=== PATIENT | female | born 1950 | race Caucasian/White ===

== ENCOUNTER 2017-08-15 19:34 | Inpatient (IN) | payer OTHER ==
[2017-08-15] MEDS ORDERED: ONDANSETRON 4 MG/2 ML VIAL ONE (19:56)
[2017-08-15] MEDS ORDERED: morphine SULFATE 4 MG/ML VIAL ONE ×2 (19:56→22:34)
[2017-08-15] MEDS ORDERED: SODIUM CHLORIDE 0.9% 1000 ML INFUS.BAG IV ONE (19:56)
[2017-08-15] MEDS ORDERED: ONDANSETRON 4 MG/2 ML VIAL IVPUSH ONE (19:56)
[2017-08-15] MEDS ORDERED: morphine SULFATE 4 MG/ML VIAL IVPUSH ONE (19:56)
--- NOTE | 2017-08-15 19:58 | PDOC ---
History of Present Illness - General History Source: Patient, Family Exam Limitations: No Limitations - History of Present Illness Initial Comments: 08/15/17 20:04 The patient is a 67 year old female, with a significant past medical history of asthma, SBO, IBS, diverticulitis(s/p colon resection), who presents to the emergency department complaining of diffuse abdominal pain since last night. The patient reports her pain began last night s/p bowel movement. At the time, patient reports her stool was composed of small hard brian and water. Patient reports she has not had a bowel movement since last night. Today, she reports associated nausea and vomiting (nonbloody/nonbilious). Patients daughter reports giving her Lactulose for her symptoms, with minimum relief. Patient reports her pain is similar to when shes had a bowel obstruction in the past. She denies any associated fever, headache, dizziness, lightheadedness, or joint aches. She denies any dysuria, hematuria, frequency, or urgency. She denies any chest pain, shortness of breath, diaphoresis, or palpitations. She denies any recent travel or sick contacts. Allergies: Lansoprazole, Metronidazole Past Surgical History: Colon resection Social History: Non smoker. No ETOH or recreational drug use. <Quita Wilkins - Last Filed: 08/15/17 21:47> <Ephraim Ramirez - Last Filed: 08/16/17 02:10> - General Chief Complaint: Pain Stated Complaint: I HAVE AN OBSTRUCTION Time Seen by Provider: 08/15/17 19:56 Past History <Quita Wilkins - Last Filed: 08/15/17 21:47> - Past Medical History COPD: No GI Disorders: Yes (IBS,OBSTRUCTION) - Suicide/Smoking/Psychosocial Hx Smoking History: Never smoked Have you smoked in the past 12 months: No Information on smoking cessation initiated: No Hx Alcohol Use: No Drug/Substance Use Hx: No Substance Use Type: None <Ephraim Ramirez - Last Filed: 08/16/17 02:10> - Past Medical History Allergies/Adverse Reactions: Allergies Allergy/AdvReac Type Severity Reaction Status Date / Time lansoprazole [From Prevacid] Allergy Intermediate Swelling Verified 08/15/17 19: 35 metronidazole [From Flagyl] AdvReac VOMITING' Verified 08/15/17 19:35 Home Medications: Ambulatory Orders Fluticasone/Vilanterol [Breo Ellipta 100-25 Mcg INH] 1 each IH DAILY 08/15/17 Loratadine [Claritin] 10 mg PO DAILY 08/15/17 Review of Systems - Review of Systems Able to Perform ROS?: Yes Comments:: 08/15/17 20:04 GENERAL/CONSTITUTIONAL: No fever or chills. No weakness. HEAD, EYES, EARS, NOSE AND THROAT: No change in vision. No ear pain or discharge. No sore throat. CARDIOVASCULAR: No chest pain or shortness of breath. RESPIRATORY: No cough, wheezing, or hemoptysis. GASTROINTESTINAL+Nausea, vomiting, constipation, diffuse abdominal pain. GENITOURINARY: No dysuria, frequency, or change in urination. MUSCULOSKELETAL: No joint or muscle swelling or pain. No neck or back pain. SKIN: No rash NEUROLOGIC: No headache, vertigo, loss of consciousness, or change in strength/ sensation. ENDOCRINE: No increased thirst. No abnormal weight change. HEMATOLOGIC/LYMPHATIC: No anemia, easy bleeding, or history of blood clots. ALLERGIC/IMMUNOLOGIC: No hives or skin allergy. <Quita Wilkins - Last Filed: 08/15/17 21:47> *Physical Exam - Vital Signs Last Vital Signs Temp Pulse Resp BP Pulse Ox 98.4 F 96 H 20 155/69 96 08/15/17 19:35 08/15/17 19:35 08/15/17 19:35 08/15/17 19:35 08/15/17 19:35 - Physical Exam Comments: 08/15/17 20:04 GENERAL: Awake, alert, and fully oriented, in no acute distress HEAD: No signs of trauma EYES: PERRLA, EOMI, sclera anicteric, conjunctiva clear ENT: Auricles normal inspection, hearing grossly normal, nares patent, oropharynx clear without exudates. Moist mucosa NECK: Normal ROM, supple, no lymphadenopathy, JVD, or masses LUNGS: Breath sounds equal, clear to auscultation bilaterally. No wheezes, and no crackles HEART: Regular rate and rhythm, normal S1 and S2, no murmurs, rubs or gallops ABDOMEN: Abdomen distended, tympanitic, and diffusely tender. No guarding, no rebound. No masses EXTREMITIES: Normal range of motion, no edema. No clubbing or cyanosis. No cords, erythema, or tenderness NEUROLOGICAL: Cranial nerves II through XII grossly intact. Normal speech, normal gait SKIN: Warm, Dry, normal turgor, no rashes or lesions noted. <Quita Wilkins - Last Filed: 08/15/17 21:47> - Vital Signs Last Vital Signs Temp Pulse Resp BP Pulse Ox 98.4 F 96 H 20 155/69 96 08/15/17 19:35 08/15/17 19:35 08/15/17 19:35 08/15/17 19:35 08/15/17 19:35 <Ephraim Ramirez - Last Filed: 08/16/17 02:10> ED Treatment Course - LABORATORY CBC & Chemistry Diagram: 08/15/17 21:00 08/15/17 21:00 - RADIOLOGY Radiograph Interpretation: 08/15/17 21:47 EXAM: XR of Abdomen INTERPRETED BY: Dr. Mendes REVIEWED BY: Dr. Ramirez FINDINGS: The lung bases are clear. There is air and feces seen through-out the colon. There is no bowel dilatation or suspicious air-fluid level. No free intraperitoneal air is identified. The imaged osseous structures are unremarkable. No radio-dense calculi. Fibroid uterus. There is a moderate amount of fecal material in the colon which can be seen with constipation. IMPRESSION: No evidence of obstruction, non acute. <Quita Wilkins - Last Filed: 08/15/17 21:47> - LABORATORY CBC & Chemistry Diagram: 08/15/17 21:00 08/15/17 21:00 <Ephraim Ramirez - Last Filed: 08/16/17 02:10> Medical Decision Making - Medical Decision Making 08/16/17 02:08 EKG: sinus at 87, nl axis, nl intervals, no ischemic findings SBO IV fluids symptomatic mgmt d/w Bhavesh of who reviewed the CT and will see in AM d/w Christopher of medicine who will admit <Ephraim Ramirez - Last Filed: 08/16/17 02:10> *DC/Admit/Observation/Transfer - Attestations Scribe Attestion: 08/15/17 20:05 Documentation prepared by Quita Wilkins, acting as medical referral coordinator for Ephraim Ramirez MD. <Quita Wilkins - Last Filed: 08/15/17 21:47> - Discharge Dispostion Admit: Yes <Ephraim Ramirez - Last Filed: 08/16/17 02:10> Diagnosis at time of Disposition: Small intestine obstruction - Discharge Dispostion Disposition: HOME
[2017-08-15 21:17] LABS: BASO % 1.7 % (0-2.0); EOS % 1.2 % (0-4.5); HEMATOCRIT 44.9 % (32.4-45.2); HEMOGLOBIN 15.5 GM/dl (10.7-15.3); LYMPH % 20.4 % (8-40); MCH 31.1 pg (25.7-33.7); MCHC 34.5 g/dl (32.0-36.0); MEAN CELL VOLUME 90.2 fl (80-96); MEAN PLT VOLUME 8.4 fl (7.5-11.1); MONO % 4.2 % (3.8-10.2); NEUT % 72.5 % (42.8-82.8); PLATELET COUNT 507 K/MM3 (134-434); RBC 4.98 M/mm3 (3.60-5.2); RDW 12.7 % (11.6-15.6); WHITE BLOOD COUNT 15.2 K/mm3 (4.0-10.8)
[2017-08-15 21:26] LABS: ALBUMIN 4.2 g/dl (3.5-5.0); ALK PHOS 104 U/L (32-92); ANION GAP 10 (8-16); BILIRUBIN,TOTAL 0.4 mg/dl (0.2-1.0); BLOOD UREA NITROGEN 11 mg/dl (7-18); CALCIUM 9.6 mg/dl (8.4-10.2); CHLORIDE 101 mmol/L (98-107); CO2 23 mmol/L (22-28); CREATININE 0.7 mg/dl (0.6-1.3); GLUCOSE,RANDOM 110 mg/dl (74-106); POTASSIUM 4.8 mmol/L (3.5-5.1); SGOT/AST 32 U/L (10-42); SGPT/ALT 34 U/L (10-40); SODIUM 134 mmol/L (136-145); TOT PROT 7.6 g/dl (6.4-8.3)
[2017-08-15 21:59] LABS: LIPASE 135 U/L (73-393)
[2017-08-15] MEDS ORDERED: morphine CARPU-JECT 4 MG/1 ML DISP.SYRIN IVPUSH ONE (22:33)
[2017-08-16] MEDS ORDERED: HURRICAINE SP EXT TUBE 1 EA EACH TP ONE (01:19)
[2017-08-16] MEDS ORDERED: LIDOCAINE HCL 2% JELLY (5 ML/TUBE) ONE (01:19)
[2017-08-16] MEDS: LIDOCAINE VISCOUS 2% ORAL/TOP 20 ML UNIT-DOSE CUP MM ONE ×2 (01:20→01:21)
[2017-08-16] MEDS: HURRICAINE SP EXT TUBE 1 EA EACH TP ONE ×2 (01:20→01:21)
[2017-08-16] MEDS ORDERED: LIDOCAINE VISCOUS 2% ORAL/TOP 20 ML UNIT-DOSE CUP ONE (01:20)
--- NOTE | 2017-08-16 01:20 | CONSULT ---
Consult Consult Specialty:: general surgery Referred by:: Dr. Ramirez Reason for Consultation:: bowel obstrution - History of Present Illness Chief Complaint: I have an obstuction History of Present Illness: 67yo female patinet of Dr. Kayla Montejo [facility] obesity, pre-diabetes, thrombocytosis , hypercholeterolemia, chronic constipation, diverticulitis had 3 hospitalizations prior to surgery, s/p sigmoidcolectomy at [facility], s/p right knee partial arthoplasty at [facility], multiple SBOs presented to emergency department with lower abdominal pain and vomiting reporting that she has a bowel obstruction. She has had similar episodes (2-3 times) since 2013 after having an an elective laparoscopic hybrid sigmoid colectomy. She was treated them with NGT decompression and resolved without operation. This episode started with mid-epigastric pain on thursday. She took some advil and zantac without relief. Thursday she then had and episode of emesis at 7pm that contained food she had for breakfast. He abdomen was distended and no flatus and she was reminded of previous episodes. He daughter ([employer]) prescribed some lactulose for her. In the ED she had a second episode of emesis. Now she has left lower abdominal pain, rated 3/10, non radiating. CT scan showed a transition point in the left lower abdomen. NGT put out a total of 500ml. This morning she had a lot of flatus and feels better. He last colonoscopy was in 2012. We were asked to assess - History Source History Provided By: Patient, Medical Record Limitations to Obtaining History: No Limitations - Past Medical History Gastrointestinal: Yes: Constipation, Diverticulitis, Other (bowel obstruction ) Heme/Onc: Yes: Other (Thrombocytosis on ASA) Musculoskeletal: Yes: Chronic low back pain, Osteoarthritis - Past Surgical History Past Surgical History: Yes: Colectomy (elective laparoscopic hybrid sigmoidectomy ) Additional Surgical History: right knee partial arthoplasty at [facility] - Alcohol/Substance Use Hx Alcohol Use: No History of Substance Use: reports: None - Smoking History Smoking history: Never smoked Have you smoked in the past 12 months: No - Social History History of Recent Travel: No Home Medications - Allergies Allergies/Adverse Reactions: Allergies Allergy/AdvReac Type Severity Reaction Status Date / Time lansoprazole [From Prevacid] Allergy Intermediate Swelling Verified 08/15/17 19: 35 metronidazole [From Flagyl] AdvReac VOMITING' Verified 08/15/17 19:35 - Home Medications Home Medications: Ambulatory Orders Fluticasone/Vilanterol [Breo Ellipta 100-25 Mcg INH] 1 each IH DAILY 08/15/17 Loratadine [Claritin] 10 mg PO DAILY 08/15/17 Aspirin [ASA -] PO BID 08/16/17 Family Disease History - Family Disease History Family Disease History: Other: Mother (Leukemia ) Review of Systems - Review of Systems Constitutional: denies: Chills, Fever, Unintentional Wgt. Loss HENT: denies: Difficult Swallowing, Throat Pain Neck: denies: Pain on Movement, Swollen Glands, Tenderness Cardiovascular: denies: Chest Pain, Palpitations Respiratory: denies: Cough, SOB Gastrointestinal: reports: Abdominal Pain, Constipation Genitourinary: denies: Burning, Discharge, Dysuria Musculoskeletal: reports: Extremity Pain (right knee) Endocrine: denies: Unexplained Weight Gain, Unexplained Weight Loss Hematology/Lymphatic: denies: Easily Bruised, Excessive Bleeding Psychiatric: denies: Anxiety, Depression Physical Exam Vital Signs: Vital Signs Temperature 98.4 F 08/15/17 19:35 Pulse Rate 96 H 08/15/17 19:35 Respiratory Rate 20 08/15/17 19:35 Blood Pressure 155/69 08/15/17 19:35 O2 Sat by Pulse Oximetry (%) 96 08/15/17 19:35 Vital Signs Period Temp Pulse Resp BP Sys/Sterling Pulse Ox Last 24 Hr 98.4 F-99 F 68-96 18-20 138-155/63-69 95-99 Intake & Output 08/15/17 08/16/17 08/16/17 23:59 07:59 15:59 Intake Total 400 0 Balance 400 0 Weight 150 lb 168 lb Intake: IV 400 Normal Saline - 1,000 ml 400 @ 100 mls/hr IV [facility]IR [facility] Rx#:[id number] Oral 0 Other: Voiding Method Toilet Toilet Bowel Movement No Height 5 ft 1 in 5 ft 1 in Body Mass Index (BMI) 28.3 31.7 Weight Measurement Method Standing Scale Weight Measurement Method Estimated by Staff Constitutional: Yes: No Distress, Calm, Obese Eyes: Yes: Conjunctiva Clear, EOM Intact HENT: Yes: Atraumatic, Normocephalic Neck: Yes: Supple, Trachea Midline Cardiovascular: Yes: Regular Rate and Rhythm, S1, S2. No: Murmur Respiratory: Yes: Regular, CTA Bilaterally Gastrointestinal: Yes: Normal Bowel Sounds, Soft, Abdomen, Obese, Tenderness ( LLQ). No: Tenderness, Epigastrium, Tenderness, Rebound ...Rectal Exam: Yes: Deferred Renal/: No: CVA Tenderness - Left, CVA Tenderness - Right Musculoskeletal: Yes: Back Pain Extremities: Yes: Other (right knee scar well healed). No: Amputation, Cold, Cool Edema: No Peripheral Pulses WNL: Yes Wound/Incision: Yes: Other (healed pfannensteil? (lap assistance port), supraumbilical scar as well) Neurological: Yes: Alert, Oriented Psychiatric: Yes: Alert, Oriented Labs: CBC,CMP WBC 11.9 K/mm3 (4.0-10.8) H 08/16/17 06:50 RBC 4.14 M/mm3 (3.60-5.2) 08/16/17 06:50 Hgb 13.2 GM/dl (10.7-15.3) D 08/16/17 06:50 Hct 37.8 % (32.4-45.2) D 08/16/17 06:50 MCV 91.3 fl (80-96) 08/16/17 06:50 MCH 31.9 pg (25.7-33.7) 08/16/17 06:50 MCHC 34.9 g/dl (32.0-36.0) 08/16/17 06:50 RDW 12.2 % (11.6-15.6) 08/16/17 06:50 Plt Count 451 K/MM3 (134-434) H 08/16/17 06:50 MPV 8.3 fl (7.5-11.1) 08/16/17 06:50 Neutrophils % 74.8 % (42.8-82.8) 08/16/17 06:50 Lymphocytes % 18.2 % (8-40) 08/16/17 06:50 Monocytes % 5.6 % (3.8-10.2) 08/16/17 06:50 Eosinophils % 1.1 % (0-4.5) 08/16/17 06:50 Basophils % 0.3 % (0-2.0) 08/16/17 06:50 Sodium 133 mmol/L (136-145) L 08/16/17 06:50 Potassium 4.0 mmol/L (3.5-5.1) 08/16/17 06:50 Chloride 104 mmol/L (98-107) 08/16/17 06:50 Carbon Dioxide 24 mmol/L (22-28) 08/16/17 06:50 Anion Gap 5 (8-16) L 08/16/17 06:50 BUN 10 mg/dl (7-18) 08/16/17 06:50 Creatinine 0.5 mg/dl (0.6-1.3) L D 08/16/17 06:50 Creat Clearance w eGFR > 60 (>60) 08/16/17 06:50 POC Glucometer 158 UNITS (80-120) 08/16/17 02:57 Random Glucose 113 mg/dl (74-106) H 08/16/17 06:50 Lactic Acid 1.4 mmol/L (0.0-2.0) 08/16/17 08:15 Calcium 8.3 mg/dl (8.4-10.2) L 08/16/17 06:50 Magnesium 1.9 mg/dL (1.8-2.4) 08/16/17 06:50 Total Bilirubin 0.4 mg/dl (0.2-1.0) 08/16/17 06:50 AST 23 U/L (10-42) D 08/16/17 06:50 ALT 28 U/L (10-40) 08/16/17 06:50 Alkaline Phosphatase 83 U/L (32-92) D 08/16/17 06:50 Total Protein 6.1 g/dl (6.4-8.3) L 08/16/17 06:50 Albumin 3.4 g/dl (3.5-5.0) L 08/16/17 06:50 Lipase 135 U/L (73-393) 08/15/17 21:00 Imaging - Results X-ray: Report Reviewed, Image Reviewed Cat Scan: Report Reviewed, Image Reviewed (partial bowel obstruction pattern with transition point in LLQ anteriorly. dilated contrast filled stomach) Problem List - Problems (1) Small intestine obstruction Assessment/Plan: 67yo female MMP with resolving SBO maybe element of acute diverticulitis (wbc 15.2 -->11.9), Lactic acid (2.5 -->1.4), NGT 500ml total, now passing flatus, distension improved. She does not require emergency surgery but should be monitored closely. NPO and IVF hydration IV antibiotics empiric - mefoxin NGT decomprssion repeat labs correct electrolytes repeat abdominal xray serial abdominal exams Thank you for the opportunity to participate in the care of this patient. Code(s): K56.609 - UNSP INTESTNL OBST, UNSP TO PARTIAL VERSUS COMPLETE OBST (2) Diverticulitis large intestine Code(s): K57.32 - DVTRCLI OF LG INT W/O PERFORATION OR ABSCESS W/O BLEEDING (3) Abdominal pain, left lower quadrant Code(s): R10.32 - LEFT LOWER QUADRANT PAIN (4) Chronic constipation Code(s): K59.09 - OTHER CONSTIPATION (5) Osteoarthritis Code(s): M19.90 - UNSPECIFIED OSTEOARTHRITIS, UNSPECIFIED SITE (6) Hypercholesteremia Code(s): E78.00 - PURE HYPERCHOLESTEROLEMIA, UNSPECIFIED (7) Obesity (BMI 30.0-34.9) Code(s): E66.9 - OBESITY, UNSPECIFIED (8) Pre-diabetes Code(s): R73.03 - PREDIABETES
[2017-08-16] MEDS: morphine CARPU-JECT 2 MG/1 ML DISP.SYRIN IVPUSH PRN ×2 (03:49→22:24)
[2017-08-16] MEDS: SODIUM CHLORIDE 1,000 ML IV SCH (03:53)
[2017-08-16 04:29] VITALS: BMI 31.7
--- NOTE | 2017-08-16 07:33 | HP ---
CHIEF COMPLAINT: abdominal pain PCP: HISTORY OF PRESENT ILLNESS: Patient is a 67 year old female with a significant past medical history of asthma, SBO, IBS, diverticulitis (s/p colon resection). She presents to the ED with complaints of abdominal x 1 day. The patient reports her pain began on the evening of 08/14 after a bowel movement. She states that her bowel movements are usually are normal, and regular. Yesterday she reports having nausea, vomiting (nonbloody/nonbilious). Patient has had small bowel obstructions in the past and states that the pain she is having is similar to when she had SBO in the past. She denies any associated fever, headache, dizziness, lightheadedness, or joint aches. She denies any dysuria, hematuria, frequency, or urgency. She denies any chest pain, shortness of breath, diaphoresis, or palpitations. She denies any recent travel or sick contacts. On exam, she denies abdominal pain but is having nausea. She states that she is now passing gas. ER course was notable for: (1) NGT with 200cc light brown drainage (2) lactic acidosis 2.5 (3) abd xray shows no sign of free air. Large air fluid level in the stomach. There is a large fibroid calcification in the pelvis. There is some retained stool in the colon with some air distestend loops of small bowel seen centrally. There are some scattered air fluid levels. Organomegaly is not seen. Upper abdominal calcificatins of significance or not visualized. Recent Travel: PAST MEDICAL HISTORY: asthma, SBO, IBS, diverticulitis (s/p colon resection) PAST SURGICAL HISTORY: diverticulitis (s/p colon resection), right knee partial arthoplasty Social History: Smoking: denies Alcohol: denies Drugs: denies Family History: Allergies lansoprazole [From Prevacid] Allergy (Intermediate, Verified 08/15/17 19:35) Swelling metronidazole [From Flagyl] Adverse Reaction (Verified 08/15/17 19:35) VOMITING' HOME MEDICATIONS: Home Medications Medication Instructions Recorded Fluticasone/Vilanterol [Breo 1 each IH DAILY 08/15/17 Ellipta 100-25 Mcg INH] Loratadine [Claritin] 10 mg PO DAILY 08/15/17 Aspirin [ASA -] PO BID 08/16/17 REVIEW OF SYSTEMS CONSTITUTIONAL: Absent: fever, chills, diaphoresis, generalized weakness, malaise, loss of appetite, weight change HEENT: Absent: rhinorrhea, nasal congestion, throat pain, throat swelling, difficulty swallowing, mouth swelling, ear pain, eye pain, visual changes CARDIOVASCULAR: Absent: chest pain, syncope, palpitations, irregular heart rate, lightheadedness , peripheral edema RESPIRATORY: Absent: cough, shortness of breath, dyspnea with exertion, orthopnea, wheezing, stridor, hemoptysis GENITOURINARY: Absent: dysuria, frequency, urgency, hesitancy, hematuria, flank pain, genital pain MUSCULOSKELETAL: Absent: myalgia, arthralgia, joint swelling, back pain, neck pain SKIN: Absent: rash, itching, pallor HEMATOLOGIC/IMMUNOLOGIC: Absent: easy bleeding, easy bruising, lymphadenopathy, frequent infections ENDOCRINE: Absent: unexplained weight gain, unexplained weight loss, heat intolerance, cold intolerance NEUROLOGIC: Absent: headache, focal weakness or paresthesias, dizziness, unsteady gait, seizure, mental status changes, bladder or bowel incontinence PSYCHIATRIC: Absent: anxiety, depression, suicidal or homicidal ideation, hallucinations. PHYSICAL EXAMINATION Vital Signs - 24 hr 08/15/17 08/16/17 08/16/17 19:35 00:00 04:15 Temperature 98.4 F 99 F Pulse Rate 96 H 85 Pulse Rate [ 68 Left Radial] Respiratory 20 18 18 Rate Blood Pressure 155/69 138/63 Blood Pressure 142/68 [Left Arm] O2 Sat by Pulse 96 99 95 Oximetry (%) GENERAL: Awake, alert, and fully oriented, in no acute distress. HEAD: Normal with no signs of trauma. EYES: Pupils equal, round and reactive to light, extraocular movements intact, sclera anicteric, conjunctiva clear. No lid lag. EARS, NOSE, THROAT: Ears normal, nares patent, oropharynx clear without exudates. Moist mucous membranes. NECK: Normal range of motion, supple without lymphadenopathy, JVD, or masses. LUNGS: Breath sounds equal, clear to auscultation bilaterally. No wheezes, and no crackles. No accessory muscle use. HEART: Regular rate and rhythm, normal S1 and S2 without murmur, rub or gallop. ABDOMEN: soft, mildly distended, non tender, + bowel sounds MUSCULOSKELETAL: Normal range of motion at all joints. No bony deformities or tenderness. No CVA tenderness. UPPER EXTREMITIES: 2+ pulses, warm, well-perfused. No cyanosis. No clubbing. No peripheral edema. LOWER EXTREMITIES: 2+ pulses, warm, well-perfused. No calf tenderness. No peripheral edema. NEUROLOGICAL: Cranial nerves II-XII intact. Normal speech. Normal gait. Laboratory Results - last 24 hr 08/15/17 08/15/17 08/16/17 21:00 21:00 02:40 WBC 15.2 H RBC 4.98 Hgb 15.5 H Hct 44.9 MCV 90.2 MCH 31.1 MCHC 34.5 RDW 12.7 Plt Count 507 H MPV 8.4 Neutrophils % 72.5 Lymphocytes % 20.4 Monocytes % 4.2 Eosinophils % 1.2 Basophils % 1.7 Sodium 134 L Potassium 4.8 Chloride 101 Carbon Dioxide 23 Anion Gap 10 BUN 11 Creatinine 0.7 Creat Clearance w eGFR > 60 POC Glucometer Random Glucose 110 H Lactic Acid 2.5 H* Calcium 9.6 Total Bilirubin 0.4 AST 32 ALT 34 Alkaline Phosphatase 104 H Total Protein 7.6 Albumin 4.2 Lipase 135 08/16/17 02:57 WBC RBC Hgb Hct MCV MCH MCHC RDW Plt Count MPV Neutrophils % Lymphocytes % Monocytes % Eosinophils % Basophils % Sodium Potassium Chloride Carbon Dioxide Anion Gap BUN Creatinine Creat Clearance w eGFR POC Glucometer 158 Random Glucose Lactic Acid Calcium Total Bilirubin AST ALT Alkaline Phosphatase Total Protein Albumin Lipase ASSESSMENT/PLAN: Patient is a 67 year old female with a significant past medical history of asthma, SBO, IBS, diverticulitis (s/p colon resection). She presents to the ED with complaints of abdominal x 1 day. The patient reports her pain began on the evening of 08/14 after a bowel movement. She states that her bowel movements are usually are normal, and regular. Yesterday she reports having nausea, vomiting (nonbloody/nonbilious). Patient has had small bowel obstructions in the past and states that the pain she is having is similar to when she had SBO in the past. She denies any associated fever, headache, dizziness, lightheadedness, or joint aches. She denies any dysuria, hematuria, frequency, or urgency. She denies any chest pain, shortness of breath, diaphoresis, or palpitations. She denies any recent travel or sick contacts. On exam, she denies abdominal pain but is having nausea. She states that she is now passing gas. Imaging: CT scan: partial bowel obstruction pattern with transition point in LLQ anteriorly. dilated contrast filled stomach Abdominal xray: no signs of SBO, contrast passage into colon. fibroid calcification. NGT in place GI: Abdominal pain, acute NPO, IVF hydration, antibiotics NGT to low int. sx, 290 cc light brown Monitor labs, monitor electrolytes Zofran prn, pain management Serial abdominal exam + bowel sounds Monitor output Surgery following ID following Lactic acidosis, resolved Asthma, history not in acute exacerbation F.E.N. Fluids: IVF, NPO Electrolytes: monitor Nutrition: npo Prophylaxis: ambulatory GI; pepcid IV Disposition: full code Visit type - Emergency Visit Emergency Visit: Yes ED Registration Date: 08/16/17 Care time: The patient presented to the Emergency Department on the above date and was hospitalized for further evaluation of their emergent condition. - New Patient This patient is new to me today: Yes Date on this admission: 08/16/17 - Critical Care Critical Care patient: No
[2017-08-16] MEDS ORDERED: cefOXitin SODIUM 2 GM VIAL (RESTRICTED TO ID) IVPB ONE (07:34)
[2017-08-16] MEDS ORDERED: ONDANSETRON 4 MG/2 ML VIAL IVPUSH PRN (07:37)
[2017-08-16 08:48] LABS: BASO % 0.3 % (0-2.0); EOS % 1.1 % (0-4.5); HEMATOCRIT 37.8 % (32.4-45.2); HEMOGLOBIN 13.2 GM/dl (10.7-15.3); LYMPH % 18.2 % (8-40); MCH 31.9 pg (25.7-33.7); MCHC 34.9 g/dl (32.0-36.0); MEAN CELL VOLUME 91.3 fl (80-96); MEAN PLT VOLUME 8.3 fl (7.5-11.1); MONO % 5.6 % (3.8-10.2); NEUT % 74.8 % (42.8-82.8); PLATELET COUNT 451 K/MM3 (134-434); RBC 4.14 M/mm3 (3.60-5.2); RDW 12.2 % (11.6-15.6); WHITE BLOOD COUNT 11.9 K/mm3 (4.0-10.8)
[2017-08-16] MEDS ORDERED: CEFOXITIN SODIUM 1 GM in DEXTROSE 5%-WATER - 100 ML IVPB ONE (09:00)
[2017-08-16 09:01] LABS: ALBUMIN 3.4 g/dl (3.5-5.0); ALK PHOS 83 U/L (32-92); ANION GAP 5 (8-16); BILIRUBIN,TOTAL 0.4 mg/dl (0.2-1.0); BLOOD UREA NITROGEN 10 mg/dl (7-18); CALCIUM 8.3 mg/dl (8.4-10.2); CHLORIDE 104 mmol/L (98-107); CO2 24 mmol/L (22-28); CREATININE 0.5 mg/dl (0.6-1.3); GLUCOSE,RANDOM 113 mg/dl (74-106); MAGNESIUM 1.9 mg/dL (1.8-2.4); SGOT/AST 23 U/L (10-42); SGPT/ALT 28 U/L (10-40); SODIUM 133 mmol/L (136-145); TOT PROT 6.1 g/dl (6.4-8.3)
[2017-08-16] MEDS: HEPARIN NA (PORCINE) 5,000 UNITS/ML 1ML VIAL SQ SCH ×4 (10:10→21:35)
[2017-08-16] MEDS: FAMOTIDINE IV 20 MG/12 ML VIAL IVPUSH SCH ×2 (10:17→22:24)
[2017-08-16] MEDS ORDERED: ACETAMINOPHEN 1000 MG/100 ML VIAL (NON FORMULARY) IVPB ONE ×2 (11:45→20:49)
--- NOTE | 2017-08-16 12:45 | CON.ID ---
Consult Consult Specialty:: infectious diseases Reason for Consultation:: bowel obstruction,lactic acidosis - History of Present Illness Chief Complaint: abd pain History of Present Illness: 67yo female with PMH obesity, pre-diabetes, thrombocytosis, hypercholeterolemia , chronic constipation, multiple episodes of diverticulitis , s/p sigmoidcolectomy s/p right knee partial arthoplasty , multiple SBOs admitted because of lower abd pain mainly in the left lower quadrant. patient also reports that she was having episodes of vomiting patient had such episodes in the past and was treated conservatively. patient was worked up and CT scan showed a transition point in the left lower abdomen. patient was seen by surgical team who is planning to watch the patient conservatively she currently is comfortable and has a ng tube placed which is draining says after ng tube she feels better - History Source History Provided By: Patient Limitations to Obtaining History: No Limitations - Past Medical History Gastrointestinal: Yes: Constipation, Diverticulitis, Other (bowel obstruction ) Musculoskeletal: Yes: Chronic low back pain, Osteoarthritis - Past Surgical History Past Surgical History: Yes: Colectomy (elective laparoscopic hybrid sigmoidectomy ) Additional Surgical History: right knee partial arthoplasty at [facility] - Alcohol/Substance Use Hx Alcohol Use: No History of Substance Use: reports: None - Smoking History Smoking history: Never smoked Have you smoked in the past 12 months: No - Social History History of Recent Travel: No Home Medications - Allergies Allergies/Adverse Reactions: Allergies Allergy/AdvReac Type Severity Reaction Status Date / Time lansoprazole [From Prevacid] Allergy Severe Swelling Verified 02/18/15 08:06 metronidazole [From Flagyl] AdvReac Intermediate Vomiting Verified 02/18/15 08: 06 - Home Medications Home Medications: Ambulatory Orders Non-Formulary 9 grams PO BID 02/18/15 Fluticasone/Vilanterol [Breo Ellipta 100-25 Mcg INH] 1 each IH DAILY 08/15/17 Loratadine [Claritin] 10 mg PO DAILY 08/15/17 Aspirin [ASA -] PO BID 08/16/17 Family Disease History - Family Disease History Family Disease History: Other: Mother (Leukemia ) Review of Systems - Review of Systems Constitutional: reports: No Symptoms Eyes: reports: No Symptoms HENT: reports: No Symptoms Cardiovascular: reports: No Symptoms Respiratory: reports: No Symptoms Gastrointestinal: reports: Abdominal Pain, Vomiting, Other Genitourinary: reports: No Symptoms Musculoskeletal: reports: No Symptoms Endocrine: reports: No Symptoms Hematology/Lymphatic: reports: No Symptoms Psychiatric: reports: No Symptoms Physical Exam Vital Signs: Vital Signs Temperature 99 F 08/16/17 04:15 Pulse Rate 85 08/16/17 04:15 Respiratory Rate 18 08/16/17 08:20 Blood Pressure 138/63 08/16/17 04:15 O2 Sat by Pulse Oximetry (%) 95 08/16/17 08:20 Constitutional: Yes: Well Nourished, Calm, Mild Distress, Obese Eyes: Yes: Conjunctiva Clear HENT: Yes: Atraumatic, Normocephalic Neck: Yes: Supple, Trachea Midline Respiratory: Yes: Regular, Poor Air Entry (at the bases) Gastrointestinal: Yes: Soft, Tenderness, Other (absent bowel sounds ng tube in place) Musculoskeletal: Yes: WNL Extremities: Yes: WNL Neurological: Yes: Alert, Oriented Psychiatric: Yes: Alert, Oriented Labs: CBC, BMP 08/16/17 06:50 08/16/17 06:50 Imaging - Results Chest X-ray: Report Reviewed, Image Reviewed X-ray: Report Reviewed, Image Reviewed Cat Scan: Report Reviewed, Image Reviewed Assessment/Plan Problem List - Problems (1) Small intestine obstruction Code(s): K56.609 - UNSP INTESTNL OBST, UNSP TO PARTIAL VERSUS COMPLETE OBST (2) Diverticulitis large intestine Code(s): K57.32 - DVTRCLI OF LG INT W/O PERFORATION OR ABSCESS W/O BLEEDING (3) Abdominal pain, left lower quadrant Code(s): R10.32 - LEFT LOWER QUADRANT PAIN (4) Chronic constipation Code(s): K59.09 - OTHER CONSTIPATION (5) Osteoarthritis Code(s): M19.90 - UNSPECIFIED OSTEOARTHRITIS, UNSPECIFIED SITE (6) Hypercholesteremia Code(s): E78.00 - PURE HYPERCHOLESTEROLEMIA, UNSPECIFIED (7) Obesity (BMI 30.0-34.9) Code(s): E66.9 - OBESITY, UNSPECIFIED (8) Pre-diabetes Code(s): R73.03 - PREDIABETES plan continue mgmt as per surgery ng tube suction hydration continue abx
[2017-08-16] MEDS ORDERED: PIPERACILLIN/TAZOB 3.375 GM 50 ML IVPB SCH (18:00)
[2017-08-16] MEDS: PIPERACILLIN/TAZOB 3.375 GM 3.375 GM in DEXTROSE 5%-WATER - 50 ML IVPB SCH (18:13)
[2017-08-17] MEDS: PIPERACILLIN/TAZOB 3.375 GM 3.375 GM in DEXTROSE 5%-WATER - 50 ML IVPB SCH ×3 (02:02→18:22)
[2017-08-17] MEDS: SODIUM CHLORIDE 1,000 ML IV SCH (02:30)
--- NOTE | 2017-08-17 08:11 | PN ---
Physical Exam: SUBJECTIVE: Patient seen and examined, ambulatory throughout nursing station, reports one bm of small hard stool, patient denies any nausea, patient is declining any venipuncture. OBJECTIVE: Patient is a 67 year old female with a significant past medical history of asthma, SBO, IBS, diverticulitis (s/p colon resection). Patient was admitted from the emergency department for a small bowel obstruction Vital Signs Period Temp Pulse Resp BP Sys/Sterling Pulse Ox Last 24 Hr 97.6 F-98.4 F 70-79 18-20 117-140/34-59 94-97 GENERAL: The patient is awake, alert, and fully oriented, in no acute distress. HEAD: Normal with no signs of trauma. EYES: PERRL, extraocular movements intact, sclera anicteric, conjunctiva clear. No ptosis. ENT: Ears normal, nares patent, oropharynx clear without exudates, moist mucous membranes. NECK: Trachea midline, full range of motion, supple. LUNGS: Breath sounds equal, clear to auscultation bilaterally, no wheezes, no crackles, no accessory muscle use. HEART: Regular rate and rhythm, S1, S2 without murmur, rub or gallop. ABDOMEN: Soft, diffuse abdominal tenderness, nondistended, hypoactive bowel sounds, no guarding, no rebound, no hepatosplenomegaly, no masses. EXTREMITIES: 2+ pulses, warm, well-perfused, no edema. NEUROLOGICAL: Cranial nerves II through XII grossly intact. Normal speech, gait not observed. PSYCH: Normal mood, normal affect. SKIN: Warm, dry, normal turgor, no rashes or lesions noted Laboratory Results - last 24 hr 08/16/17 08/16/17 08/16/17 06:50 06:50 08:15 WBC 11.9 H RBC 4.14 Hgb 13.2 D Hct 37.8 D MCV 91.3 MCH 31.9 MCHC 34.9 RDW 12.2 Plt Count 451 H MPV 8.3 Neutrophils % 74.8 Lymphocytes % 18.2 Monocytes % 5.6 Eosinophils % 1.1 Basophils % 0.3 Sodium 133 L Potassium 4.0 Chloride 104 Carbon Dioxide 24 Anion Gap 5 L BUN 10 Creatinine 0.5 L D Creat Clearance w eGFR > 60 POC Glucometer Random Glucose 113 H Lactic Acid 1.4 Calcium 8.3 L Magnesium 1.9 Total Bilirubin 0.4 AST 23 D ALT 28 Alkaline Phosphatase 83 D Total Protein 6.1 L Albumin 3.4 L 08/16/17 08/17/17 21:17 05:40 WBC RBC Hgb Hct MCV MCH MCHC RDW Plt Count MPV Neutrophils % Lymphocytes % Monocytes % Eosinophils % Basophils % Sodium Potassium Chloride Carbon Dioxide Anion Gap BUN Creatinine Creat Clearance w eGFR POC Glucometer 102 103 Random Glucose Lactic Acid Calcium Magnesium Total Bilirubin AST ALT Alkaline Phosphatase Total Protein Albumin Active Medications Generic Name Dose Route Start Last Admin Trade Name Freq PRN Reason Stop Dose Admin Acetaminophen 1,000 mg 08/17/17 08:15 Ofirmev Injection - IVPB 08/17/17 08:16 ONCE ONE Heparin Sodium (Porcine) 5,000 unit 08/16/17 10:00 08/16/17 21:35 Heparin - SQ Not Given BID JOHANN Sodium Chloride 1,000 mls @ 100 mls/hr 08/16/17 02:30 08/17/17 02:30 Normal Saline - IV 100 mls/hr ASDIR JOHANN Administration Famotidine 20 mg in 12 mls @ 144 mls/hr 08/16/17 10:00 08/16/17 22:24 Pepcid 20 Mg/12 Ml Push IVPUSH 144 mls/hr BID JOHANN Administration Piperacillin Sod/Tazobactam 50 mls @ 100 mls/hr 08/16/17 18:00 08/17/17 02:02 Sod 3.375 gm/ Dextrose IVPB 100 mls/hr Q8H-IV JOHANN Administration Morphine Sulfate 2 mg 08/16/17 03:39 08/16/17 22:24 Morphine Injection - IVPUSH 2 mg Q4H PRN Administration PAIN LEVEL 6-10 Ondansetron HCl 4 mg 08/16/17 07:37 Zofran Injection IVPUSH Q6H PRN NAUSEA IMAGING CT scan: partial bowel obstruction pattern with transition point in LLQ anteriorly. dilated contrast filled stomach Abdominal xray: no signs of SBO, contrast passage into colon. fibroid calcification. NGT in place ABD XRAY: no signs of small bowel obstruction, ngt in stomach ASSESSMENT/PLAN:GI: 1) GI SBO - resolved after review of xray large amounts of stool noted in colon, discussed with Dr Ospina (surgeon), nulyetly ordered - continue serial abdominal exams - pt adamently declined venipuncture, pt is afebrile, continue empiric zosyn - Dr Ospina (surgery) consulted and following 2) pulm asthma - no acute excerbation at this time, continue prn albuterol F.E.N. Fluids: IVF, NPO Electrolytes: monitor Nutrition: npo Prophylaxis: ambulatory GI; pepcid IV Disposition: full code Visit type - Emergency Visit Emergency Visit: Yes ED Registration Date: 08/16/17 Care time: The patient presented to the Emergency Department on the above date and was hospitalized for further evaluation of their emergent condition. - New Patient This patient is new to me today: Yes Date on this admission: 08/17/17 - Critical Care Critical Care patient: No - Discharge Referral Referred to [facility] Med P.C.: No
[2017-08-17] MEDS ORDERED: ACETAMINOPHEN 1000 MG/100 ML VIAL (NON FORMULARY) IVPB ONE (08:15)
--- NOTE | 2017-08-17 09:44 | PN ---
Progress Note, Physician Chief Complaint: SBO History of Present Illness: 67yo female PMH obesity, pre-diabetes, thrombocytosis, hypercholeterolemia, chronic constipation, diverticulitis had 3 hospitalizations prior to surgery, s/ p sigmoidcolectomy, multiple SBOs presented to emergency department with lower abdominal pain and vomiting reporting that she has a bowel obstruction. NGT output very low. she reports having flatus, xray shows chronic constipation - Current Medication List Current Medications: Active Medications Heparin Sodium (Porcine) (Heparin -) 5,000 unit SQ BID JOHANN Last Admin: 08/16/17 21:35 Dose: Not Given Sodium Chloride (Normal Saline -) 1,000 mls @ 100 mls/hr IV ASDIR JOHANN Last Admin: 08/17/17 02:30 Dose: 100 mls/hr Piperacillin Sod/Tazobactam (Sod 3.375 gm/ Dextrose) 50 mls @ 100 mls/hr IVPB Q8H-IV JOHANN Last Admin: 08/17/17 02:02 Dose: 100 mls/hr Famotidine/Sodium Chloride (Pepcid 20 Mg Premixed Ivpb -) 20 mg in 50 mls @ 100 mls/hr IVPB BID JOHANN Morphine Sulfate (Morphine Injection -) 2 mg IVPUSH Q4H PRN PRN Reason: PAIN LEVEL 6-10 Last Admin: 08/16/17 22:24 Dose: 2 mg Ondansetron HCl (Zofran Injection) 4 mg IVPUSH Q6H PRN PRN Reason: NAUSEA Polyethylene Glycol/Electrolytes (Nulytely) 4,000 ml PO ONCE ONE Stop: 08/17/17 09:37 - Objective Vital Signs: Vital Signs Temperature 97.6 F 08/17/17 04:00 Pulse Rate 79 08/17/17 04:00 Respiratory Rate 18 08/17/17 04:00 Blood Pressure 117/34 08/17/17 04:00 O2 Sat by Pulse Oximetry (%) 97 08/17/17 06:01 Vital Signs Period Temp Pulse Resp BP Sys/Sterling Pulse Ox Last 24 Hr 97.6 F-98.4 F 70-79 18-20 117-140/34-59 94-97 Intake & Output 08/16/17 08/17/17 08/17/17 23:59 07:59 15:59 Intake Total 1200 1100 Output Total 200 200 Balance 1000 900 Intake: IV 1100 1100 Normal Saline - 1,000 ml 1000 1100 @ 100 mls/hr IV ASDIR JOHANN Rx#:[id number] PEPCID 20 MG/12 ML PUSH 100 20 mg In 12 ml @ 144 mls/ hr IVPUSH BID JOHANN Rx#: [id number] IVPB 100 Output: Gastric Drainage 200 200 Other: Voiding Method Toilet Toilet # Unmeasured Voids Void 2 2 Bowel Movement No No Constitutional: Yes: Well Nourished, No Distress, Calm Eyes: Yes: Conjunctiva Clear, EOM Intact HENT: Yes: Atraumatic, Normocephalic Neck: Yes: Supple, Trachea Midline Cardiovascular: Yes: Regular Rate and Rhythm, S1, S2. No: Murmur Respiratory: Yes: Regular, CTA Bilaterally Gastrointestinal: Yes: Normal Bowel Sounds, Soft, Abdomen, Obese, Tenderness ( imorived) Genitourinary: No: CVA Tenderness - Left, CVA Tenderness - Right Extremities: No: Cool, Cyanosis Edema: Yes Neurological: Yes: Alert, Oriented Psychiatric: Yes: Alert, Oriented Labs: CBC, BMP 08/16/17 06:50 08/16/17 06:50 Problem List - Problems (1) Small intestine obstruction Assessment/Plan: 67yo female MMP with resolving SBO maybe element of acute diverticulitis (wbc 15.2 -->11.9), Lactic acid (2.5 -->1.4), NGT 400ml overnight. now passing flatus, distension improved. She does not require emergency surgery but should be monitored. Large BM reported after nulytely NGT discontinued. full liquids ordered. IV antibiotics empiric repeat labs repeat abdominal xray full liquid diet advance as tolerated Home Bowel Regimen Fiber supplement daily Miralax 17g PO daily Colace 100mg PO TID can be discharged when tolerating diet. Code(s): K56.609 - UNSP INTESTNL OBST, UNSP TO PARTIAL VERSUS COMPLETE OBST (2) Osteoarthritis Code(s): M19.90 - UNSPECIFIED OSTEOARTHRITIS, UNSPECIFIED SITE (3) Diverticulitis large intestine Code(s): K57.32 - DVTRCLI OF LG INT W/O PERFORATION OR ABSCESS W/O BLEEDING (4) Chronic constipation Code(s): K59.09 - OTHER CONSTIPATION (5) Hypercholesteremia Code(s): E78.00 - PURE HYPERCHOLESTEROLEMIA, UNSPECIFIED (6) Abdominal pain, left lower quadrant Code(s): R10.32 - LEFT LOWER QUADRANT PAIN (7) Obesity (BMI 30.0-34.9) Code(s): E66.9 - OBESITY, UNSPECIFIED (8) Pre-diabetes Code(s): R73.03 - PREDIABETES
[2017-08-17] MEDS ORDERED: PEG/ELECTROLYTES (NULYTELY) 4,000 ML BOTTLE PO ONE (10:00)
[2017-08-17] MEDS: FAMOTIDINE 20 MG/50 ML IVPB 20 MG/50 ML MG IVPB SCH ×2 (10:16→22:21)
[2017-08-17] MEDS ORDERED: OXYTOCIN 20 UNITS in 0.9% NS 20 UNIT/1,000 ML INFUS.BAG IV SCH (10:30)
[2017-08-17] MEDS ORDERED: SODIUM CHLORIDE 0.9%/KCL 20 MEQ/1,000 ML INFUS.BAG IV SCH (10:45)
[2017-08-17] MEDS ORDERED: ALBUTEROL SO4 0.083% IH SOL 2.5 MG/3 ML VIAL.NEB. NEB PRN (10:48)
[2017-08-17] MEDS: HEPARIN NA (PORCINE) 5,000 UNITS/ML 1ML VIAL SQ SCH ×2 (10:49→22:21)
[2017-08-17] MEDS: POTASSIUM CHLORIDE 20 MEQ in SODIUM CHLORIDE 1,000 ML IVPB SCH ×2 (12:15→22:21)
[2017-08-17 14:48] LABS: PH,URINE 8.5 (4.5-8); URINE APPEARANCE Clear; URINE BILIRUBIN Negative (NEGATIVE); URINE BLOOD Negative (NEGATIVE); URINE COLOR YELLOW; URINE GLUCOSE (UA) Negative (NEGATIVE); URINE KETONE Negative (NEGATIVE); URINE LEUK ESTERASE Negative (NEGATIVE); URINE NITRITE Negative (NEGATIVE); URINE PROTEIN Negative (NEGATIVE); URINE UROBILINOGEN 0.2 (0.2-1.0)
[2017-08-17] MEDS ORDERED: DOCUSATE SODIUM 100 MG CAPSULE (FP) PO PRN (16:22)
[2017-08-17] MEDS ORDERED: POLYETHYLENE GLYCOL 3350 119 GM BTL PO ONE (16:23)
[2017-08-17] MEDS: PSYLLIUM 5.85 GM PACKET PO SCH (18:22)
[2017-08-17] MEDS: morphine CARPU-JECT 2 MG/1 ML DISP.SYRIN IVPUSH PRN (21:00)
--- NOTE | 2017-08-17 21:25 | PN ---
Progress Note, Physician History of Present Illness: patient feels much better she had golytly patient had bowel movement and passing flatus lactic acid normal still with left lower quadrant pain but better - Current Medication List Current Medications: Active Medications Albuterol Sulfate (Ventolin 0.083% Nebulizer Soln -) 1 amp NEB Q4H PRN PRN Reason: SHORT OF BREATH/WHEEZING Docusate Sodium (Colace -) 100 mg PO Q8H PRN PRN Reason: CONSTIPATION Heparin Sodium (Porcine) (Heparin -) 5,000 unit SQ BID [facility] Last Admin: 08/17/17 10:49 Dose: Not Given Piperacillin Sod/Tazobactam (Sod 3.375 gm/ Dextrose) 50 mls @ 100 mls/hr IVPB Q8H-IV [facility] Last Admin: 08/17/17 18:22 Dose: Not Given Famotidine/Sodium Chloride (Pepcid 20 Mg Premixed Ivpb -) 20 mg in 50 mls @ 100 mls/hr IVPB BID [facility] Last Admin: 08/17/17 10:16 Dose: 100 mls/hr Potassium Chloride 20 meq/ (Sodium Chloride) 1,010 mls @ 100 mls/hr IVPB Q10H [facility] Last Admin: 08/17/17 12:15 Dose: 100 mls/hr Morphine Sulfate (Morphine Injection -) 2 mg IVPUSH Q4H PRN PRN Reason: PAIN LEVEL 6-10 Last Admin: 08/16/17 22:24 Dose: 2 mg Ondansetron HCl (Zofran Injection) 4 mg IVPUSH Q6H PRN PRN Reason: NAUSEA Psyllium Hydrophilic Mucilloid (Metamucil (Sugar-Free) -) 5.85 gm PO DAILY [facility] Last Admin: 08/17/17 18:22 Dose: Not Given - Objective Vital Signs: Vital Signs Temperature 97.8 F 08/17/17 16:00 Pulse Rate 74 08/17/17 16:00 Respiratory Rate 18 08/17/17 16:00 Blood Pressure 131/55 08/17/17 16:00 O2 Sat by Pulse Oximetry (%) 98 08/17/17 16:00 Constitutional: Yes: No Distress, Calm Cardiovascular: Yes: Regular Rate and Rhythm Respiratory: Yes: Regular, CTA Bilaterally Gastrointestinal: Yes: Soft, Hypoactive Bowel Sounds, Other (ng tube in place) Musculoskeletal: Yes: WNL Extremities: Yes: WNL Neurological: Yes: Alert, Oriented Psychiatric: Yes: Alert, Oriented Labs: CBC, BMP 08/16/17 06:50 08/16/17 06:50 - ....Imaging X-ray: Report Reviewed, Image Reviewed Assessment/Plan Problem List - Problems (1) Small intestine obstruction Code(s): K56.609 - UNSP INTESTNL OBST, UNSP TO PARTIAL VERSUS COMPLETE OBST (2) Diverticulitis large intestine Code(s): K57.32 - DVTRCLI OF LG INT W/O PERFORATION OR ABSCESS W/O BLEEDING (3) Abdominal pain, left lower quadrant Code(s): R10.32 - LEFT LOWER QUADRANT PAIN (4) Chronic constipation Code(s): K59.09 - OTHER CONSTIPATION (5) Osteoarthritis Code(s): M19.90 - UNSPECIFIED OSTEOARTHRITIS, UNSPECIFIED SITE (6) Hypercholesteremia Code(s): E78.00 - PURE HYPERCHOLESTEROLEMIA, UNSPECIFIED (7) Obesity (BMI 30.0-34.9) Code(s): E66.9 - OBESITY, UNSPECIFIED (8) Pre-diabetes Code(s): R73.03 - PREDIABETES plan continue mgmt as per surgery ng tube suction hydration continue abx surgery following
[2017-08-18] MEDS: PIPERACILLIN/TAZOB 3.375 GM 3.375 GM in DEXTROSE 5%-WATER - 50 ML IVPB SCH ×2 (02:00→09:27)
[2017-08-18 06:12] VITALS: BP 131/90; PULSE 84; TEMP 98.4
--- NOTE | 2017-08-18 08:38 | PN ---
Progress Note, Physician Chief Complaint: SBO History of Present Illness: 67yo female PMH obesity, pre-diabetes, thrombocytosis, hypercholeterolemia, chronic constipation, diverticulitis had 3 hospitalizations prior to surgery, s/ p sigmoidcolectomy, multiple SBOs presented to emergency department with lower abdominal pain and vomiting reporting that she has a bowel obstruction. She is having BM and flatus. tolerated full liquids with some return of lower abdominal pain. She was emotional - upset that she was not discharged. - Current Medication List Current Medications: Active Medications Albuterol Sulfate (Ventolin 0.083% Nebulizer Soln -) 1 amp NEB Q4H PRN PRN Reason: SHORT OF BREATH/WHEEZING Docusate Sodium (Colace -) 100 mg PO Q8H PRN PRN Reason: CONSTIPATION Heparin Sodium (Porcine) (Heparin -) 5,000 unit SQ BID [facility] Last Admin: 08/17/17 22:21 Dose: 5,000 unit Piperacillin Sod/Tazobactam (Sod 3.375 gm/ Dextrose) 50 mls @ 100 mls/hr IVPB Q8H-IV [facility] Last Admin: 08/18/17 02:00 Dose: 100 mls/hr Famotidine/Sodium Chloride (Pepcid 20 Mg Premixed Ivpb -) 20 mg in 50 mls @ 100 mls/hr IVPB BID [facility] Last Admin: 08/17/17 22:21 Dose: 100 mls/hr Potassium Chloride 20 meq/ (Sodium Chloride) 1,010 mls @ 100 mls/hr IVPB Q10H [facility] Last Admin: 08/17/17 22:21 Dose: Not Given Morphine Sulfate (Morphine Injection -) 2 mg IVPUSH Q4H PRN PRN Reason: PAIN LEVEL 6-10 Last Admin: 08/17/17 21:00 Dose: 2 mg Ondansetron HCl (Zofran Injection) 4 mg IVPUSH Q6H PRN PRN Reason: NAUSEA Psyllium Hydrophilic Mucilloid (Metamucil (Sugar-Free) -) 5.85 gm PO DAILY [facility] Last Admin: 08/17/17 18:22 Dose: Not Given - Objective Vital Signs: Vital Signs Temperature 98.4 F 08/18/17 06:00 Pulse Rate 84 08/18/17 06:00 Respiratory Rate 18 08/18/17 06:00 Blood Pressure 131/90 08/18/17 06:00 O2 Sat by Pulse Oximetry (%) 97 08/18/17 06:00 Vital Signs Period Temp Pulse Resp BP Sys/Sterling Pulse Ox Last 24 Hr 97.8 F-98.4 F 74-84 - 131-138/55-90 97-98 Constitutional: Yes: Well Nourished, No Distress, Calm Eyes: Yes: Conjunctiva Clear, EOM Intact HENT: Yes: Atraumatic, Normocephalic Neck: Yes: Supple, Trachea Midline Cardiovascular: Yes: Regular Rate and Rhythm, S1, S2. No: Murmur Respiratory: Yes: Regular, CTA Bilaterally Gastrointestinal: Yes: Normal Bowel Sounds, Soft, Tenderness (tenderness to deep palpation of LLQ). No: Tenderness, Epigastrium, Tenderness, Rebound, Vomiting ...Rectal Exam: Yes: Deferred Genitourinary: No: CVA Tenderness - Left, CVA Tenderness - Right Musculoskeletal: No: Muscle Pain, Muscle Weakness Extremities: No: Cool, Cyanosis Edema: No Peripheral Pulses WNL: Yes Integumentary: No: Jaundice, Rash Neurological: Yes: Alert, Oriented Psychiatric: Yes: Alert, Oriented Labs: CBC, BMP 08/16/17 06:50 08/16/17 06:50 Problem List - Problems (1) Small intestine obstruction Assessment/Plan: 67yo female MMP with resolving SBO maybe element of acute diverticulitis (wbc 15.2 -->11.9), Lactic acid (2.5 -->1.4), NGT 400ml overnight. now passing flatus, distension improved. She does not require emergency surgery but should be monitored. Large BM reported after nulytely NGT discontinued. Diet was advanced. Abdominal pain is marginal, minimally tender on exam, likely related to an element of diverticulitis. IV antibiotics empiric repeat labs Regular diet antiemetic Home Bowel Regimen Fiber supplement daily Miralax 17g PO daily Colace 100mg PO TID can be discharged when tolerating diet if she insists Code(s): K56.609 - UNSP INTESTNL OBST, UNSP TO PARTIAL VERSUS COMPLETE OBST (2) Osteoarthritis Code(s): M19.90 - UNSPECIFIED OSTEOARTHRITIS, UNSPECIFIED SITE (3) Diverticulitis large intestine Code(s): K57.32 - DVTRCLI OF LG INT W/O PERFORATION OR ABSCESS W/O BLEEDING (4) Chronic constipation Code(s): K59.09 - OTHER CONSTIPATION (5) Hypercholesteremia Code(s): E78.00 - PURE HYPERCHOLESTEROLEMIA, UNSPECIFIED (6) Abdominal pain, left lower quadrant Code(s): R10.32 - LEFT LOWER QUADRANT PAIN (7) Obesity (BMI 30.0-34.9) Code(s): E66.9 - OBESITY, UNSPECIFIED (8) Pre-diabetes Code(s): R73.03 - PREDIABETES
[2017-08-18] MEDS: FAMOTIDINE 20 MG/50 ML IVPB 20 MG/50 ML MG IVPB SCH (09:27)
[2017-08-18] MEDS: PSYLLIUM 5.85 GM PACKET PO SCH (09:28)
[2017-08-18] MEDS: HEPARIN NA (PORCINE) 5,000 UNITS/ML 1ML VIAL SQ SCH (09:28)
[2017-08-18 10:27] LABS: BASO % 0.7 % (0-2.0); EOS % 3.7 % (0-4.5); HEMOGLOBIN 13.3 GM/dl (10.7-15.3); LYMPH % 25.4 % (8-40); MCH 30.9 pg (25.7-33.7); MCHC 34.2 g/dl (32.0-36.0); MEAN CELL VOLUME 90.4 fl (80-96); MEAN PLT VOLUME 7.9 fl (7.5-11.1); MONO % 4.9 % (3.8-10.2); NEUT % 65.3 % (42.8-82.8); PLATELET COUNT 474 K/MM3 (134-434); RBC 4.31 M/mm3 (3.60-5.2); RDW 12.7 % (11.6-15.6); WHITE BLOOD COUNT 7.8 K/mm3 (4.0-10.8)
[2017-08-18 10:39] LABS: ALBUMIN 3.6 g/dl (3.5-5.0); ALK PHOS 79 U/L (32-92); ANION GAP 5 (8-16); BILIRUBIN,TOTAL 0.7 mg/dl (0.2-1.0); BLOOD UREA NITROGEN 9 mg/dl (7-18); CALCIUM 8.6 mg/dl (8.4-10.2); CHLORIDE 103 mmol/L (98-107); CO2 26 mmol/L (22-28); CREATININE 0.8 mg/dl (0.6-1.3); GLUCOSE,RANDOM 164 mg/dl (74-106); MAGNESIUM 1.9 mg/dL (1.8-2.4); PHOSPHOROUS 2.7 mg/dl (2.5-4.6); POTASSIUM 3.8 mmol/L (3.5-5.1); SGOT/AST 25 U/L (10-42); SGPT/ALT 27 U/L (10-40); SODIUM 134 mmol/L (136-145); TOT PROT 6.4 g/dl (6.4-8.3)
--- NOTE | 2017-08-18 10:59 | DS ---
Physical Exam: SUBJECTIVE: Patient seen and examined, patient is tolerating regular diet, ambulatory throughout nursing station, denies any abdominal pain, patient is requesting discharge home. OBJECTIVE:Patient is a 67 year old female with a significant past medical history of asthma, SBO, IBS, diverticulitis (s/p colon resection). She presents to the ED with complaints of abdominal x 1 day. The patient reports her pain began on the evening of 08/14 after a bowel movement. She states that her bowel movements are usually are normal, and regular. Yesterday she reports having nausea, vomiting (nonbloody/nonbilious). Patient has had small bowel obstructions in the past and states that the pain she is having is similar to when she had SBO in the past. She denies any associated fever, headache, dizziness, lightheadedness, or joint aches. She denies any dysuria, hematuria, frequency, or urgency. She denies any chest pain, shortness of breath, diaphoresis, or palpitations. She denies any recent travel or sick contacts. On exam, she denies abdominal pain but is having nausea. She states that she is now passing gas. ER course was notable for: (1) NGT with 200cc light brown drainage (2) lactic acidosis 2.5 (3) abd xray shows no sign of free air. Large air fluid level in the stomach. There is a large fibroid calcification in the pelvis. There is some retained stool in the colon with some air distestend loops of small bowel seen centrally. There are some scattered air fluid levels. Organomegaly is not seen. Upper abdominal calcificatins of significance or not visualized. Vital Signs Period Temp Pulse Resp BP Sys/[place] Pulse Ox Last 24 Hr 97.8 F-98.4 F 74-84 18-18 131-138/55-90 97-98 PHYSICAL EXAM GENERAL: The patient is awake, alert, and fully oriented, in no acute distress. HEAD: Normal with no signs of trauma. EYES: PERRL, extraocular movements intact, sclera anicteric, conjunctiva clear. ENT: Ears normal, nares patent, oropharynx clear without exudates, moist mucous membranes. NECK: Trachea midline, full range of motion, supple. LUNGS: Breath sounds equal, clear to auscultation bilaterally, no wheezes, no crackles, no accessory muscle use. HEART: Regular rate and rhythm, S1, S2 without murmur, rub or gallop. ABDOMEN: Soft, nontender, nondistended, normoactive bowel sounds, no guarding, no rebound, no hepatosplenomegaly, no masses. EXTREMITIES: 2+ pulses, warm, well-perfused, no edema. NEUROLOGICAL: Cranial nerves II through XII grossly intact. Normal speech, gait not observed. PSYCH: Normal mood, normal affect. SKIN: Warm, dry, normal turgor, no rashes or lesions noted. LABS Laboratory Results - last 24 hr 08/17/17 08/18/17 08/18/17 13:20 09:12 09:12 WBC 7.8 D RBC 4.31 Hgb 13.3 Hct 39.0 MCV 90.4 MCH 30.9 MCHC 34.2 RDW 12.7 Plt Count 474 H MPV 7.9 Neutrophils % 65.3 Lymphocytes % 25.4 Monocytes % 4.9 Eosinophils % 3.7 Basophils % 0.7 Sodium 134 L Potassium 3.8 Chloride 103 Carbon Dioxide 26 Anion Gap 5 L BUN 9 Creatinine 0.8 D Creat Clearance w eGFR > 60 Random Glucose 164 H D Calcium 8.6 Phosphorus 2.7 Magnesium 1.9 Total Bilirubin 0.7 D AST 25 ALT 27 Alkaline Phosphatase 79 Total Protein 6.4 Albumin 3.6 Urine Color Yellow Urine Appearance Clear Urine pH 8.5 H Ur Specific [place] 1.015 Urine Protein Negative Urine Glucose (UA) Negative Urine Ketones Negative Urine Blood Negative Urine Nitrite Negative Urine Bilirubin Negative Urine Urobilinogen 0.2 Ur Leukocyte Esterase Negative IMAGING CT scan: partial bowel obstruction pattern with transition point in LLQ anteriorly. dilated contrast filled stomach Abdominal xray: no signs of SBO, contrast passage into colon. fibroid calcification. NGT in place ABD XRAY: no signs of small bowel obstruction, ngt in stomach HOSPITAL COURSE: patient was admitted from the emergency department for a small bowel obstruction. she was placed on bowel rest, ngt was placed. serial abdominal exams performed and repeat abd xray resulted as resolution of sbo. large amounts of stool was noted in colon, patient was given golyeltly on hospital day 1. patient passed large amounts of stool and ngt was removed. She tolerated a clear liquid diet and was advanced to soft regular diet. Patient tolerated soft diet and was placed on a bowel regimen. Surgery, Dr Ospina was consulted and followed patient throughout admission PLAN - strict outpatient follow up for colonscopy with GI referra was given to patient in hand - continue colace and miralax daily - return precautions reviewed Date of Admission:08/16/17 Date of Discharge: 08/18/17 Minutes to complete discharge: 45 Discharge Summary Reason For Visit: SMALL BOWEL OBSTRUCTION Current Active Problems Abdominal pain, left lower quadrant (Acute) Chronic constipation (Acute) Diverticulitis large intestine (Acute) Hypercholesteremia (Acute) Obesity (BMI 30.0-34.9) (Acute) Osteoarthritis (Acute) Pre-diabetes (Acute) Small intestine obstruction (Acute) Condition: Improved - Instructions Diet, Activity, Other Instructions: Follow-up: Call Dr. Ospina' office at [phone] with any concerns Clinic is every Thursday at [facility]. Clinic is held in the Diagnostic Center on the first floor of [facility]. Call the office if you have: * increasing pain not responsive to pain medication * inability to pass stool or gas Also, see your primary medical doctor within 1-2 weeks. Disposition: HOME - Home Medications Comprehensive Discharge Medication List: Ambulatory Orders Non-Formulary 9 grams PO BID 02/18/15 Fluticasone/Vilanterol [Breo Ellipta 100-25 Mcg INH] 1 each IH DAILY 08/15/17 Loratadine [Claritin] 10 mg PO DAILY 08/15/17 Aspirin [ASA -] PO BID 08/16/17 This patient is new to me today: No Emergency Visit: Yes ED Registration Date: 08/16/17 Care time: The patient presented to the Emergency Department on the above date and was hospitalized for further evaluation of their emergent condition. Critical Care patient: No - Discharge Referral Referred to [facility] No
--- NOTE | 2017-08-19 13:13 | EKG ---
Test Reason : Blood Pressure : / mmHG Vent. Rate : 087 BPM Atrial Rate : 087 BPM P-R Int : 130 ms QRS Dur : 070 ms QT Int : 364 ms P-R-T Axes : 070 022 035 degrees QTc Int : 438 ms NORMAL SINUS RHYTHM NORMAL ECG WHEN COMPARED WITH ECG OF 22-AUG-2016 13:12, NO SIGNIFICANT CHANGE WAS FOUND Confirmed by PATRICK WEST MD ([id number]) on 08/19/2017 1:13:10 PM Referred By: MD NAGY Confirmed By:PATRICK WEST MD
== END 2017-08-18 14:20 | disposition home or self-care (01) | DRG 872 ==
LOC: FER 19:34 → FM/S 08-16 02:09 → MERGE 08-16 02:09
PROVIDERS: ADMIT Internal Medicine; ATTEND Nurse Practitioner Family
PROC: 0D9670Z Drainage of Stomach with Drainage Device, Via Natural or Artificial Opening (ICD-10-PCS; principal; 2017-08-16)
DX: A41.9 Sepsis, unspecified organism (principal); K56.699 Other intestinal obstruction unspecified as to partial versus complete obstruction; K57.32 Diverticulitis of large intestine without perforation or abscess without bleeding; E87.2 Acidosis; D47.3 Essential (hemorrhagic) thrombocythemia; R73.03 Prediabetes; K59.09 Other constipation; E78.00 Pure hypercholesterolemia, unspecified; M54.5 Low back pain; E66.8 Other obesity; Z68.31 Body mass index [BMI] 31.0-31.9, adult; M19.90 Unspecified osteoarthritis, unspecified site; J45.909 Unspecified asthma, uncomplicated
CPT/HCPCS: 36415; 71046-TC-FY; 74019-TC-FY; 74177-TC; 80053; 81003; 82962; 83605; 83690; 83735; 84100; 85025; 93005; 93010; 94010; 99283-25; J1644

== ENCOUNTER 2018-08-15 19:26 | Inpatient (IN) | payer OTHER ==
--- NOTE | 2018-08-15 19:48 | PDOC ---
History of Present Illness - General History Source: Patient Exam Limitations: No Limitations - History of Present Illness Initial Comments: 08/15/18 20:00 The patient is a 68 year old female with a significant past medical history of asthma, migraines, diverticulitis (s/p colon resection in 2010) and IBS who presents to the ED with abdominal pain and vomiting since earlier today. Patient reports multiple episodes of soft stool yesterday. She states she has irregular bowel movements at baseline where she alternates between diarrhea and constipation. Patient reports a sudden onset of intermittent bilateral upper abdominal pain around 4:00pm earlier today. She states the pain was sharp and a 12/10 in severity. Patient took lactulose with no relief. She reports two episodes of non blood vomiting, 5 minutes apart, and states she vomited food and lactulose around 6:30 pm. Patient states her abdominal pain was a 5/10 after vomiting. Patient also reports one episode of small soft stool earlier today. Patient reports she had 3 episodes of diverticulitis flare ups in the past, prior to her colon resection in 2010. Since the surgery, patient had 3 bowel obstructions and needed a NG tube (last episode was last year). Denies fever or chills. Denies sore throat or headache. Denies ear pain. Denies shortness of breath. Denies change in urinary output. Denies any other symptoms. <Samantha Murdock - Last Filed: 08/15/18 20:19> <Coy Sorensen - Last Filed: 08/15/18 23:10> - General Chief Complaint: Pain Stated Complaint: ABD PAIN/N/V Time Seen by Provider: 08/15/18 19:30 Past History <Samantha Murdock - Last Filed: 08/15/18 20:19> - Past Medical History Anemia: No Asthma: Yes Cancer: No Cardiac Disorders: No CVA: No COPD: No CHF: No DVT: No Dementia: No Diabetes: No Dialysis: No GI Disorders: Yes (IBS,OBSTRUCTION,DIVERTIC) Disorders: No HTN: No Hypercholesterolemia: Yes Kidney Stones: No Liver Disease: (elevated liver enzyme) Seizures: No Thyroid Disease: No - Surgical History Abdominal Surgery: Yes (resection for diverticulitis) Appendectomy: No Cardiac Surgery: No Cholecystectomy: No Lung Surgery: No Neurologic Surgery: No Orthopedic Surgery: No - Suicide/Smoking/Psychosocial Hx Smoking Status: No Smoking History: Never smoked Have you smoked in the past 12 months: No Number of Cigarettes Smoked Daily: 0 Hx Alcohol Use: No Drug/Substance Use Hx: No Substance Use Type: None Hx Substance Use Treatment: No <Coy Sorensen - Last Filed: 08/15/18 23:10> - Past Medical History Allergies/Adverse Reactions: Allergies Allergy/AdvReac Type Severity Reaction Status Date / Time lansoprazole [From Prevacid] Allergy Severe Swelling Verified 02/18/15 08:06 metronidazole [From Flagyl] AdvReac Intermediate Vomiting Verified 02/18/15 08: 06 Home Medications: Ambulatory Orders Fluticasone/Vilanterol [Breo Ellipta 100-25 Mcg INH] 1 each IH DAILY 08/15/18 Polyethylene Glycol 3350 [Miralax (For Daily Use) -] 17 gm PO DAILY 08/15/18 Review of Systems - Review of Systems Able to Perform ROS?: Yes Comments:: 08/15/18 20:01 CONSTITUTIONAL: Absent: Fever, Chills, Diaphoresis, Generalized Weakness, Malaise, Loss of Appetite HEENT: Absent: Rhinorrhea, Nasal Congestion, Throat Pain, Throat Swelling, Difficulty Swallowing, Mouth Swelling, Ear Pain, Eye Pain, Visual Changes CARDIOVASCULAR: Absent: Chest Pain, Syncope, Palpitations, Irregular Heart Rate, Lightheadedness , Peripheral Edema RESPIRATORY: Absent: Cough, Shortness of Breath, SOB with Exertion, Orthopnea, Wheezing, Stridor, Hemoptysis GASTROINTESTINAL: + abdominal pain, vomiting, loose stool, abdominal distension Absent: Constipation, Melena, Hematochezia GENITOURINARY: Absent: Dysuria, Frequency, Urgency, Hesitancy, Flank Pain, Genital Pain MUSCULOSKELETAL: Absent: Myalgia, Arthralgia, Joint Swelling, Back pain, Neck Pain SKIN: Absent: Rash, Itching, PalloR HEMEATOLOGIC/IMMUNOLOGIC: Absent: Easy Bleeding, Easy Bruising, Lymphadenopathy, Frequent infections ENDOCRINE: Absent: Unexplained Weight Gain, Unexplained Weight Loss, Heat Intolerance, Cold Intolerance NEUROLOGIC: Absent: Headache, Focal Weakness, Paresthesias, Vertigo, Lightheadedness, Unsteady Gait, Seizure, Mental Status Changes, Incontinence PSYCHIATRIC: Absent: Anxiety, Depression All Other Systems: Reviewed and Negative <Samantha Murdock - Last Filed: 08/15/18 20:19> *Physical Exam - Vital Signs Last Vital Signs Temp Pulse Resp BP Pulse Ox 98.1 F 95 H 18 146/84 95 08/15/18 19:29 08/15/18 19:29 08/15/18 19:29 08/15/18 19:29 08/15/18 19:29 - Physical Exam Comments: 08/15/18 20:01 GENERAL: The patient is awake, alert, and fully oriented, in no acute distress. HEAD: Normal with no signs of trauma. EYES: Pupils equal, round and reactive to light, extraocular movements intact, sclera anicteric, conjunctiva clear. ENT: Ears normal, nares patent, oropharynx clear without exudates. Moist mucous membranes. NECK: Normal range of motion, supple without lymphadenopathy, JVD, or masses. LUNGS: Breath sounds equal, clear to auscultation bilaterally. No wheezes, and no crackles. HEART: Regular rate and rhythm, normal S1 and S2 without murmur, rub or gallop. ABDOMEN: + Softly distended. Decreased bowel sounds. Mild diffuse upper abdominal tenderness. No guarding or rebound. No masses. No flank tenderness. No CVA tenderness. EXTREMITIES: Normal range of motion, no edema. No clubbing or cyanosis. No cords , erythema, or tenderness. NEUROLOGICAL: Cranial nerves II through XII grossly intact. Normal speech, normal gait. PSYCH: Normal mood, normal affect. SKIN: Warm, Dry, normal turgor, no rashes or lesions noted. <Samantha Murdock - Last Filed: 08/15/18 20:19> - Vital Signs Last Vital Signs Temp Pulse Resp BP Pulse Ox 98.1 F 95 H 18 146/84 95 08/15/18 19:29 08/15/18 19:29 08/15/18 19:29 08/15/18 19:29 08/15/18 19:29 <Coy Sorensen - Last Filed: 08/15/18 23:10> Moderate Sedation - Procedure Monitoring Vital Signs: Procedure Monitoring Vital Signs Temperature 98.1 F 08/15/18 19:29 Pulse Rate 95 H 08/15/18 19:29 Respiratory Rate 18 08/15/18 19:29 Blood Pressure 146/84 08/15/18 19:29 O2 Sat by Pulse Oximetry (%) 95 08/15/18 19:29 <Samantha Murdock - Last Filed: 08/15/18 20:19> - Procedure Monitoring Vital Signs: Procedure Monitoring Vital Signs Temperature 98.1 F 08/15/18 19:29 Pulse Rate 95 H 08/15/18 19:29 Respiratory Rate 18 08/15/18 19:29 Blood Pressure 146/84 08/15/18 19:29 O2 Sat by Pulse Oximetry (%) 95 08/15/18 19:29 <Coy Sorensen - Last Filed: 08/15/18 23:10> Heart Score/ECG Review - ECG Impressions Comment:: 08/15/18 20:09 Twelve-lead EKG shows normal sinus rhythm at a rate of 91 bpm. The axis is normal. The intervals are normal. There are no acute ST elevations or depressions. Impression: Normal 12-lead EKG. <Coy Sorensen - Last Filed: 08/15/18 23:10> ED Treatment Course - LABORATORY CBC & Chemistry Diagram: 08/15/18 19:49 08/15/18 19:49 - Medications Given in the ED: ED Medications Discontinued Medications Generic Name Dose Route Start Last Admin Trade Name Freq PRN Reason Stop Dose Admin Hydromorphone HCl 0.5 mg 08/15/18 19:56 08/15/18 19:59 Dilaudid Injection - IVPUSH 08/15/18 19:57 0.5 mg ONCE ONE Administration Ondansetron HCl 4 mg 08/15/18 19:51 08/15/18 19:55 Zofran Injection IVPB 08/15/18 19:52 4 mg ONCE ONE Administration Sodium Chloride 1,000 ml 08/15/18 19:50 08/15/18 19:55 Normal Saline - IV 08/15/18 19:51 1,000 ml ONCE ONE Administration <Samantha Murdock - Last Filed: 08/15/18 20:19> - LABORATORY CBC & Chemistry Diagram: 08/15/18 19:49 08/15/18 19:49 <Coy Sorensen - Last Filed: 08/15/18 23:10> Medical Decision Making - Medical Decision Making 08/15/18 23:06 Patient is a 68-year-old female with a history of diverticulitis with colon resection as well as adhesions with small bowel obstruction. She was doing well until today when she developed symptoms of abdominal distention and pain across the upper abdomen both right and left upper abdomen. The pain is waxing and waning. She felt better after vomiting 2. She continues to have upper abdominal pain. There is no hematemesis, no coffee-ground emesis, and no blood in the stool. Yesterday she had some loose diarrhea several times, and today she had minimal soft stool output. On examination, she has mild distention with mild tenderness across the upper abdomen. Bowel sounds are decreased. There is no guarding or rebound tenderness. Laboratory studies are notable for an elevated white blood cell count and increased neutrophils. CT scan of the abdomen and pelvis with IV contrast was ordered. At change of shift at 11 PM, CT scan is pending. Patient endorsed to Dr. Julia Okeefe. Concerns for possible serious intra-abdominal pathology and/or infection were discussed with Dr. Okeefe. Further plans regarding antibiotics and admission are pending at this time. <Coy Sorensen - Last Filed: 08/15/18 23:10> *DC/Admit/Observation/Transfer - Attestations Scribe Attestion: 08/15/18 20:01 Documentation prepared by Samantha Murdock, acting as medical scheduler for Coy Sorensen MD <Samantha Murdock - Last Filed: 08/15/18 20:19> - Attestations Physician Attestion: 08/15/18 23:09 The scribe's documentation has been prepared under my direction and personally reviewed by me in its entirety. I have confirmed that the note above accurately reflects all work, treatment, procedures, and medical decision- making performed by me. <Coy Sorensen - Last Filed: 08/15/18 23:10> Diagnosis at time of Disposition: Abdominal pain Qualifiers: Abdominal location: upper abdomen, unspecified Qualified Code(s): R10.10 - Upper abdominal pain, unspecified - Patient Instructions - Post Discharge Activity
[2018-08-15] MEDS ORDERED: SODIUM CHLORIDE 0.9% 500 ML INFUS.BAG IV ONE (19:50)
[2018-08-15] MEDS ORDERED: ONDANSETRON 4 MG/2 ML VIAL ONE (19:51)
[2018-08-15] MEDS ORDERED: ONDANSETRON 4 MG/2 ML VIAL IVPB ONE (19:51)
[2018-08-15] MEDS ORDERED: HYDROmorphone HCL CARPU-JECT 1 MG/1 ML DISP.SYRIN ONE (19:56)
[2018-08-15] MEDS ORDERED: HYDROmorphone HCL CARPU-JECT 1 MG/1 ML DISP.SYRIN IVPUSH ONE ×2 (19:56→21:15)
[2018-08-15 20:30] LABS: BASO % 0.4 % (0-2.0); EOS % 0.6 % (0-4.5); HEMATOCRIT 43.6 % (32.4-45.2); HEMOGLOBIN 14.4 GM/dl (10.7-15.3); LYMPH % 11.7 % (8-40); MCH 30.3 pg (25.7-33.7); MEAN CELL VOLUME 91.9 fl (80-96); MEAN PLT VOLUME 8.2 fl (7.5-11.1); MONO % 3.3 % (3.8-10.2); PLATELET COUNT 524 K/MM3 (134-434); RBC 4.75 M/mm3 (3.60-5.2); RDW 13.1 % (11.6-15.6); WHITE BLOOD COUNT 15.6 K/mm3 (4.0-10.8)
[2018-08-15 20:38] LABS: ALBUMIN 4.2 g/dl (3.4-5.0); ALK PHOS 116 U/L (45-117); ANION GAP 12 MMOL/L (8-16); BILIRUBIN,TOTAL 0.4 mg/dl (0.2-1); BLOOD UREA NITROGEN 16 mg/dl (7-18); CALCIUM 9.6 mg/dl (8.5-10); CHLORIDE 96 mmol/L (98-107); CO2 24 mmol/L (21-32); CREATININE 0.7 mg/dl (0.55-1.3); GLUCOSE,RANDOM 136 mg/dl (74-106); SGOT/AST 27 U/L (15-37); SGPT/ALT 32 U/L (13-61); SODIUM 132 mmol/L (136-145); TOT PROT 7.5 g/dl (6.4-8.2)
[2018-08-15 21:01] LABS: LIPASE 157 U/L (73-393)
--- NOTE | 2018-08-16 00:34 | PDOC ---
*Physical Exam - Vital Signs Last Vital Signs Temp Pulse Resp BP Pulse Ox 98.1 F 95 H 18 146/84 95 08/15/18 19:29 08/15/18 19:29 08/15/18 19:29 08/15/18 19:29 08/15/18 19:29 ED Treatment Course - LABORATORY CBC & Chemistry Diagram: 08/15/18 19:49 08/15/18 19:49 - ADDITIONAL ORDERS Additional order review: Laboratory Results 08/15/18 19:49 Sodium 132 L Potassium 4.0 Chloride 96 L Carbon Dioxide 24 Anion Gap 12 BUN 16 Creatinine 0.7 Creat Clearance w eGFR > 60 Random Glucose 136 H Calcium 9.6 Total Bilirubin 0.4 AST 27 ALT 32 Alkaline Phosphatase 116 Total Protein 7.5 Albumin 4.2 Lipase 157 08/15/18 19:49 RBC 4.75 MCV 91.9 MCHC 33.0 RDW 13.1 MPV 8.2 Neutrophils % 84.0 H Lymphocytes % 11.7 Monocytes % 3.3 L Eosinophils % 0.6 Basophils % 0.4 - Medications Given in the ED: ED Medications Discontinued Medications Generic Name Dose Route Start Last Admin Trade Name Freq PRN Reason Stop Dose Admin Hydromorphone HCl 0.5 mg 08/15/18 19:56 08/15/18 19:59 Dilaudid Injection - IVPUSH 08/15/18 19:57 0.5 mg ONCE ONE Administration Hydromorphone HCl 0.5 mg 08/15/18 21:15 08/15/18 21:18 Dilaudid Injection - IVPUSH 08/15/18 21:16 0.5 mg ONCE ONE Administration Ondansetron HCl 4 mg 08/15/18 19:51 08/15/18 19:55 Zofran Injection IVPB 08/15/18 19:52 4 mg ONCE ONE Administration Sodium Chloride 1,000 ml 08/15/18 19:50 08/15/18 19:55 Normal Saline - IV 08/15/18 19:51 1,000 ml ONCE ONE Administration Medical Decision Making - Medical Decision Making 08/16/18 00:28 Care of this patient received from Dr. Sorensen. CT of abdomen and pelvis with IV contrast performed. Preliminary report from Imaging investor relations coordinator: Minimally dilated small bowel left upper and left lower quadrants with decompressed distal small bowel consistent with earlier partial small bowel obstruction. No other abnormality seen on study. Since patient continues to have abdominal pain and distention, admission required for NPO/IV hydration/surgical consultation. Patient's PMD is Dr. Ernie Montejo. [place] [facility] service to be contacted 08/16/18 00:[address] Aquino. Patient to be admitted in observation status , service. *DC/Admit/Observation/Transfer Diagnosis at time of Disposition: Partial small bowel obstruction Abdominal pain Qualifiers: Abdominal location: upper abdomen, unspecified Qualified Code(s): R10.10 - Upper abdominal pain, unspecified - Discharge Dispostion Decision to Admit order: Yes - Referrals Referrals: Rakan Montejo MD [Primary Care Provider] - - Patient Instructions - Post Discharge Activity
[2018-08-16 01:45] VITALS: BMI 34.2
[2018-08-16] MEDS ORDERED: ALBUTEROL SO4 0.083% IH SOL 2.5 MG/3 ML VIAL.NEB. NEB PRN (03:12)
[2018-08-16 07:50] LABS: ANION GAP 7 MMOL/L (8-16); BLOOD UREA NITROGEN 9 mg/dl (7-18); CALCIUM 8.6 mg/dl (8.5-10); CHLORIDE 104 mmol/L (98-107); CO2 25 mmol/L (21-32); CREATININE 0.7 mg/dl (0.55-1.3); GLUCOSE,RANDOM 125 mg/dl (74-106); MAGNESIUM 1.9 mg/dL (1.8-2.4); PHOSPHOROUS 3.2 mg/dl (2.5-4.9); SODIUM 136 mmol/L (136-145)
[2018-08-16] MEDS: SODIUM CHLORIDE 1,000 ML IV SCH (08:00)
[2018-08-16 08:15] LABS: BASO % 0.8 % (0-2.0); EOS % 2.1 % (0-4.5); HEMATOCRIT 39.1 % (32.4-45.2); MCHC 33.2 g/dl (32.0-36.0); MEAN CELL VOLUME 93.5 fl (80-96); MEAN PLT VOLUME 8.2 fl (7.5-11.1); MONO % 5.4 % (3.8-10.2); NEUT % 67.7 % (42.8-82.8); PLATELET COUNT 469 K/MM3 (134-434); RBC 4.19 M/mm3 (3.60-5.2); RDW 13.2 % (11.6-15.6); WHITE BLOOD COUNT 11.1 K/mm3 (4.0-10.8)
--- NOTE | 2018-08-16 09:29 | HP ---
CHIEF COMPLAINT: Abdominal pain PCP: Dr. Rakan Montejo HISTORY OF PRESENT ILLNESS: 68 year-old female with a PMH significant for IBS, and diverticulitis s/p colon resection (2010) with three subsequent SBO occurrences. The patient is a 68 year old female with a significant past medical history of asthma, migraines, diverticulitis (s/p colon resection in 2010) and IBS who presents to the ED with abdominal pain and vomiting since earlier today. Patient reports multiple episodes of soft stool yesterday. She states she has irregular bowel movements at baseline where she alternates between diarrhea and constipation. Patient reports a sudden onset of intermittent bilateral upper abdominal pain around 4:00pm earlier today. She states the pain was sharp and a 12/10 in severity. Patient took lactulose with no relief. She reports two episodes of non blood vomiting, 5 minutes apart, and states she vomited food and lactulose around 6:30 pm. Patient states her abdominal pain was a 5/10 after vomiting. Patient also reports one episode of small soft stool earlier today. Patient reports she had 3 episodes of diverticulitis flare ups in the past, prior to her colon resection in 2010. Since the surgery, patient had 3 bowel obstructions and needed a NG tube (last episode was last year). Denies fever or chills. Denies sore throat or headache. Denies ear pain. Denies shortness of breath. Denies change in urinary output. Denies any other symptoms. ER course was notable for: (1) WBC 15.6k (2) (3) Recent Travel: No PAST MEDICAL HISTORY: Asthma Migraines Diverticulitis Recurrent SBOs PAST SURGICAL HISTORY: Colon resection 2010 Social History: Smoking: Alcohol: Drugs: Family History: Allergies lansoprazole [From Prevacid] Allergy (Severe, Verified 02/18/15 08:06) Swelling metronidazole [From Flagyl] Adverse Reaction (Intermediate, Verified 02/18/15 08 :06) Vomiting HOME MEDICATIONS: Home Medications Medication Instructions Recorded Fluticasone/Vilanterol [Breo 1 each IH DAILY 08/15/18 Ellipta 100-25 Mcg INH] Polyethylene Glycol 3350 [Miralax 17 gm PO DAILY 08/15/18 (For Daily Use) -] Albuterol Sulfate [Proair Hfa] 8.5 gm IH PRN PRN 08/16/18 Loratadine 10 mg PO DAILY 08/16/18 REVIEW OF SYSTEMS CONSTITUTIONAL: Absent: fever, chills, diaphoresis, generalized weakness, malaise, loss of appetite, weight change HEENT: Absent: rhinorrhea, nasal congestion, throat pain, throat swelling, difficulty swallowing, mouth swelling, ear pain, eye pain, visual changes CARDIOVASCULAR: Absent: chest pain, syncope, palpitations, irregular heart rate, lightheadedness , peripheral edema RESPIRATORY: Absent: cough, shortness of breath, dyspnea with exertion, orthopnea, wheezing, stridor, hemoptysis GASTROINTESTINAL: Absent: abdominal pain, abdominal distension, nausea, vomiting, diarrhea, constipation, melena, hematochezia GENITOURINARY: Absent: dysuria, frequency, urgency, hesitancy, hematuria, flank pain, genital pain MUSCULOSKELETAL: Absent: myalgia, arthralgia, joint swelling, back pain, neck pain SKIN: Absent: rash, itching, pallor HEMATOLOGIC/IMMUNOLOGIC: Absent: easy bleeding, easy bruising, lymphadenopathy, frequent infections ENDOCRINE: Absent: unexplained weight gain, unexplained weight loss, heat intolerance, cold intolerance NEUROLOGIC: Absent: headache, focal weakness or paresthesias, dizziness, unsteady gait, seizure, mental status changes, bladder or bowel incontinence PSYCHIATRIC: Absent: anxiety, depression, suicidal or homicidal ideation, hallucinations. PHYSICAL EXAMINATION Vital Signs - 24 hr 08/15/18 08/16/18 08/16/18 19:29 00:55 01:26 Temperature 98.1 F 98 F 98.3 F Pulse Rate 95 H 88 Pulse Rate [ 95 H Radial] Respiratory 18 18 18 Rate Blood Pressure 146/84 141/50 L Blood Pressure 140/70 [Arm] O2 Sat by Pulse 95 95 95 Oximetry (%) 08/16/18 08/16/18 03:15 07:15 Temperature 98.0 F Pulse Rate 88 77 Pulse Rate [ Radial] Respiratory 18 18 Rate Blood Pressure 104/48 L Blood Pressure [Arm] O2 Sat by Pulse 95 97 Oximetry (%) GENERAL: Awake, alert, and fully oriented, in no acute distress. HEAD: Normal with no signs of trauma. EYES: Pupils equal, round and reactive to light, extraocular movements intact, sclera anicteric, conjunctiva clear. No lid lag. EARS, NOSE, THROAT: Ears normal, nares patent, oropharynx clear without exudates. Moist mucous membranes. NECK: Normal range of motion, supple without lymphadenopathy, JVD, or masses. LUNGS: Breath sounds equal, clear to auscultation bilaterally. No wheezes, and no crackles. No accessory muscle use. HEART: Regular rate and rhythm, normal S1 and S2 without murmur, rub or gallop. ABDOMEN: Soft, not distended, diffusely tender, hypoactive bowel sounds UPPER EXTREMITIES: 2+ pulses, warm, well-perfused. No cyanosis. No clubbing. No peripheral edema. LOWER EXTREMITIES: 2+ pulses, warm, well-perfused. No calf tenderness. No peripheral edema. NEUROLOGICAL: Cranial nerves II-XII intact. Normal speech. Laboratory Results - last 24 hr 08/15/18 08/15/18 08/16/18 19:49 19:49 06:45 WBC 15.6 H 11.1 H RBC 4.75 4.19 Hgb 14.4 13.0 Hct 43.6 39.1 MCV 91.9 93.5 MCH 30.3 31.0 MCHC 33.0 33.2 RDW 13.1 13.2 Plt Count 524 H 469 H MPV 8.2 8.2 Absolute Neuts (auto) 13.1 7.5 Neutrophils % 84.0 H 67.7 Lymphocytes % 11.7 24.0 Monocytes % 3.3 L 5.4 Eosinophils % 0.6 2.1 Basophils % 0.4 0.8 Sodium 132 L Potassium 4.0 Chloride 96 L Carbon Dioxide 24 Anion Gap 12 BUN 16 Creatinine 0.7 Creat Clearance w eGFR > 60 Random Glucose 136 H Calcium 9.6 Phosphorus Magnesium Total Bilirubin 0.4 AST 27 ALT 32 Alkaline Phosphatase 116 Total Protein 7.5 Albumin 4.2 Lipase 157 08/16/18 06:45 WBC RBC Hgb Hct MCV MCH MCHC RDW Plt Count MPV Absolute Neuts (auto) Neutrophils % Lymphocytes % Monocytes % Eosinophils % Basophils % Sodium 136 Potassium 4.0 Chloride 104 Carbon Dioxide 25 Anion Gap 7 L BUN 9 Creatinine 0.7 Creat Clearance w eGFR > 60 Random Glucose 125 H Calcium 8.6 Phosphorus 3.2 Magnesium 1.9 Total Bilirubin AST ALT Alkaline Phosphatase Total Protein Albumin Lipase ASSESSMENT/PLAN Small bowel obstruction --08/15 CTAP: SBO, transition RLQ --no vomiting since coming to hospital, +nausea, pain improved, 2 soft BMs this morning --NPO --IV fluids --surgery consult pending --start empiric antibiotics --FUA pending
[2018-08-16] MEDS ORDERED: POLYETHYLENE GLYCOL 3350 119 GM BTL PO SCH (10:00)
[2018-08-16] MEDS ORDERED: LORATADINE 10 MG TABLET PO SCH (10:00)
--- NOTE | 2018-08-16 10:07 | EKG ---
Test Reason : Blood Pressure : / mmHG Vent. Rate : 091 BPM Atrial Rate : 091 BPM P-R Int : 130 ms QRS Dur : 072 ms QT Int : 352 ms P-R-T Axes : 058 029 037 degrees QTc Int : 432 ms NORMAL SINUS RHYTHM NORMAL ECG WHEN COMPARED WITH ECG OF 16-AUG-2017 01:59, NO SIGNIFICANT CHANGE WAS FOUND Confirmed by HARVEY PAVON MD ([id number]) on 08/16/2018 10:07:20 AM Referred By: Confirmed By:HARVEY PAVON MD
[2018-08-16] MEDS ORDERED: DEXTROSE 5%-WATER 100 ML IVPB ONE (10:27)
[2018-08-16] MEDS: CEFTRIAXONE 2 GM in DEXTROSE 5%-WATER 100 ML IVPB SCH (10:44)
[2018-08-16] MEDS: LORATADINE 10 MG TABLET PO SCH (10:44)
[2018-08-16 11:46] LABS: INR 1.07 (0.82-1.09)
[2018-08-16 11:53] LABS: URINE APPEARANCE Clear; URINE BILIRUBIN Negative (NEGATIVE); URINE COLOR Yellow; URINE GLUCOSE (UA) Negative (NEGATIVE); URINE KETONE Negative (NEGATIVE); URINE LEUK ESTERASE Negative (NEGATIVE); URINE NITRITE Negative (NEGATIVE); URINE PROTEIN Negative (NEGATIVE); URINE UROBILINOGEN 0.2 (0.2-1.0)
[2018-08-16] MEDS: ACETAMINOPHEN 1000 MG/100 ML VIAL (NON FORMULARY) IVPB PRN ×2 (12:14→19:46)
--- NOTE | 2018-08-16 12:24 | CONSULT ---
Consult Consult Specialty:: General Surgery Reason for Consultation:: SBO - History of Present Illness Chief Complaint: Abdominal pain and vomiting History of Present Illness: 68yo female patient PMH obesity, pre-diabetes, thrombocytosis, hypercholeterolemia, chronic constipation, diverticulitis had 4 hospitalizations prior to surgery, s/p one stage sigmoidcolectomy at [facility], s /p right knee partial arthoplasty at [facility], multiple SBOs presented to emergency department with lower abdominal pain and vomiting reporting that she has a bowel obstruction. Last admission was exactly 1 year ago to the day. She has had similar episodes (3 times) since 2013 after having an an elective laparoscopic hybrid sigmoid colectomy. She was treated them with NGT decompression and resolved without operation. This episode started with mid- epigastric pain yesterday. She has two episodes of the food that she ate. Jessica abdomen was distended and no flatus and she was reminded of previous episodes. She also took 30ml of lactulose. Now she has left upper and left lateral abdominal pain, rated 3/10, non radiating. CT scan showed a transition point in the right lower abdomen. NGT was refused in the ED. This morning she had a BM described as dark brown. Her last colonoscopy was in 2012. We were asked to assess. - History Source History Provided By: Patient, Medical Record Limitations to Obtaining History: No Limitations - Past Medical History Gastrointestinal: Yes: Constipation, Diverticulitis, Other (bowel obstruction ) ...: No Musculoskeletal: Yes: Chronic low back pain, Osteoarthritis - Past Surgical History Past Surgical History: Yes: Colectomy (elective laparoscopic hybrid sigmoidectomy ) - Alcohol/Substance Use Hx Alcohol Use: No History of Substance Use: reports: None - Smoking History Smoking history: Never smoked Have you smoked in the past 12 months: No Aproximately how many cigarettes per day: 0 - Social History History of Recent Travel: No Home Medications - Allergies Allergies/Adverse Reactions: Allergies Allergy/AdvReac Type Severity Reaction Status Date / Time lansoprazole [From Prevacid] Allergy Severe Swelling Verified 02/18/15 08:06 metronidazole [From Flagyl] AdvReac Intermediate Vomiting Verified 02/18/15 08: 06 - Home Medications Home Medications: Ambulatory Orders Fluticasone/Vilanterol [Breo Ellipta 100-25 Mcg INH] 1 each IH DAILY 08/15/18 Polyethylene Glycol 3350 [Miralax (For Daily Use) -] 17 gm PO DAILY 08/15/18 Albuterol Sulfate [Proair Hfa] 8.5 gm IH PRN PRN 08/16/18 Loratadine 10 mg PO DAILY 08/16/18 Family Disease History - Family Disease History Family Disease History: Other: Mother (Leukemia ) Review of Systems - Review of Systems Constitutional: denies: Chills, Fever Eyes: denies: Blind Spots, Recent Change in Vision HENT: denies: Difficult Swallowing, Throat Pain Cardiovascular: denies: Chest Pain, Palpitations Respiratory: denies: Cough, SOB Gastrointestinal: reports: Abdominal Pain, Bloating, Constipation. denies: Indigestion Genitourinary: denies: Discharge, Dysuria Breasts: reports: No Symptoms Reported. denies: Pain Integumentary: denies: Blister, Lesions, Lump Neurological: denies: Seizure, Syncope Endocrine: denies: Flushing, Increased Hunger, Intolerance to Cold, Intolerance to Heat, Unexplained Weight Gain, Unexplained Weight Loss Hematology/Lymphatic: denies: Easily Bruised, Excessive Bleeding Psychiatric: denies: Anxiety, Depression Physical Exam Vital Signs: Vital Signs Temperature 97.8 F 08/16/18 10:42 Pulse Rate 74 08/16/18 10:42 Respiratory Rate 18 08/16/18 10:42 Blood Pressure 125/56 L 08/16/18 10:42 O2 Sat by Pulse Oximetry (%) 95 08/16/18 10:42 Vital Signs Period Temp Pulse Resp BP Sys/Sterling Pulse Ox Last 24 Hr 97.8 F-98.3 F 72-95 18-18 104-146/40-84 95-97 Constitutional: Yes: No Distress, Calm, Obese Eyes: Yes: Conjunctiva Clear, EOM Intact HENT: Yes: Atraumatic, Normocephalic Neck: Yes: Supple, Trachea Midline Cardiovascular: Yes: Regular Rate and Rhythm, S1, S2 Respiratory: Yes: Regular, CTA Bilaterally Gastrointestinal: Yes: Normal Bowel Sounds, Soft, Abdomen, Obese. No: Ascites, Distention, Tenderness, Tenderness, Epigastrium, Tenderness, Rebound ...Rectal Exam: Yes: Deferred Renal/: No: CVA Tenderness - Left, CVA Tenderness - Right Musculoskeletal: No: Muscle Pain, Muscle Weakness Extremities: No: Cool, Cyanosis Edema: No Peripheral Pulses WNL: Yes Integumentary: No: Jaundice, Rash Wound/Incision: Yes: Clean/Dry, Other (well healed) Neurological: No: Alert, Oriented Psychiatric: No: Alert, Oriented Labs: CBC, BMP 08/16/18 06:45 08/16/18 06:45 Imaging - Results X-ray: Report Reviewed, Image Reviewed (non specific pattern) Cat Scan: Report Reviewed, Image Reviewed (SBO pattern anastomosis is intact, transition in RLQ) Problem List - Problems (1) Partial small bowel obstruction Assessment/Plan: 68 yo female MMP with recurrently symptomatic SBO, last colonscopy 2017, at [facility]. Favoring non-operative management for her. NPO and IVF hydration NGT if she start emesis Obtain colonoscopy report from [facility] GI doctor Serial Abdominal Xrays Serial exams will follow Thank you for the opportunity to participate in the care of this patient. Code(s): K56.69 - OTHER INTESTINAL OBSTRUCTION * DO NOT USE * (2) Abdominal pain, left lower quadrant Code(s): R10.32 - LEFT LOWER QUADRANT PAIN (3) Diverticulitis large intestine Code(s): K57.32 - DVTRCLI OF LG INT W/O PERFORATION OR ABSCESS W/O BLEEDING Qualifiers: Diverticulitis bleeding: without bleeding Diverticulitis complication: without perforation or abscess Qualified Code(s): K57.32 - Diverticulitis of large intestine without perforation or abscess without bleeding (4) Hypercholesteremia Code(s): E78.00 - PURE HYPERCHOLESTEROLEMIA, UNSPECIFIED (5) Obesity (BMI 30.0-34.9) Code(s): E66.9 - OBESITY, UNSPECIFIED (6) Pre-diabetes Code(s): R73.03 - PREDIABETES
[2018-08-16 12:40] LABS: EPI CELLS FEW /HPF; URINE WBC NONE SEEN (0-5)
[2018-08-16 12:41] LABS: URINE BACTERIA NONE SEEN /hpf (NEGATIVE)
[2018-08-16] MEDS: ONDANSETRON 4 MG/2 ML VIAL IVPUSH PRN (21:46)
[2018-08-17] MEDS ORDERED: ACETAMINOPHEN INJECTION 100 ML IVPB ONE (06:03)
[2018-08-17] MEDS: SODIUM CHLORIDE 1,000 ML IV SCH (06:09)
[2018-08-17] MEDS: ACETAMINOPHEN 1000 MG/100 ML VIAL (NON FORMULARY) IVPB PRN ×2 (06:10→13:03)
[2018-08-17] MEDS: ONDANSETRON 4 MG/2 ML VIAL IVPUSH PRN (06:43)
[2018-08-17 08:08] LABS: BASO % 1.2 % (0-2.0); EOS % 4.3 % (0-4.5); HEMATOCRIT 37.9 % (32.4-45.2); HEMOGLOBIN 12.9 GM/dl (10.7-15.3); LYMPH % 32.4 % (8-40); MCH 31.5 pg (25.7-33.7); MEAN CELL VOLUME 92.8 fl (80-96); MEAN PLT VOLUME 7.9 fl (7.5-11.1); MONO % 6.9 % (3.8-10.2); NEUT % 55.2 % (42.8-82.8); PLATELET COUNT 445 K/MM3 (134-434); RBC 4.09 M/mm3 (3.60-5.2); RDW 13.1 % (11.6-15.6); WHITE BLOOD COUNT 6.7 K/mm3 (4.0-10.8)
[2018-08-17 08:15] LABS: ALBUMIN 3.3 g/dl (3.4-5.0); ALK PHOS 88 U/L (45-117); ANION GAP 6 MMOL/L (8-16); BILIRUBIN,TOTAL 0.6 mg/dl (0.2-1); BLOOD UREA NITROGEN 8 mg/dl (7-18); CALCIUM 8.1 mg/dl (8.5-10); CHLORIDE 104 mmol/L (98-107); CO2 25 mmol/L (21-32); CREATININE 0.6 mg/dl (0.55-1.3); GLUCOSE,RANDOM 102 mg/dl (74-106); MAGNESIUM 1.9 mg/dL (1.8-2.4); PHOSPHOROUS 2.6 mg/dl (2.5-4.9); POTASSIUM 3.8 mmol/L (3.5-5.1); SGOT/AST 27 U/L (15-37); SGPT/ALT 31 U/L (13-61); SODIUM 135 mmol/L (136-145); TOT PROT 5.8 g/dl (6.4-8.2)
[2018-08-17] MEDS ORDERED: BISACODYL 5 MG TABLET.DR (FP) PO PRN (09:36)
--- NOTE | 2018-08-17 09:38 | PN ---
Progress Note, Physician Chief Complaint: abdominal pain History of Present Illness: 68yo female patient PMH obesity, pre-diabetes, thrombocytosis, hypercholeterolemia, chronic constipation, diverticulitis had 4 hospitalizations prior to surgery, s/p one stage sigmoidcolectomy at [facility], s /p right knee partial arthoplasty at [facility], multiple SBOs presented to emergency department with lower abdominal pain and vomiting reporting that she has a bowel obstruction. Last admission was exactly 1 year ago to the day. She has not had any vomiting has bad BM yesterday, and is passing flatus. some complaints of abdominal pain. - Current Medication List Current Medications: Active Medications Acetaminophen (Ofirmev Injection -) 1,000 mg IVPB Q6H PRN PRN Reason: PAIN LEVEL 6-10 Last Admin: 08/17/18 06:10 Dose: 1,000 mg Albuterol Sulfate (Ventolin 0.083% Nebulizer Soln -) 1 amp NEB Q4H PRN PRN Reason: SHORT OF BREATH/WHEEZING Bisacodyl (Dulcolax -) 5 mg PO DAILY PRN PRN Reason: CONSTIPATION Sodium Chloride (Normal Saline -) 1,000 mls @ 100 mls/hr IV ASDIR JOHANN Last Admin: 08/17/18 06:09 Dose: 100 mls/hr Ceftriaxone Sodium 2 gm/ (Dextrose) 100 mls @ 200 mls/hr IVPB DAILY JOHANN; Protocol Last Admin: 08/16/18 10:44 Dose: 200 mls/hr Metronidazole (Flagyl 500mg Premixed Ivpb -) 500 mg in 100 mls @ 100 mls/hr IVPB Q8H-IV JOHANN Last Admin: 08/17/18 02:45 Dose: Not Given Loratadine (Claritin -) 10 mg PO DAILY JOHANN Last Admin: 08/16/18 10:44 Dose: 10 mg Non-Formulary Medication (Fluticasone/Vilanterol [Breo Ellipta 100-25 Mcg Inh]) 1 each IH DAILY JOHANN Ondansetron HCl (Zofran Injection) 4 mg IVPUSH Q6H PRN PRN Reason: NAUSEA Last Admin: 08/17/18 06:43 Dose: 4 mg - Objective Vital Signs: Vital Signs Temperature 97.8 F 08/17/18 06:00 Pulse Rate 78 08/17/18 06:00 Respiratory Rate 18 08/17/18 06:00 Blood Pressure 148/62 08/17/18 06:00 O2 Sat by Pulse Oximetry (%) 97 08/17/18 06:00 Vital Signs Period Temp Pulse Resp BP Sys/Sterling Pulse Ox Last 24 Hr 97.8 F-98.1 F 66-78 18-18 119-148/40-62 95-97 Intake & Output 08/16/18 08/17/18 08/17/18 23:59 07:59 15:59 Intake Total 1200 2350 Balance 1200 2350 Intake: IV 1050 2150 Normal Saline - 1,000 ml 1050 1050 @ 100 mls/hr IV ASDIR JOHANN Rx#:[id number] saline 1100 IVPB 150 200 Oral 0 0 Other: Voiding Method Toilet Toilet Toilet # Unmeasured Voids Void 3 Bowel Movement No Constitutional: Yes: Well Nourished, No Distress, Calm, Obese Eyes: Yes: Conjunctiva Clear, EOM Intact HENT: Yes: Atraumatic, Normocephalic Neck: Yes: Supple, Trachea Midline Cardiovascular: Yes: Regular Rate and Rhythm, S1, S2 Respiratory: Yes: Regular, CTA Bilaterally Gastrointestinal: Yes: Normal Bowel Sounds, Soft, Abdomen, Obese. No: Palpable Mass, Tenderness, Tenderness, Epigastrium, Tenderness, Rebound ...Rectal Exam: Yes: Deferred Genitourinary: No: CVA Tenderness - Left, CVA Tenderness - Right Breast(s): No: Breast Implants, Gynecomastia, Mass, Nipple Inversion Musculoskeletal: No: Muscle Pain, Muscle Weakness Extremities: No: Cool, Cyanosis Edema: No Peripheral Pulses WNL: Yes Peripheral Pulses: Left Radial: 2+, Right Radial: 2+, Left Doralis Pedis: 2+, Right Dorsalis Pedis: 2+, Left Femoral: 2+, Right Femoral: 2+ Integumentary: No: Jaundice, Pressure Ulcer, Rash Wound/Incision: No: Clean/Dry, Well Approximated Neurological: Yes: Alert, Oriented Psychiatric: Yes: Alert, Oriented Labs: CBC, BMP 08/17/18 07:15 08/17/18 07:15 INR, PTT INR 1.07 (0.82-1.09) 08/16/18 10:57 Problem List - Problems (1) Partial small bowel obstruction Assessment/Plan: 68 yo female MMP with recurrently symptomatic SBO, last colonscopy 2018, at [facility]. Todays xray abdomen shows no ostructive gas pattern. no futher emesis, now passting BM and flatus No acute surgical intervention is indicated. Advance diet as tolerated antiemetic therapy Bowel regimen for constipation obtain colonoscopy report from [facility] GI doctor will follow peripherally Code(s): K56.69 - OTHER INTESTINAL OBSTRUCTION * DO NOT USE * (2) Abdominal pain, left lower quadrant Code(s): R10.32 - LEFT LOWER QUADRANT PAIN (3) Diverticulitis large intestine Code(s): K57.32 - DVTRCLI OF LG INT W/O PERFORATION OR ABSCESS W/O BLEEDING Qualifiers: Diverticulitis bleeding: without bleeding Diverticulitis complication: without perforation or abscess Qualified Code(s): K57.32 - Diverticulitis of large intestine without perforation or abscess without bleeding (4) Hypercholesteremia Code(s): E78.00 - PURE HYPERCHOLESTEROLEMIA, UNSPECIFIED (5) Obesity (BMI 30.0-34.9) Code(s): E66.9 - OBESITY, UNSPECIFIED (6) Pre-diabetes Code(s): R73.03 - PREDIABETES
[2018-08-17] MEDS ORDERED: DEXTROSE 5%-WATER 100 ML IVPB ONE (09:42)
[2018-08-17] MEDS: CEFTRIAXONE 2 GM in DEXTROSE 5%-WATER 100 ML IVPB SCH (10:00)
[2018-08-17] MEDS: LORATADINE 10 MG TABLET PO SCH (10:00)
[2018-08-17] MEDS ORDERED: ACETAMINOPHEN/CAFFEINE/BUTALBITAL 1 TAB PO PRN (13:33)
[2018-08-17] MEDS ORDERED: ONDANSETRON *ODT* 4 MG TABLET SL PRN (13:34)
--- NOTE | 2018-08-17 16:18 | PN ---
Physical Exam: SUBJECTIVE: Patient seen and examined OBJECTIVE: Vital Signs Period Temp Pulse Resp BP Sys/Sterling Pulse Ox Last 24 Hr 97.3 F-98.1 F 62-78 18-18 119-148/52-62 95-97 GENERAL: The patient is awake, alert, and fully oriented, in no acute distress. HEAD: Normal with no signs of trauma. EYES: PERRL, extraocular movements intact, sclera anicteric, conjunctiva clear. No ptosis. ENT: Ears normal, nares patent, oropharynx clear without exudates, moist mucous membranes. NECK: Trachea midline, full range of motion, supple. LUNGS: Breath sounds equal, clear to auscultation bilaterally, no wheezes, no crackles, no accessory muscle use. HEART: Regular rate and rhythm, S1, S2 without murmur, rub or gallop. ABDOMEN: Soft, nontender, nondistended, normoactive bowel sounds, no guarding, no rebound, no hepatosplenomegaly, no masses. EXTREMITIES: 2+ pulses, warm, well-perfused, no edema. NEUROLOGICAL: Cranial nerves II through XII grossly intact. Normal speech, gait not observed. PSYCH: Normal mood, normal affect. SKIN: Warm, dry, normal turgor, no rashes or lesions noted Laboratory Results - last 24 hr 08/17/18 08/17/18 07:15 07:15 WBC 6.7 RBC 4.09 Hgb 12.9 Hct 37.9 MCV 92.8 MCH 31.5 MCHC 34.0 RDW 13.1 Plt Count 445 H MPV 7.9 Absolute Neuts (auto) 3.6 Neutrophils % 55.2 Lymphocytes % 32.4 Monocytes % 6.9 Eosinophils % 4.3 Basophils % 1.2 Sodium 135 L Potassium 3.8 Chloride 104 Carbon Dioxide 25 Anion Gap 6 L BUN 8 Creatinine 0.6 Creat Clearance w eGFR > 60 Random Glucose 102 Calcium 8.1 L Phosphorus 2.6 Magnesium 1.9 Total Bilirubin 0.6 AST 27 ALT 31 Alkaline Phosphatase 88 D Total Protein 5.8 L Albumin 3.3 L Active Medications Generic Name Dose Route Start Last Admin Trade Name Freq PRN Reason Stop Dose Admin Acetaminophen/Butalbital/Caffeine 1 tablet 08/17/18 13:33 08/17/18 15:12 Fioricet - PO 1 tablet Q6H PRN Administration HEADACHE Albuterol Sulfate 1 amp 08/16/18 03:12 Ventolin 0.083% Nebulizer Soln - NEB Q4H PRN SHORT OF BREATH/WHEEZING Bisacodyl 5 mg 08/17/18 09:36 08/17/18 10:00 Dulcolax - PO 5 mg DAILY PRN Administration CONSTIPATION Loratadine 10 mg 08/16/18 10:15 08/17/18 10:00 Claritin - PO 10 mg DAILY JOHANN Administration Non-Formulary Medication 1 each 08/16/18 10:00 Fluticasone/Vilanterol [Breo Ellipta 100-25 Mcg Inh] IH DAILY JOHANN Ondansetron HCl 4 mg 08/17/18 13:34 Zofran Odt - SL Q6H PRN NAUSEA AND/OR VOMITING ASSESSMENT/PLAN: Hyponatremia --Na 132 on admission,resolved with IV fluids
--- NOTE | 2018-08-18 09:29 | DS ---
Physical Exam: SUBJECTIVE: Patient seen and examined OBJECTIVE: Vital Signs Period Temp Pulse Resp BP Sys/Sterling Pulse Ox Last 24 Hr 97.3 F-98.6 F 62-77 17-18 113-134/42-73 95-99 PHYSICAL EXAM GENERAL: The patient is awake, alert, and fully oriented, in no acute distress. HEAD: Normal with no signs of trauma. EYES: PERRL, extraocular movements intact, sclera anicteric, conjunctiva clear. ENT: Ears normal, nares patent, oropharynx clear without exudates, moist mucous membranes. NECK: Trachea midline, full range of motion, supple. LUNGS: Breath sounds equal, clear to auscultation bilaterally, no wheezes, no crackles, no accessory muscle use. HEART: Regular rate and rhythm, S1, S2 without murmur, rub or gallop. ABDOMEN: Soft, nontender, nondistended, normoactive bowel sounds, no guarding, no rebound, no hepatosplenomegaly, no masses. EXTREMITIES: 2+ pulses, warm, well-perfused, no edema. NEUROLOGICAL: Cranial nerves II through XII grossly intact. Normal speech, gait not observed. PSYCH: Normal mood, normal affect. SKIN: Warm, dry, normal turgor, no rashes or lesions noted. LABS HOSPITAL COURSE: Date of Admission:08/16/18 Date of Discharge: 08/18/18 Minutes to complete discharge: 35 Discharge Summary Reason For Visit: SMALL PARTIAL OBSTRUCTION. Current Active Problems Abdominal pain (Acute) Partial small bowel obstruction (Acute) Condition: Improved - Instructions Diet, Activity, Other Instructions: You are being discharged today after being treated for a small bowel obstruction. As discussed, advance your diet slowly. It is good to maintain a bowel regimen (as you have been doing) with miralax. You requested the name of a GI specialist. You may wish to contact: Dr. Leo Lawler [facility] [address] [facility], [address] [place] [id number] Return to the emergency department for any new or worsening symptoms. Referrals: Rakan Montejo MD [Primary Care Provider] - Disposition: HOME - Home Medications Comprehensive Discharge Medication List: Ambulatory Orders RX: Fluticasone/Vilanterol [Breo Ellipta 100-25 Mcg INH] 1 each IH DAILY RX: Polyethylene Glycol 3350 [Miralax 119 gm Btl -] 17 gm PO DAILY 08/15/18 RX: Albuterol Sulfate [Proair Hfa] 8.5 gm IH PRN PRN 08/16/18 RX: Loratadine 10 mg PO DAILY 08/16/18 This patient is new to me today: No Emergency Visit: Yes ED Registration Date: 08/16/18 Care time: The patient presented to the Emergency Department on the above date and was hospitalized for further evaluation of their emergent condition. Critical Care patient: No - Discharge Referral Referred to [facility] Med P.C.: No
[2018-08-18] MEDS: LORATADINE 10 MG TABLET PO SCH (10:28)
[2018-08-18 10:58] VITALS: BP 132/48; PULSE 85; TEMP 98.1
== END 2018-08-18 12:19 | disposition home or self-care (01) | DRG 389 ==
LOC: FER 19:26 → FM/S 08-16 00:47 → UNDOADMOB 08-16 00:47 → FM/S 08-16 03:12 → OBSVTOIN 08-16 12:53
PROVIDERS: ADMIT Internal Medicine; ATTEND Nurse Practitioner Acute Care
DX: K56.600 Partial intestinal obstruction, unspecified as to cause (principal); K57.32 Diverticulitis of large intestine without perforation or abscess without bleeding; E87.1 Hypo-osmolality and hyponatremia; K58.9 Irritable bowel syndrome, unspecified; J45.909 Unspecified asthma, uncomplicated; E66.9 Obesity, unspecified; G43.909 Migraine, unspecified, not intractable, without status migrainosus; E78.5 Hyperlipidemia, unspecified; Z90.49 Acquired absence of other specified parts of digestive tract; Z68.34 Body mass index [BMI] 34.0-34.9, adult; R73.03 Prediabetes; K59.09 Other constipation; E78.00 Pure hypercholesterolemia, unspecified; D47.3 Essential (hemorrhagic) thrombocythemia
CPT/HCPCS: 36415; 71046-TC-FY; 74019-TC-FY; 74177-TC; 80048; 80053; 81003; 81015; 83605; 83690; 83735; 84100; 85025; 85610; 86850; 86900; 86901; 87040; 87086; 93005; 97116-GP; 97161-GP; 99283-25; G0378; J0131; J7030

== ENCOUNTER 2019-04-01 15:38 | Inpatient (IN) | payer OTHER ==
--- NOTE | 2019-04-01 16:01 | PDOC ---
Rapid Medical Evaluation Chief Complaint: Chest Pain Time Seen by Provider: 04/01/19 16:01 Medical Evaluation: Allergies Allergy/AdvReac Type Severity Reaction Status Date / Time lansoprazole [From Prevacid] Allergy Severe Swelling Verified 02/18/15 08:06 metronidazole [From Flagyl] AdvReac Intermediate Vomiting Verified 02/18/15 08: 06 04/01/19 16:04 68-year-old female with hypercholesterolemia, asthma, IBS presenting with chest pain, dizziness, nausea that started at rest today. [place] dizzy in triage bathroom and pressed call [place]. Alert, oriented, no distress. No diaphoresis. RRR, S1/S2, no murmurs. Lungs CTAB. I have ordered the following: EKG, CXR, cardiac labs. Patient to proceed to ED for further evaluation. Discharge Disposition - Diagnosis Chest pain - Discharge Dispostion Condition at time of disposition: Stable - Referrals - Patient Instructions - Post Discharge Activity
[2019-04-01 16:27] LABS: BASO % 0.8 % (0-2.0); EOS % 0.8 % (0-4.5); HEMATOCRIT 43.8 % (32.4-45.2); HEMOGLOBIN 14.6 GM/dL (10.7-15.3); LYMPH % 25.9 % (8-40); MCH 30.6 pg (25.7-33.7); MCHC 33.4 g/dl (32.0-36.0); MEAN CELL VOLUME 91.8 fl (80-96); MEAN PLT VOLUME 7.3 fl (7.5-11.1); MONO % 5.9 % (3.8-10.2); NEUT % 66.6 % (42.8-82.8); PLATELET COUNT 465 K/MM3 (134-434); RBC 4.77 M/mm3 (3.60-5.2); RDW 13.6 % (11.6-15.6); WHITE BLOOD COUNT 11.2 K/mm3 (4.0-10.0)
[2019-04-01 16:45] LABS: INR 1.03 (0.83-1.09); PROTHROMBIN TIME (PATIENT) 12.2 SEC (9.7-13.0)
[2019-04-01 16:57] LABS: ALK PHOS 126 U/L (45-117); ANION GAP 9 MMOL/L (8-16); BILIRUBIN,TOTAL 0.4 mg/dL (0.2-1); BLOOD UREA NITROGEN 14.5 mg/dL (7-18); CALCIUM 9.4 mg/dL (8.5-10.1); CHLORIDE 104 mmol/L (98-107); CO2 25 mmol/L (21-32); CREATININE 0.7 mg/dL (0.55-1.3); GLUCOSE,RANDOM 109 mg/dL (74-106); POTASSIUM 4.3 mmol/L (3.5-5.1); SGOT/AST 39 U/L (15-37); SGPT/ALT 90 U/L (13-61); SODIUM 137 mmol/L (136-145); TOT PROT 7.7 g/dl (6.4-8.2)
--- NOTE | 2019-04-01 17:23 | PDOC ---
History of Present Illness - General Chief Complaint: Chest Pain Stated Complaint: CHEST PAIN Time Seen by Provider: 04/01/19 16:01 History Source: Patient, Family - History of Present Illness Initial Comments: 04/01/19 18:25 68 y/o F with hx complex migraines, HLD, vertigo p/w one day of chest pain, arm weakness, headache, left sided facial numbness. She reports that her symptoms began last night when she noted chest pain that radiated down her R arm as well as up to her R side of her neck. She denies any weakness, dizziness, numbness at that time. She reports waking up this morning and noting that her R arm felt "heavy", as well as an acute worsening of her vertigo, alongside nausea. She was evaluated by her daughter (who is an RIM FIRE PRIMING OPERATOR), who noted R informatica mdm developer strength weakness. She became concerned and brought her mother in for further evaluation. She reports that her migraines typically present with one sided facial numbness. She reports ongoing pain in her R arm. She denies any chest pain at this time, any shortness of breath, fatigue, night sweats, confusion, vision changes. Past History - Past Medical History Allergies/Adverse Reactions: Allergies Allergy/AdvReac Type Severity Reaction Status Date / Time lansoprazole [From Prevacid] Allergy Severe Swelling Verified 02/18/15 08:06 metronidazole [From Flagyl] AdvReac Intermediate Vomiting Verified 02/18/15 08: 06 Home Medications: Ambulatory Orders Loratadine 10 mg PO PRN PRN 08/16/18 Anemia: No Asthma: Yes Cancer: No Cardiac Disorders: No CVA: No COPD: No CHF: No DVT: No Dementia: No Diabetes: No Dialysis: No GI Disorders: Yes (IBS,OBSTRUCTION,DIVERTIC) Disorders: No HTN: No Hypercholesterolemia: Yes Kidney Stones: No Liver Disease: (elevated liver enzyme) Seizures: No Thyroid Disease: No - Surgical History Abdominal Surgery: Yes (resection for diverticulitis) Appendectomy: No Cardiac Surgery: No Cholecystectomy: No Lung Surgery: No Neurologic Surgery: No Orthopedic Surgery: No - Immunization History Immunization Up to Date: No - Psycho Social/Smoking Cessation Hx Smoking Status: No Smoking History: Never smoked Have you smoked in the past 12 months: No Number of Cigarettes Smoked Daily: 0 Information on smoking cessation initiated: No Hx Alcohol Use: No Drug/Substance Use Hx: No Substance Use Type: None Hx Substance Use Treatment: No Review of Systems - Review of Systems Able to Perform ROS?: Yes Comments:: ROS: GENERAL/CONSTITUTIONAL: Weakness. No fever or chills. HEAD, EYES, EARS, NOSE AND THROAT: No change in vision. No ear pain or discharge. No sore throat. CARDIOVASCULAR: No chest pain or shortness of breath RESPIRATORY: No cough, wheezing, or hemoptysis. GASTROINTESTINAL: No nausea, vomiting, diarrhea or constipation. GENITOURINARY: No dysuria, frequency, or change in urination. MUSCULOSKELETAL:R arm pain. No other joint or muscle swelling or pain. No neck or back pain. SKIN: No rash NEUROLOGIC: Headache, vertigo, decrease in strength/sensation of RUE. No loss of consciousness. ENDOCRINE: No increased thirst. No abnormal weight change HEMATOLOGIC/LYMPHATIC: No anemia, easy bleeding, or history of blood clots. ALLERGIC/IMMUNOLOGIC: No hives or skin allergy. Constitutional: Yes: See HPI HEENTM: Yes: See HPI Respiratory: Yes: See HPI Cardiac (ROS): Yes: See HPI, Chest Pain. No: Palpitations, Syncope, Chest Tightness Neurological: Yes: See HPI, Headache, Numbness, Weakness, Dizziness (Vertigo). No: Unsteady Gait, Ataxia *Physical Exam - Vital Signs Last Vital Signs Temp Pulse Resp BP Pulse Ox 98.1 F 97 H 16 165/75 98 04/01/19 15:59 04/01/19 15:59 04/01/19 15:59 04/01/19 15:59 04/01/19 15:59 - Physical Exam Comments: PE: GENERAL: Awake, alert, and fully oriented, mild distress HEAD: No signs of trauma, normocephalic, atraumatic EYES: PERRLA, EOMI, sclera anicteric, conjunctiva clear ENT: Auricles normal inspection, hearing grossly normal, nares patent, oropharynx clear without exudates. Moist mucosa NECK: Normal ROM, supple, no lymphadenopathy, JVD, or masses LUNGS: No distress, speaks full sentences, clear to auscultation bilaterally HEART: Regular rate and rhythm, normal S1 and S2, no murmurs, rubs or gallops, peripheral pulses normal and equal bilaterally. ABDOMEN: Soft, nontender, normoactive bowel sounds. No guarding, no rebound. No masses EXTREMITIES : Normal inspection, Normal range of motion, no edema. No clubbing or cyanosis NEUROLOGICAL: 4/5 R informatica mdm developer strength. 5/5 strength of bilateral upper extremities both flexion and extension. 5/5 strength of lower extremities. Mild diminished sensation of RUE. Cranial nerves II through XII grossly intact. Normal speech, normal gait. No arm drift, no facial droop. SKIN: Warm, Dry, normal turgor, no rashes or lesions noted General Appearance: Yes: Nourished, Appropriately Dressed, Apparent Distress, Mild Distress HEENT: positive: EOMI, ARIEL, Normal Voice, Symmetrical Neurologic: positive: printed circuit boards router II-XII NML intact, Fully Oriented, Alert, Normal Mood/ Affect, Normal Response, Motor Strength 11/07 ED Treatment Course - LABORATORY CBC & Chemistry Diagram: 04/02/19 06:39 04/02/19 06:39 - ADDITIONAL ORDERS Additional order review: Laboratory Results 04/01/19 04/01/19 04/01/19 16:12 16:12 16:12 PT with INR 12.20 INR 1.03 Sodium 137 Potassium 4.3 Chloride 104 Carbon Dioxide 25 Anion Gap 9 BUN 14.5 Creatinine 0.7 Est GFR (CKD-EPI)AfAm 101.74 Est GFR (CKD-EPI)NonAf 87.78 Random Glucose 109 H Calcium 9.4 Total Bilirubin 0.4 AST 39 H ALT 90 H Alkaline Phosphatase 126 H Creatine Kinase 58 Troponin I < 0.02 B-Natriuretic Peptide 18.0 Total Protein 7.7 Albumin 4.0 04/01/19 16:12 RBC 4.77 MCV 91.8 MCHC 33.4 RDW 13.6 MPV 7.3 L Neutrophils % 66.6 D Lymphocytes % 25.9 D Monocytes % 5.9 Eosinophils % 0.8 Basophils % 0.8 D Medical Decision Making - Medical Decision Making 04/01/19 19:12 68F with hx HLD, vertigo, complex migraines p/w one day of chest pain (now resolved), RUE weakness and numbness, vertigo, headache concerning for CVA vs ACS vs dissection. Dissection unlikely given resolution of chest pain before arrival. Neurological signs possibly due to complex migraine as her migraines often present with one sided paresthesias, but cannot rule out CVA at this time. Plan: CBC CMP Cardiac profile CT Head without contrast EKG CXR Mirtha Knowles Dispo: Admit --- NIHSS: 1 (diminished RUE sensation) --- CT Head - notable for small calcifications vs small acute petechial hemorrhage. Plan for neurosurgery consult, admit. --- Case discussed with Dr. Albright. He will see the patient, no recs at this time. Plan for inpatient stat MRI. --- Dr. Albright evaluated patient, he is concerned for worsening neuro exam. For him - LLE weakness, LLE sensation, diminished sensation on L sided CN V1-V3. Plan for ASA, stat MRI, consult with neurology. --- Case signed out to Dr. Cochran. Discharge - Discharge Information Problems reviewed: Yes Clinical Impression/Diagnosis: Right-sided muscle weakness, Right facial numbness, Right upper limb pain Chest pain Qualifiers: Chest pain type: unspecified Qualified Code(s): R07.9 - Chest pain, unspecified Condition: Stable - Follow up/Referral - Patient Discharge Instructions - Post Discharge Activity
--- NOTE | 2019-04-01 17:28 | PDOC ---
Attending Attestation - Resident Resident Name: Alexey Whitten - ED Attending Attestation I have performed the following: I have examined & evaluated the patient, The case was reviewed & discussed with the resident, I agree w/resident's findings & plan, Exceptions are as noted - HPI HPI: 04/01/19 17:37 Ms Haney is a 68 year old female with a significant past medical history of asthma, complex migraines, diverticulitis (s/p colon resection in 2010) and IBS who presents to the ED with a complaint of chest pain, vertigo, arm weakness She presents with a complaint of one day of new onset chest pain, arm weakness, headache, vertigo right sided facial numbness. Symptoms started last night with a chest pain that radiated up her R neck and down her R arm. Was initially not concerned, went to bed and woke up this morning with R arm weakness, vertigo, nausea. Denies fever or chills. Denies any other symptoms. 04/01/19 18:15 - Physicial Exam PE: 04/01/19 18:16 GENERAL: The patient is in no acute distress. ENT: Ears normal, nares patent, oropharynx clear without exudates. Moist mucous membranes. NECK: Normal range of motion, supple LUNGS: Breath sounds equal, clear to auscultation bilaterally. No wheezes, and no crackles. HEART:Regular rate and rhythm, normal S1 and S2 without murmur, rub or gallop. ABDOMEN: Soft, nontender, normoactive bowel sounds. EXTREMITIES: Normal range of motion, no edema. NEUROLOGICAL: Cranial nerves II through XII grossly intact. Normal speech. No focal neurological deficits. SKIN: Warm, Dry, normal turgor, no rashes or lesions noted. - Critical Care Time Total Critical Care Time: 60 Critical Care Statement: The care of this patient involved high complexity decision making to prevent further life threatening deterioration of the patient 's condition and/or to evaluate & treat vital organ system(s) failure or risk of failure. - Medical Decision Making 04/01/19 18:16 Laboratory Tests 04/01/19 04/01/19 04/01/19 16:12 16:12 16:12 WBC 11.2 H Hgb 14.6 Hct 43.8 Plt Count 465 H INR 1.03 BUN 14.5 Creatinine 0.7 Creatine Kinase 58 Troponin I < 0.02 CT head pending 04/01/19 18:18 EKG - NS rate of 96 bpm, axis nml. intervals nml, no st elevation or depressions CT head reveals L frontal lobe hyperdense foci consistent with calcifications vs. punctate hemorrhage. Neurosurgeon Dr. Gerson Albright consulted for possible hemorrhagic stroke, recommends ASA, stat MRI, and neurology consult. Pt admitted to Dr. Rakan Montejo for admission, agrees with this plan and would like ICU admission for possible hemorrhagic stroke. Consulted ICU resident Clinical impression: possible CVA NIH Stroke Scale - Initial Evaluation Motor Function: Left Leg: Normal (extends leg 30 degrees for 5 seconds without drift)
[2019-04-01] MEDS ORDERED: ACETAMINOPHEN/CAFFEINE/BUTALBITAL 1 TAB PO ONE (18:50)
[2019-04-01] MEDS ORDERED: METOCLOPRAMIDE HCL 10 MG TABLET (FP) PO ONE ×2 (18:51→19:08)
[2019-04-01] MEDS ORDERED: ACETAMINOPHEN/CAFFEINE/BUTALBITAL 1 TAB ONE (19:08)
--- NOTE | 2019-04-01 19:39 | PN ---
Progress Note (short form) - Note Progress Note: NEUROSURGERY CONSULT DICTATED H/o asthma, complex migraines, diverticulitis (s/p colon resection in 2010) and thrombocytosis c/o chest pain, vertigo, blurry vision, R arm weakness initially yesterday; symptoms improved spontaneously but worsened today again in terms of diffuse h/a, blurriness and nausea, and R arm pain. Currently, pt denies chest pain or SOB, fever or chills. Occ alternating facial numbness.; also c/o R shoulder pain to arm/forearm PE: 98, 165/75 HEENT- NC/AT; neck- supple, no bruit; Cor- RR; Lungs- CTA; Abd- benign, mildly obese; Ext- no sign of DVT CN- mild R lower facial numbness to LT/PP; Motor- R hemiparesis 4/5, + R UE drift; Sensation- decreased LT/PP/vibration R UE and LE; Cerebellar intact FTN B Head CT- L anterior frontal white matter small oval hyperdensity x2; no edema or shift Labs reviewed Stat MRI to r/o L MCA distribution ischemia Neurology consult ASA No neurosurgical intervention indicated at this time Monitor neuro status Condition and possible tx d/w pt, daughter, and ED team
--- NOTE | 2019-04-01 19:50 | PDOC ---
*Physical Exam - Vital Signs Last Vital Signs Temp Pulse Resp BP Pulse Ox 98.1 F 97 H 16 165/75 98 04/01/19 15:59 04/01/19 15:59 04/01/19 15:59 04/01/19 15:59 04/01/19 15:59 ED Treatment Course - LABORATORY CBC & Chemistry Diagram: 04/01/19 16:12 04/01/19 16:12 - ADDITIONAL ORDERS Additional order review: Laboratory Results 04/01/19 04/01/19 04/01/19 16:12 16:12 16:12 PT with INR 12.20 INR 1.03 Sodium 137 Potassium 4.3 Chloride 104 Carbon Dioxide 25 Anion Gap 9 BUN 14.5 Creatinine 0.7 Est GFR (CKD-EPI)AfAm 101.74 Est GFR (CKD-EPI)NonAf 87.78 Random Glucose 109 H Calcium 9.4 Total Bilirubin 0.4 AST 39 H ALT 90 H Alkaline Phosphatase 126 H Creatine Kinase 58 Troponin I < 0.02 B-Natriuretic Peptide 18.0 Total Protein 7.7 Albumin 4.0 04/01/19 16:12 RBC 4.77 MCV 91.8 MCHC 33.4 RDW 13.6 MPV 7.3 L Neutrophils % 66.6 D Lymphocytes % 25.9 D Monocytes % 5.9 Eosinophils % 0.8 Basophils % 0.8 D - Medications Given in the ED: ED Medications Discontinued Medications Generic Name Dose Route Start Last Admin Trade Name Freq PRN Reason Stop Dose Admin Acetaminophen/Butalbital/Caffeine 1 tablet 04/01/19 18:50 04/01/19 19:12 Fioricet - PO 04/01/19 18:51 1 tablet ONCE ONE Administration Metoclopramide HCl 10 mg 04/01/19 18:51 04/01/19 19:12 Reglan - PO 04/01/19 18:52 10 mg ONCE ONE Administration Medical Decision Making - Medical Decision Making 04/01/19 19:45 ......... Discharge - Discharge Information Clinical Impression/Diagnosis: Chest pain Condition: Stable - Follow up/Referral Referrals: Rakan Montejo MD [Primary Care Provider] - - Patient Discharge Instructions - Post Discharge Activity
[2019-04-01] MEDS ORDERED: ASPIRIN 325 MG TABLET PO ONE (19:52)
--- NOTE | 2019-04-01 19:52 | PDOC ---
*Physical Exam - Vital Signs Last Vital Signs Temp Pulse Resp BP Pulse Ox 98.1 F 97 H 16 165/75 98 04/01/19 15:59 04/01/19 15:59 04/01/19 15:59 04/01/19 15:59 04/01/19 15:59 - Physical Exam General Appearance: Yes: Nourished, Appropriately Dressed, Apparent Distress, Moderate Distress HEENT: positive: EOMI, ARIEL, Normal Voice, Symmetrical, Pharynx Normal, Hearing Grossly Normal. negative: Scleral Icterus (R), Scleral Icterus (L), Pharyngeal Erythema, Tonsillar Exudate, Tonsillar Erythema, Rhinorrhea, Sinus Tenderness Neck: positive: Trachea midline, Supple. negative: Tender, Rigid, Lymphadenopathy (R), Lymphadenopathy (L) Respiratory/Chest: positive: Lungs Clear, Normal Breath Sounds. negative: Chest Tender, Respiratory Distress, Crackles, Rales, Rhonchi Cardiovascular: positive: Regular Rhythm, Regular Rate. negative: Edema Gastrointestinal/Abdominal: positive: Normal Bowel Sounds, Flat, Soft. negative : Tender Musculoskeletal: positive: Normal Inspection. negative: CVA Tenderness, Decreased Range of Motion Extremity: positive: Normal Capillary Refill, Normal Inspection, Normal Range of Motion. negative: Tender, Coldness, Erythema Integumentary: positive: Normal Color, Dry, Warm Neurologic: positive: Fully Oriented, Alert, Normal Mood/Affect, Normal Response , Numbness, Other (Patient does not appear to have facial droop, aphasia, or dyslexia. Sensation to light touch decreased on R face, RUE, and RLE compared to left side. Has 4/5 motor weakness to RUE and RLE, moves spontanously against gravity but global head advertiser solutions, biceps, and quads strength decreased compared to left side. Alert and oriented to person place and time, responds appropriately to voice and questioning.). negative: Facial Droop, Confused ED Treatment Course - LABORATORY CBC & Chemistry Diagram: 04/02/19 06:39 04/02/19 06:39 - ADDITIONAL ORDERS Additional order review: Laboratory Results 04/01/19 04/01/19 04/01/19 16:12 16:12 16:12 PT with INR 12.20 INR 1.03 Sodium 137 Potassium 4.3 Chloride 104 Carbon Dioxide 25 Anion Gap 9 BUN 14.5 Creatinine 0.7 Est GFR (CKD-EPI)AfAm 101.74 Est GFR (CKD-EPI)NonAf 87.78 Random Glucose 109 H Calcium 9.4 Total Bilirubin 0.4 AST 39 H ALT 90 H Alkaline Phosphatase 126 H Creatine Kinase 58 Troponin I < 0.02 B-Natriuretic Peptide 18.0 Total Protein 7.7 Albumin 4.0 04/01/19 16:12 RBC 4.77 MCV 91.8 MCHC 33.4 RDW 13.6 MPV 7.3 L Neutrophils % 66.6 D Lymphocytes % 25.9 D Monocytes % 5.9 Eosinophils % 0.8 Basophils % 0.8 D - Medications Given in the ED: ED Medications Discontinued Medications Generic Name Dose Route Start Last Admin Trade Name Freq PRN Reason Stop Dose Admin Acetaminophen/Butalbital/Caffeine 1 tablet 04/01/19 18:50 04/01/19 19:12 Fioricet - PO 04/01/19 18:51 1 tablet ONCE ONE Administration Metoclopramide HCl 10 mg 04/01/19 18:51 04/01/19 19:12 Reglan - PO 04/01/19 18:52 10 mg ONCE ONE Administration Medical Decision Making - Medical Decision Making 04/01/19 19:25 Angelica Haney is a 68F with history of complex migraines, vertigo, and HLD presenting with one day of new onset chest pain, arm weakness, headache, vertigo right sided facial numbness concerning for CVA. Symptoms started last night with a chest pain that radiated up her R neck and down her R arm. Was not concerned, went to bed and woke up this morning with R arm weakness, vertigo, nausea. Seen by daughter (Priscila, #[id number]) who found that patient had R sided muscle weakness and brought her to the emergency room. History of migraines and facial numbness on one side, but denies prior muscle weakness or injuries. Formerly on a statin but stopped 2/2 side effects. Not having chest pain at this time. ECG reveals NSR, HR 96, CA interval 130, QTC 332. Labs reveal WBC 11.2, negative troponins. CT head reveals L frontal lobe hyperdense foci consistent with calcifications vs. punctate hemorrhage. Neurosurgeon Dr. Gerson Albright consulted for possible hemorrhagic stroke, recommends ASA, stat MRI, and neurology consult. Spoke with Dr. Rakan Montejo for admission, agrees with this plan and would like ICU admission for possible hemorrhagic stroke. Consulted Dr. Holley with neurology, is less concerned about ischemic stroke given low bleed on CT, more likely ischemic infarct. Out of range of tPA, but may be eligible for mechanical thrombectomy once MRI performed. Consulted ICU resident Dr. Weiss, agrees to take patient for concern for hemorrhagic stroke. 04/01/19 20:58 Patient refusing MRI 2/2 claustrophobia. MRI reporting to be closed at 9PM, called and asked for patient to be scanned for STAT MRI. MRI contrast infusion pump broken, unable to obtain MRA with contrast, will re- order MRA non-con 2/2 urgency of evaluation given likely ischemia CVA. Patient given 1mg Ativan for claustrophobia during procedure. 04/01/19 21:08 Patient brought to MRI, getting scan now. 04/02/19 00:21 MRI read, no large vessel occlusion but has multiple punctate lesions consistent with CT. ICU team updated and saw patient in ED, good to admitted to ICU for possible hemorrhagic pathology with Neuro evaluation tonight or in AM. Given no signs of large vessel occlusion, cause of MSK weakness and numbness unclear at this time, still requires inpatient admission for further evaluation of ischemic disease in brain and characterization of lesions seen. Discharge - Discharge Information Problems reviewed: Yes Clinical Impression/Diagnosis: Right-sided muscle weakness, Right facial numbness, Right upper limb pain Chest pain Qualifiers: Chest pain type: unspecified Qualified Code(s): R07.9 - Chest pain, unspecified Condition: Stable - Follow up/Referral - Patient Discharge Instructions - Post Discharge Activity
[2019-04-01] MEDS ORDERED: ASPIRIN 81 MG CHEWABLE TABLETS ONE (20:21)
[2019-04-01] MEDS ORDERED: ACETAMINOPHEN 325 MG TABLET (FP) PO ONE (20:24)
[2019-04-01] MEDS ORDERED: ALPRAZolam 1 MG TABLET PO ONE (20:59)
[2019-04-01] MEDS ORDERED: LORazepam 2 MG/ML SDV VIAL IVPUSH ONE (21:07)
[2019-04-01] MEDS ORDERED: LORazepam 2 MG/ML SDV VIAL ONE (21:11)
--- NOTE | 2019-04-01 22:10 | HP ---
Admitting History and Physical - Primary Care Physician PCP: Rakan Montejo - Admission Chief Complaint: right arm pain and dizziness History of Present Illness: Pt with known hyperlipidemia (self DC'ed statin) [facility] unt[facility] last night when developed right side CP on and off w/o associated symptoms (no palpitations, SOB , dizziness). This AM around 5 AM pt woke up with right shoulder and arm pain, blurry vision, associated on and off with dizziness, w/o CP or palpitations or SOB or motor weakness. In the afternoon she decided to come to ER where was found to have weakness and decreased sensation of the right arm and leg. History Source: Patient, Family Member (daughter at the bedside.) - Past Medical History LIGHTING DIRECTOR: Yes: Other (Headache) Cardiovascular: Yes: Hyperlipdemia Pulmonary: Yes: Asthma Gastrointestinal: Yes: Constipation, Diverticulitis, Other (bowel obstruction ) Heme/Onc: Yes: Other (Thrombocytosis on ASA) Musculoskeletal: Yes: Chronic low back pain, Osteoarthritis - Past Surgical History Past Surgical History: Yes: Colectomy (elective laparoscopic sigmoidectomy) - Smoking History Smoking history: Never smoked Have you smoked in the past 12 months: No Aproximately how many cigarettes per day: 0 - Alcohol/Substance Use Hx Alcohol Use: No History of Substance Use: reports: None - Social History History of Recent Travel: No Home Medications - Allergies Allergies/Adverse Reactions: Allergies Allergy/AdvReac Type Severity Reaction Status Date / Time lansoprazole [From Prevacid] Allergy Severe Swelling Verified 02/18/15 08:06 metronidazole [From Flagyl] AdvReac Intermediate Vomiting Verified 02/18/15 08: 06 - Home Medications Home Medications: Ambulatory Orders Loratadine 10 mg PO PRN PRN 08/16/18 Review of Systems - Review of Systems Constitutional: denies: Chills, Fever Eyes: denies: Blurred Vision, Double Vision, Photophobia HENT: denies: Difficult Swallowing, Ear Discharge, Ear Pain, Epistaxis, Nasal Congestion, Throat Pain Neck: denies: Pain on Movement, Stiffness Cardiovascular: denies: Chest Pain, Edema, Palpitations Respiratory: denies: Cough, SOB, Wheezing Gastrointestinal: denies: Abdominal Pain, Nausea, Vomiting Genitourinary: denies: Burning, Discharge, Dysuria Musculoskeletal: denies: Back Pain, Muscle Pain Integumentary: denies: Bruising, Rash Neurological: denies: Change in LOC, Change in Speech, Confusion, Incoordination , Numbness, Weakness Endocrine: denies: Excessive Sweating, Intolerance to Cold Hematology/Lymphatic: denies: Easily Bruised, Excessive Bleeding Psychiatric: denies: Anxiety, Depression Physical Examination Vital Signs: Vital Signs Temperature 98.1 F 04/01/19 15:59 Pulse Rate 97 H 04/01/19 15:59 Respiratory Rate 16 04/01/19 15:59 Blood Pressure 165/75 04/01/19 15:59 O2 Sat by Pulse Oximetry (%) 98 04/01/19 15:59 Constitutional: Yes: No Distress, Calm Eyes: Yes: Conjunctiva Clear, EOM Intact, PERRL HENT: Yes: Normocephalic. No: Epistaxis, Pharyngeal Erythema, Rhinnorhea Neck: Yes: Trachea Midline. No: Lymphadenopathy Cardiovascular: Yes: Regular Rate and Rhythm, S1, S2 Respiratory: Yes: Regular, CTA Bilaterally. No: Rhonchi Gastrointestinal: Yes: Normal Bowel Sounds, Soft. No: Tenderness ...Rectal Exam: Yes: Deferred Renal/: No: Bladder Distention, [place] Present Breast(s): Yes: Other (deferred) Musculoskeletal: No: Back Pain, Joint Stiffness Extremities: No: Cold, Cool, Cyanosis Edema: No Integumentary: No: Erythema, Rash Neurological: Yes: Alert, Oriented, Cran Nerves II-XII Intact (except decreased motor (4/5) in right UE and LE, decreased tactile fine sensation and temp sensation in right UE and LE) Psychiatric: Yes: Alert, Oriented Labs: CBC, BMP 04/01/19 16:12 04/01/19 16:12 Imaging - Results Chest X-ray: Report Reviewed Cat Scan: Report Reviewed Problem List - Problems (1) Acute cerebrovascular accident (CVA) Code(s): I63.9 - CEREBRAL INFARCTION, UNSPECIFIED (2) Hypercholesteremia Code(s): E78.00 - PURE HYPERCHOLESTEROLEMIA, UNSPECIFIED Assessment/Plan Admit to ICU NeuroSX consult; Dr Albright at bedside; to send pt to MRI (now) Neuro consult Cardio consult Neurochecks BP management and ASA per MRI report. Pt's daughter is at bedside. Pt wants to sign out AMA. I reviewed with pt risks she takes if leaving AMA, including sequela of stoke. Pt decied to stay AM labs. Prognosis is reserved. Time spent for patient's care: over 85 minutes
[2019-04-01] MEDS ORDERED: ATORVASTATIN CA 40 MG TABLET (FP) PO ONE (23:10)
[2019-04-01] MEDS ORDERED: ATORVASTATIN CA 40 MG TABLET (FP) ONE (23:25)
--- NOTE | 2019-04-01 23:50 | CONSULT ---
Consultation: REQUESTING PROVIDER: CONSULT REQUEST: We have been asked to medically evaluate this patient for ICU. HISTORY OF PRESENT ILLNESS: 68 yo F w/ PMH obesity, pre-diabetes, asthma, thrombocytosis,migraines, hypercholeterolemia, diverticulitis (s/p one stage sigmoidcolectomy), s/p right knee partial arthoplasty at [facility], multiple SBOs presented to the hospital for chest pain and right sided weakness. Pt states that last night around 7 pm she had chest pain which radiates from her R scapula to her R hand. She states that earlier in the day she had a mild headache which was not resolved by fioricet but different in nature from her migraines. Pt states that she also gets episodes of dizziness and visual disturbances when she changes position, especially when she stands from seated position). Pt states she has not had similar symptoms in the past. Pt's mother of Leukemia in 60s. 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 REVIEW OF SYSTEMS: CONSTITUTIONAL: Present: generalized weakness, chills Absent: fever, diaphoresis, malaise, loss of appetite, weight change HEENT: Absent: rhinorrhea, nasal congestion, throat pain, throat swelling, difficulty swallowing, mouth swelling, ear pain, eye pain CARDIOVASCULAR: Present: chest pain, lightheadedness Absent: syncope, palpitations, irregular heart rate, peripheral edema RESPIRATORY: Absent: cough, shortness of breath, dyspnea with exertion, orthopnea, wheezing GASTROINTESTINAL: Present: nausea, hemorrhoids Absent: abdominal pain, abdominal distension, vomiting, diarrhea, constipation MUSCULOSKELETAL: Present: back pain Absent: myalgia, arthralgia, joint swelling NEUROLOGIC: Present: headache, Right sided weakness, dizziness, unsteadiness, sensory deficit on R side Absent: seizure, mental status changes, bladder or bowel incontinence PHYSICAL EXAMINATION Vital Signs - 24 hr 04/01/19 04/01/19 15:59 22:12 Temperature 98.1 F 97.6 F Pulse Rate 97 H Pulse Rate [ 81 Left Radial] Respiratory 16 19 Rate Blood Pressure 165/75 Blood Pressure 160/71 [Right Arm] O2 Sat by Pulse 98 99 Oximetry (%) GENERAL: Awake, alert, and fully oriented,mildly anxious HEAD: Normal with no signs of trauma. EYES: Pupils equal, round and reactive to light, extraocular movements intact, sclera anicteric, conjunctiva clear EARS, NOSE, THROAT: nares patent, oropharynx clear without exudates. Moist mucous membranes. NECK: Normal range of motion, supple without lymphadenopathy, JVD, or masses. no thyromegaly LUNGS: Breath sounds equal, clear to auscultation bilaterally. No wheezes, and no crackles. No accessory muscle use. HEART: Regular rate and rhythm, normal S1 and S2 without murmur, rub or gallop. ABDOMEN: Soft, nontender, not distended, hypoactive bowel sounds, no guarding, no rebound, no masses. MUSCULOSKELETAL: Normal range of motion at all joints. No bony deformities or tenderness. No CVA tenderness. UPPER EXTREMITIES: 2+ pulses, warm, well-perfused. No cyanosis. No clubbing. No peripheral edema. LOWER EXTREMITIES: 2+ pulses, warm, well-perfused. No calf tenderness. No peripheral edema. NEUROLOGICAL: Cranial nerves II-XII intact. Normal speech. Normal gait. Muscle strength of UE and LE : 3/5 on R , 5/5 on Left . Pt demonstrates weakness with all motor activity on R side when compared to left. Pt has weaker shrug on R side when compared to L. pt is unsteady when standing. + ataxia finger to nose testing was abnormal SKIN: Warm, dry, normal turgor, no rashes or lesions noted. Laboratory Last Values WBC 11.2 K/mm3 (4.0-10.0) H 04/01/19 16:12 RBC 4.77 M/mm3 (3.60-5.2) 04/01/19 16:12 Hgb 14.6 GM/dL (10.7-15.3) 04/01/19 16:12 Hct 43.8 % (32.4-45.2) 04/01/19 16:12 MCV 91.8 fl (80-96) 04/01/19 16:12 MCH 30.6 pg (25.7-33.7) 04/01/19 16:12 MCHC 33.4 g/dl (32.0-36.0) 04/01/19 16:12 RDW 13.6 % (11.6-15.6) 04/01/19 16:12 Plt Count 465 K/MM3 (134-434) H 04/01/19 16:12 MPV 7.3 fl (7.5-11.1) L 04/01/19 16:12 Absolute Neuts (auto) 7.5 K/mm3 (1.5-8.0) 04/01/19 16:12 Neutrophils % 66.6 % (42.8-82.8) D 04/01/19 16:12 Lymphocytes % 25.9 % (8-40) D 04/01/19 16:12 Monocytes % 5.9 % (3.8-10.2) 04/01/19 16:12 Eosinophils % 0.8 % (0-4.5) 04/01/19 16:12 Basophils % 0.8 % (0-2.0) D 04/01/19 16:12 Nucleated RBC % 0 % (0-0) 04/01/19 16:12 PT with INR 12.20 SEC (9.7-13.0) 04/01/19 16:12 INR 1.03 (0.83-1.09) 04/01/19 16:12 Sodium 137 mmol/L (136-145) 04/01/19 16:12 Potassium 4.3 mmol/L (3.5-5.1) 04/01/19 16:12 Chloride 104 mmol/L (98-107) 04/01/19 16:12 Carbon Dioxide 25 mmol/L (21-32) 04/01/19 16:12 Anion Gap 9 MMOL/L (8-16) 04/01/19 16:12 BUN 14.5 mg/dL (7-18) 04/01/19 16:12 Creatinine 0.7 mg/dL (0.55-1.3) 04/01/19 16:12 Est GFR (CKD-EPI)AfAm 101.74 04/01/19 16:12 Est GFR (CKD-EPI)NonAf 87.78 04/01/19 16:12 Random Glucose 109 mg/dL (74-106) H 04/01/19 16:12 Calcium 9.4 mg/dL (8.5-10.1) 04/01/19 16:12 Total Bilirubin 0.4 mg/dL (0.2-1) 04/01/19 16:12 AST 39 U/L (15-37) H 04/01/19 16:12 ALT 90 U/L (13-61) H 04/01/19 16:12 Alkaline Phosphatase 126 U/L (45-117) H 04/01/19 16:12 Creatine Kinase 58 U/L (26-192) 04/01/19 16:12 Troponin I < 0.02 ng/ml (0.00-0.05) 04/01/19 16:12 B-Natriuretic Peptide 18.0 pg/ml (5-125) 04/01/19 16:12 Total Protein 7.7 g/dl (6.4-8.2) 04/01/19 16:12 Albumin 4.0 g/dl (3.4-5.0) 04/01/19 16:12 ASSESSMENT/PLAN: 68 yo F w/ PMH obesity, pre-diabetes, asthma, thrombocytosis,migraines, hypercholeterolemia, diverticulitis (s/p one stage sigmoidcolectomy), s/p right knee partial arthoplasty at [facility], multiple SBOs presented to the hospital for chest pain and right sided weakness. Pt is admitted to ICU for TIA vs acute hemorrhagic stroke. Neuro: r/o acute hemorrhagic stroke -AAOx3 -neuro exam findings stated above -NIHSS 3 -CT head showing: L anterior frontal white matter small oval hyperdensity x2; no edema or shift -MRI nighthawk: No acute infarction, hemorrhage, or space occupying brain mass is seen. There are mild white matter hyperdensities which may represent small vessel ischemic change. Arteries of the [place] show no major branch occlusion or aneurysm. There is irregularity of both MCA L> R compatible with atherosclerotic disease. -Neurosurgery recs appreciated ( Dr. Albright), no acute surgical intervention -c/w Asa - pt occasionally takes percocet 2.5 mg for chronic pain. pt is refusing tylenol. cannot give advil 2/2 possible acute hemorrhage . avoid opiates in setting of acute stroke-need to assess neuro status. Cardio: chest pain r/o ACS; hypercholesterolemia -orthostatic negative -continue tele monitoring -trops neg x 2 -EKG reviewed, NSR no ST changes -pt does not take statin at home 2/2 prior rhabdo in past -awaiting lipid panel Pulm: Asthma -uses Breo inhaler at home and albuterol prn -c/w albuterol prn Endo: pre-diabetes -awaiting TFTs -monitor Glucose Heme: thrombocytosis -chronic -pt has family history of leukemia -continue to monitor outpt F/E/N -monitor lytes DVT ppx: SCDs Dispo: We will continue to follow the patient. Thank you for this consultative opportunity. Visit type - Emergency Visit Emergency Visit: Yes ED Registration Date: 04/01/19 Care time: The patient presented to the Emergency Department on the above date and was hospitalized for further evaluation of their emergent condition. - New Patient This patient is new to me today: Yes Date on this admission: 04/02/19 - Critical Care Critical Care patient: Yes Total Critical Care Time (in minutes): 36 Critical Care Statement: The care of this patient involved high complexity decision making to prevent further life threatening deterioration of the patient 's condition and/or to evaluate & treat vital organ system(s) failure or risk of failure. ATTENDING PHYSICIAN STATEMENT I saw and evaluated the patient. I reviewed the resident's note and discussed the case with the resident. I agree with the resident's findings and plan as documented. SUBJECTIVE: OBJECTIVE: ASSESSMENT AND PLAN:
[2019-04-02] MEDS ORDERED: ACETAMINOPHEN 325 MG TABLET (FP) PO PRN ×3 (00:34→15:18)
[2019-04-02] MEDS ORDERED: ACETAMINOPHEN WITH CODEINE 300MG/30MG TABLET PO ONE (00:51)
[2019-04-02 00:59] VITALS: BMI 29.4
[2019-04-02 07:03] LABS: HEMATOCRIT 40.3 % (32.4-45.2); HEMOGLOBIN 13.9 GM/dL (10.7-15.3); MCH 31.6 pg (25.7-33.7); MCHC 34.4 g/dl (32.0-36.0); MEAN CELL VOLUME 91.6 fl (80-96); MEAN PLT VOLUME 7.4 fl (7.5-11.1); PLATELET COUNT 414 K/MM3 (134-434); WHITE BLOOD COUNT 9.4 K/mm3 (4.0-10.0)
[2019-04-02 07:36] LABS: ALBUMIN 3.6 g/dl (3.4-5.0); BILIRUBIN,TOTAL 0.6 mg/dL (0.2-1); BLOOD UREA NITROGEN 14.2 mg/dL (7-18); CALCIUM 8.8 mg/dL (8.5-10.1); CREATININE 0.8 mg/dL (0.55-1.3); POTASSIUM 4.3 mmol/L (3.5-5.1)
--- NOTE | 2019-04-02 07:47 | CONS ---
DATE OF CONSULTATION: 04/01/2019 CHIEF COMPLAINT: Right hemiparesis. HISTORY OF PRESENT ILLNESS: Patient is a 68-year-old right-handed female with history of complex migraine, asthma, diverticulitis, status post colectomy and thrombocytosis who had complained of chest pain yesterday with associated headache. She also had vertigo and blurry vision and right arm weakness initially. She comes to the emergency room today because of recurrent headache and right hand weakness, according to her daughter, who is a nurse practitioner. Presently, the patient has no chest pain or shortness of breath. She has no fevers or chills. She does experience intermittent facial numbness sometimes on the left and sometimes on the right. Today, she also complains of right shoulder pain to the right arm and forearm. PAST MEDICAL HISTORY: Significant for migraine headaches, asthma, diverticulitis, thrombocytosis. MEDICATIONS: None. ALLERGIES: LANSOPRAZOLE and METRONIDAZOLE. SOCIAL HISTORY: She does not smoke or drink. She lives at home. She is retired. FAMILY HISTORY: Positive for stroke in her siblings early in life as well as AML. REVIEW OF SYSTEMS: Otherwise negative for major constitutional, head, neck, cardiovascular, pulmonary, gastrointestinal, genitourinary, endocrinological, neurological, or psychological problems except for the above. PHYSICAL EXAMINATION: Vital Signs: Temperature 98.1, blood pressure 165/75, pulse rate 97, O2 saturation 98% on room air. HEENT: Shows her to be normocephalic, atraumatic, anicteric. Neck: Supple with no lymphadenopathy, no carotid bruits. Coronary: Demonstrates regular rhythm. Lungs: Clear bilaterally. Abdomen: Benign. She is mildly obese. Extremities: Shows no signs of DVT. She has right anterior knee scar from her prior knee surgery. Neurologic: She is awake, alert, oriented x4. Cranial nerve examination is intact 2-12 except for numbness right lower face to light touch. Motor examination shows 4/5 strength in her right upper and lower extremity. She has a positive right upper extremity drift. Sensory examination is intact to light touch in the left side; however, she has decreased light touch and pinprick as well as vibratory sensation in her right upper and lower extremity. Deep tendon reflexes are hyporeflexive throughout. There is no pathological or long-tract sign. Cerebellar examination demonstrates intact [id number] examination. LABORATORY EXAMINATION: Shows white blood cell count 11.2, hemoglobin 14.6, platelet count 465,000, INR 1.03. Serum sodium 137, potassium 4.3, BUN 14.5, creatinine 0.7, calcium 9.4. LFTs slightly elevated. Troponin less than 0.02. CT scan of the head demonstrated no fracture or mass affect or midline shift or hydrocephalus. There are a couple of tiny, oval hyperdensities in the left anterior frontal lobe in subcortical region. IMPRESSION: 1. Right hemiparesis, rule out left middle cerebral artery distribution ischemia. 2. Thrombocytosis. 3. Family history of acute myeloid leukemia and stroke. 4. Obesity/hypercholesterolemia. 5. Asthma. RECOMMENDATIONS: Patient presents with 1+-day history of diffuse headache and right-sided arm pain. She also has some numbness in her face periodically. Her pain recurred today, and on my examination, she has right hemiparesis with decreased sensation as well. This includes the right face. CT scan of the head only demonstrated a couple of small spots of oval-shaped hyperdensity in the left frontal white matter subcortical region. A STAT MRI of the brain is recommended to rule out acute ischemia. This should be done with diffusion weighed imaged as well. An aspirin is recommended at this time, and Neurology consultation is most appropriate for the patient's need at this point. Blood pressure should be monitored and controlled but not too tightly so as not to decrease the cerebral perfusion pressure too acutely. No anticonvulsant is recommended at this time. After the completion MRI, further treatment should be recommended by the on-call Neurology team. The above was discussed with the patient, her daughter as well as the emergency room team. All questions were answered. SY LATHAM M.D. [id number]
[2019-04-02] MEDS ORDERED: ACETAMINOPHEN 1000 MG/100 ML VIAL (NON FORMULARY) IVPB PRN ×2 (09:58→13:50)
[2019-04-02] MEDS ORDERED: ASPIRIN 81 MG CHEWABLE TABLETS PO SCH (10:00)
[2019-04-02] MEDS ORDERED: ENOXAPARIN NA (PORCINE) 40 MG/0.4 ML DISP.SYRIN SQ SCH (10:00)
--- NOTE | 2019-04-02 10:21 | PN ---
Teaching Attending Note Name of Resident: Hai Bernard ATTENDING PHYSICIAN STATEMENT I saw and evaluated the patient. I reviewed the resident's note and discussed the case with the resident. I agree with the resident's findings and plan as documented. SUBJECTIVE: Pt seen and examined in the ICU. c/o headache and right arm pain. Right sided hemiparesis persists. OBJECTIVE: Vital Signs Period Temp Pulse Resp BP Sys/Sterling Pulse Ox Last 24 Hr 97.6 F-98.1 F 73-97 - 121-165/52-75 98-99 Intake & Output 03/30/19 03/31/19 04/01/19 04/02/19 23:59 23:59 23:59 23:59 Intake Total 100 Balance 100 Weight 72.575 kg 77.655 kg Gen: NAD at rest Heart: RRR Lung: decreased breath sounds at the bases Abd: soft, nontender Ext: no edema CBC, BMP 04/02/19 06:39 04/02/19 06:39 Active Medications Acetaminophen (Tylenol -) 650 mg PO Q6H PRN PRN Reason: Fever Or Pain Acetaminophen (Ofirmev Injection -) 1,000 mg IVPB Q6H PRN PRN Reason: PAIN Last Admin: 04/02/19 10:09 Dose: 1,000 mg Aspirin (Asa -) 81 mg PO DAILY [facility] Last Admin: 04/02/19 09:53 Dose: 81 mg Enoxaparin Sodium (Lovenox -) 40 mg SQ DAILY [facility] Last Admin: 04/02/19 10:10 Dose: 40 mg ASSESSMENT AND PLAN: Acute CVA Hypercholesterolemia Asthma h/o Diverticulitis Morbid Obesity Migraines - ASA - neuro checks - f/u official MRI/MRA report - neuro eval - not on statin due to history of rhabdo - echocardiogram - carotid dopplers - rehab/PT - DVT prophylaxis - can monitor on stroke unit
--- NOTE | 2019-04-02 11:48 | CON.CARD ---
Consult Consult Specialty:: Cardiology Referred by:: Dr. Montejo Reason for Consultation:: Cardiac evaluation - History of Present Illness Chief Complaint: Dizziness and right sided weakness History of Present Illness: Patient is a 68 year old female with underlying history of pre-diabetes mellitus , bronchial asthma, thrombocytosis, migraines, hypercholesterolemia refused to take statin therapy as outpatient, diverticulosis s/p sigmoid colectomy with history of SBOs and osteoarthritis who presented with chest pain and right sided weakness and discomfort. Head CT revealed left side frontal hyperdense lesion. MRI of the brain revealed small left chronic frontal infarct with ischemic changes in the white matter. She still has weakness of right arm extending from right shoulder down to her fingers and right leg but is able to move them. She denies shortness of breath or palpitations. She denies paroxysmal nocturnal dyspnea or orthopnea. She denies fever or chills. She denies nausea, vomiting, diarrhea or abdominal pain. She complains of headache and lightheadedness. Monitor reveals sinus rhythm. 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, Other (Headache) Cardio/Vascular: Yes: Hyperlipdemia Pulmonary: Yes: Asthma Gastrointestinal: Yes: Constipation, Diverticulitis, Other (bowel obstruction ) Musculoskeletal: Yes: Chronic low back pain, Osteoarthritis - Past Surgical History Past Surgical History: Yes: Colectomy (elective laparoscopic sigmoidectomy) Additional Surgical History: Knee surgery - Alcohol/Substance Use Hx Alcohol Use: No History of Substance Use: reports: None - Smoking History Smoking history: Former smoker Have you smoked in the past 12 months: No Aproximately how many cigarettes per day: 0 - Social History History of Recent Travel: No Home Medications - Allergies Allergies/Adverse Reactions: Allergies Allergy/AdvReac Type Severity Reaction Status Date / Time lansoprazole [From Prevacid] Allergy Severe Swelling Verified 02/18/15 08:06 metronidazole [From Flagyl] AdvReac Intermediate Vomiting Verified 02/18/15 08: 06 - Home Medications Home Medications: Ambulatory Orders Loratadine 10 mg PO PRN PRN 08/16/18 Family Medical History Family Hx Cardiac Disorders: Father Other Family History: Leukemia Review of Systems - Review of Systems Constitutional: denies: Chills, Fever Cardiovascular: reports: Chest Pain. denies: Palpitations, Shortness of Breath Respiratory: denies: Cough, Hemoptysis, Orthopnea, PND, SOB, SOB on Exertion Gastrointestinal: denies: Abdominal Pain, Constipation, Diarrhea, Melena, Nausea , Rectal Bleeding, Vomiting Neurological: reports: Dizziness, Headache. denies: Seizure, Syncope Vital Signs: Vital Signs Temperature 97.4 F L 04/02/19 10:00 Pulse Rate 76 04/02/19 10:00 Respiratory Rate 21 H 04/02/19 10:00 Blood Pressure 134/66 04/02/19 10:00 O2 Sat by Pulse Oximetry (%) 99 04/02/19 08:48 Eyes: Yes: PERRL HENT: Yes: Atraumatic Neck: Yes: Supple Respiratory: Yes: CTA Bilaterally Gastrointestinal: Yes: Normal Bowel Sounds, Soft. No: Tenderness Cardiovascular: Yes: Regular Rate and Rhythm JVD: No PMI: Non-Displaced Heart Sounds: Yes: S1, S2. No: Gallop Edema: No - Other Data Labs, Other Data: CBC, BMP 04/02/19 06:39 04/02/19 06:39 INR, PTT INR 1.03 (0.83-1.09) 04/01/19 16:12 Troponin, BNP 04/01/19 04/01/19 04/01/19 16:12 16:12 23:24 Troponin I < 0.02 < 0.02 B-Natriuretic Peptide 18.0 Sinus rhythm Imaging - Results Chest X-ray: Report Reviewed (Unremarkable) Cat Scan: Report Reviewed (Head CT) MRI: Report Reviewed (Brain MRI) EKG: Report Reviewed Problem List - Problems (1) Acute cerebrovascular accident (CVA) Code(s): I63.9 - CEREBRAL INFARCTION, UNSPECIFIED (2) Chest pain Code(s): R07.9 - CHEST PAIN, UNSPECIFIED Qualifiers: Chest pain type: unspecified Qualified Code(s): R07.9 - Chest pain, unspecified (3) Right facial numbness Code(s): R20.0 - ANESTHESIA OF SKIN (4) Right-sided muscle weakness Code(s): M62.81 - MUSCLE WEAKNESS (GENERALIZED) (5) Diverticulitis large intestine Code(s): K57.32 - DVTRCLI OF LG INT W/O PERFORATION OR ABSCESS W/O BLEEDING Qualifiers: Diverticulitis bleeding: without bleeding Diverticulitis complication: without perforation or abscess Qualified Code(s): K57.32 - Diverticulitis of large intestine without perforation or abscess without bleeding (6) Hypercholesteremia Code(s): E78.00 - PURE HYPERCHOLESTEROLEMIA, UNSPECIFIED (7) Pre-diabetes Code(s): R73.03 - PREDIABETES Assessment/Plan 1. Acute CVA with residual right side deficit and dizziness 2. Hypercholesterolemia 3. Migraines 4. Bronchial asthma 5. History of diverticulitis and SBO PLAN: 1. Continue ASA 2. DVT prophylaxis 3. Consider statin therapy, but check fasting lipid panel 4. Neurology evaluation to follow 5. Echocardiography to assess LV/RV and valvular function 6. Patient does not have evidence of atrial fibrillation but extended heart monitoring may be indicated as outpatient. Further plans are to follow Felix Elkins MD
--- NOTE | 2019-04-02 12:48 | PN ---
Physical Exam: SUBJECTIVE: Patient seen and examined AT BEDSIDE. MRA was not able to be done with contrast. Pt c/o unilateral weakness. OBJECTIVE: Vital Signs Period Temp Pulse Resp BP Sys/Sterling Pulse Ox Last 24 Hr 97.4 F-98.1 F 73-97 15-21 121-165/52-75 98-99 GENERAL: The patient is awake, alert, and fully oriented, in mild acute distress due to pt's new symptoms. HEAD: Normal with no signs of trauma. NECK: supple. LUNGS: Breath sounds equal, clear to auscultation bilaterally, no wheezes, no crackles, no accessory muscle use. HEART: Regular rate and rhythm, S1, S2 without murmur, rub or gallop. ABDOMEN: Soft, nontender, nondistended EXTREMITIES: warm, well-perfused, no edema. NEUROLOGICAL: finger to nose abnormal on rt side, rt hemiparesis 2/5 compared to 5/5 on left side, impaired sensationon rt side of body, numbness in face, pt able to hold up b/l upper and lower extremities for >10 and 5 seconds respectively. PSYCH: Normal mood, normal affect. Laboratory Results - last 24 hr 04/01/19 04/01/19 04/01/19 16:12 16:12 16:12 WBC 11.2 H RBC 4.77 Hgb 14.6 Hct 43.8 MCV 91.8 MCH 30.6 MCHC 33.4 RDW 13.6 Plt Count 465 H MPV 7.3 L Absolute Neuts (auto) 7.5 Neutrophils % 66.6 D Lymphocytes % 25.9 D Monocytes % 5.9 Eosinophils % 0.8 Basophils % 0.8 D Nucleated RBC % 0 PT with INR INR Sodium 137 Potassium 4.3 Chloride 104 Carbon Dioxide 25 Anion Gap 9 BUN 14.5 Creatinine 0.7 Est GFR (CKD-EPI)AfAm 101.74 Est GFR (CKD-EPI)NonAf 87.78 Random Glucose 109 H Calcium 9.4 Total Bilirubin 0.4 AST 39 H ALT 90 H Alkaline Phosphatase 126 H Creatine Kinase 58 Creatine Kinase Index CK-MB (CK-2) Troponin I < 0.02 B-Natriuretic Peptide 18.0 Total Protein 7.7 Albumin 4.0 Triglycerides Cholesterol Total LDL Cholesterol HDL Cholesterol TSH Free T4 04/01/19 04/01/19 04/02/19 16:12 23:24 06:39 WBC 9.4 RBC 4.40 Hgb 13.9 Hct 40.3 MCV 91.6 MCH 31.6 MCHC 34.4 RDW 14.0 Plt Count 414 MPV 7.4 L Absolute Neuts (auto) Neutrophils % Lymphocytes % Monocytes % Eosinophils % Basophils % Nucleated RBC % PT with INR 12.20 INR 1.03 Sodium Potassium Chloride Carbon Dioxide Anion Gap BUN Creatinine Est GFR (CKD-EPI)AfAm Est GFR (CKD-EPI)NonAf Random Glucose Calcium Total Bilirubin AST ALT Alkaline Phosphatase Creatine Kinase 228 H Creatine Kinase Index No Result Required. CK-MB (CK-2) < 1.0 Troponin I < 0.02 B-Natriuretic Peptide Total Protein Albumin Triglycerides Cholesterol Total LDL Cholesterol HDL Cholesterol TSH Free T4 04/02/19 06:39 WBC RBC Hgb Hct MCV MCH MCHC RDW Plt Count MPV Absolute Neuts (auto) Neutrophils % Lymphocytes % Monocytes % Eosinophils % Basophils % Nucleated RBC % PT with INR INR Sodium 138 Potassium 4.3 Chloride 104 Carbon Dioxide 25 Anion Gap 9 BUN 14.2 Creatinine 0.8 Est GFR (CKD-EPI)AfAm 86.57 Est GFR (CKD-EPI)NonAf 74.70 Random Glucose 129 H Calcium 8.8 Total Bilirubin 0.6 AST 39 H ALT 82 H Alkaline Phosphatase 112 Creatine Kinase Creatine Kinase Index CK-MB (CK-2) Troponin I B-Natriuretic Peptide Total Protein 7.0 Albumin 3.6 Triglycerides 186 H Cholesterol 239 H Total LDL Cholesterol 167 H HDL Cholesterol 45 TSH 4.39 H Free T4 0.96 Active Medications Generic Name Dose Route Start Last Admin Trade Name Freq PRN Reason Stop Dose Admin Acetaminophen 650 mg 04/02/19 00:34 Tylenol - PO Q6H PRN Fever Or Pain Acetaminophen 1,000 mg 04/02/19 09:58 04/02/19 10:09 Ofirmev Injection - IVPB 1,000 mg Q6H PRN Administration PAIN Aspirin 81 mg 04/02/19 10:00 04/02/19 09:53 Asa - PO 81 mg DAILY JOHANN Administration Enoxaparin Sodium 40 mg 04/02/19 10:00 04/02/19 10:10 Lovenox - SQ 40 mg DAILY JOHANN Administration ASSESSMENT/PLAN: -CT head showing: L anterior frontal white matter small oval hyperdensity x2; no edema or shift -MRI nighthawk: No acute infarction, hemorrhage, or space occupying brain mass is seen. There are mild white matter hyperdensities which may represent small vessel ischemic change. Arteries of the [place] show no major branch occlusion or aneurysm. There is irregularity of both MCA L> R compatible with atherosclerotic disease. 68 yo F w/ PMH obesity, pre-diabetes, asthma, thrombocytosis,migraines, hypercholeterolemia, diverticulitis (s/p one stage sigmoidcolectomy), s/p right knee partial arthoplasty at [facility], multiple SBOs presented to the hospital for chest pain and right sided weakness. Pt is admitted to ICU for TIA vs acute hemorrhagic stroke. Neuro: Ischemic stroke confirmed -AAOx3 -neuro follow up - C/W Asa -Neurosurgery recs appreciated ( Dr. Albright), no acute surgical intervention at this time. MRI w/o contrast C spine ordered. - pt occasionally takes percocet 2.5 mg for chronic pain. pt is refusing tylenol. cannot give advil 2/2 possible acute hemorrhage . avoid opiates Cardio: chest pain r/o ACS; hypercholesterolemia -orthostatic negative -continue tele monitoring -trops neg x 2 -EKG reviewed, NSR no ST changes - Cardio recs consider statin but holding it due to hx of rhabdo. -awaiting lipid panel - c/w ASA - follow up echo and carotid Pulm: Asthma -uses Breo inhaler at home and albuterol prn -c/w albuterol prn Endo: pre-diabetes -awaiting TFTs -monitor Glucose Heme: thrombocytosis -plt's normal today -pt has family history of leukemia -continue to monitor outpt F/E/N -monitor lytes DVT ppx: started lovenox 40 daily SQ Dispo: Patient has been transferred to the stroke floor. Thank you for this consultative opportunity. Visit type - Emergency Visit Emergency Visit: Yes ED Registration Date: 04/01/19 Care time: The patient presented to the Emergency Department on the above date and was hospitalized for further evaluation of their emergent condition. - New Patient This patient is new to me today: No - Critical Care Critical Care patient: Yes - Discharge Referral Referred to [facility] Med P.C.: Yes ATTENDING PHYSICIAN STATEMENT I saw and evaluated the patient. I reviewed the resident's note and discussed the case with the resident. I agree with the resident's findings and plan as documented. SUBJECTIVE: OBJECTIVE: ASSESSMENT AND PLAN:
--- NOTE | 2019-04-02 12:49 | PN ---
Progress Note (short form) - Note Progress Note: NEUROSURGERY H/o asthma, complex migraines, diverticulitis (s/p colon resection in 2010) and thrombocytosis c/o chest pain, vertigo, blurry vision, R arm weakness initially yesterday; symptoms improved spontaneously but worsened today again in terms of diffuse h/a, blurriness and nausea, and R arm pain. Currently, pt denies chest pain or SOB, fever or chills. H/a better but present. Occ alternating facial numbness.; also c/o R shoulder pain to arm/forearm which persists In ICU PE: 97.4, 136/70, VSS HEENT- NC/AT; neck- supple, no bruit; Cor- RR; Lungs- CTA; Abd- benign, mildly obese; Ext- no sign of DVT CN- mild R lower facial numbness to LT/PP; Motor- R D/B/BR/T/I 4/5, R LE 4+-5 ( improved) ; no further drift; Sensation- decreased LT/PP/vibration R UE > LE; Cerebellar intact FTN B Head CT- L anterior frontal white matter small oval hyperdensity x2; no edema or shift Brain MRI- no acute ischemia, small L frontal chronic ischemia and periventricular gliosis Neurology consult for management and w/u ASA No neurosurgical intervention indicated at this time Cardiology input noted Monitor neuro status MRI C spine Condition and possible tx d/w pt, ICU team
--- NOTE | 2019-04-02 14:25 | PN ---
Progress Note, Physician History of Present Illness: Pt with right hand and leg weakness, able to walk alone. Pt w/o dizziness, CP, palpitations, abd pain, chocking when eating. + GUERRA Pt wants a different statin than Lipitor as gave her muscle cramps (none last night). - Current Medication List Current Medications: Active Medications Acetaminophen (Tylenol -) 650 mg PO Q6H PRN PRN Reason: Fever Or Pain Acetaminophen (Ofirmev Injection -) 1,000 mg IVPB Q6H PRN PRN Reason: PAIN Aspirin (Asa -) 81 mg PO DAILY JOHANN Enoxaparin Sodium (Lovenox -) 40 mg SQ DAILY JOHANN - Objective Vital Signs: Vital Signs Temperature 97.4 F L 04/02/19 10:00 Pulse Rate 80 04/02/19 12:00 Respiratory Rate 18 04/02/19 12:00 Blood Pressure 136/70 04/02/19 12:00 O2 Sat by Pulse Oximetry (%) 99 04/02/19 08:48 Constitutional: Yes: No Distress, Calm Cardiovascular: Yes: Regular Rate and Rhythm, S1, S2 Respiratory: Yes: Regular, CTA Bilaterally. No: Rales Gastrointestinal: Yes: Normal Bowel Sounds, Soft, Tenderness Edema: No Neurological: Yes: Alert, Oriented, Other (Decrease motor in UE (4/5) and LE (4- 5/5), otherwise 5/5) Labs: CBC, BMP 04/02/19 06:39 04/02/19 06:39 INR, PTT INR 1.03 (0.83-1.09) 04/01/19 16:12 Problem List - Problems (1) Acute cerebrovascular accident (CVA) Code(s): I63.9 - CEREBRAL INFARCTION, UNSPECIFIED (2) Hypercholesteremia Code(s): E78.00 - PURE HYPERCHOLESTEROLEMIA, UNSPECIFIED Assessment/Plan Admitted to monitor bed NeuroSX, Cardio consults are appreciated. Pt scheduled for C-spine MRI Neuro consult Neurochecks. Trial of Fioricet (PRN for GUERRA) Trial of Crestor (for HLD) Prognosis is reserved
[2019-04-02] MEDS ORDERED: ALPRAZolam 1 MG TABLET PO ONE (15:21)
[2019-04-02] MEDS ORDERED: LORazepam 2 MG/ML SDV VIAL IVPUSH ONE (15:43)
[2019-04-02] MEDS ORDERED: FLU VACCINE QUAD 60 MCG/0.5 ML (MDV 19-20) IM ONE (16:30)
[2019-04-02] MEDS: ACETAMINOPHEN/CAFFEINE/BUTALBITAL 1 TAB PO PRN (18:16)
--- NOTE | 2019-04-02 18:21 | CON.NEURO ---
Consult Consult Specialty:: NEUROLOGY-LEROY VASQUEZ - History of Present Illness History of Present Illness: Pt with known hyperlipidemia (self DC'ed statin) in [facility] untill last night when developed right side CP on and off w/o associated symptoms (no palpitations, SOB , dizziness). This AM around 5 AM pt woke up with right shoulder and arm pain, blurry vision, associated on and off with dizziness, w/o CP or palpitations or SOB or motor weakness. In the afternoon she decided to come to ER where was found to have weakness and decreased sensation of the right arm and leg. History Source: Patient, Family Member (daughter at the bedside.) Reports x years has had migraine with entie right sided [id number] times left side0 for which she was receiving prophylactic Botox x years, last one in 07/24. She denies RLE weakness upon this admission, conts to describe right arm weakness/numbness. Pain in right chest has resolved. MRI brain- without acute event reported, does notr bear out the report of" punctate hemorrhages" on CT head report. - Past Medical History [employer]: Yes: Migraine, Other (Headache) Cardio/Vascular: Yes: Hyperlipdemia Pulmonary: Yes: Asthma Gastrointestinal: Yes: Constipation, Diverticulitis, Other (bowel obstruction ) Musculoskeletal: Yes: Chronic low back pain, Osteoarthritis - Past Surgical History Past Surgical History: Yes: Colectomy (elective laparoscopic sigmoidectomy) Additional Surgical History: Knee surgery - Alcohol/Substance Use Hx Alcohol Use: No History of Substance Use: reports: None - Smoking History Smoking history: Former smoker Have you smoked in the past 12 months: No Aproximately how many cigarettes per day: 0 - Social History History of Recent Travel: No Home Medications - Allergies Allergies/Adverse Reactions: Allergies Allergy/AdvReac Type Severity Reaction Status Date / Time lansoprazole [From Prevacid] Allergy Severe Swelling Verified 02/18/15 08:06 metronidazole [From Flagyl] AdvReac Intermediate Vomiting Verified 02/18/15 08: 06 - Home Medications Home Medications: Ambulatory Orders Loratadine 10 mg PO PRN PRN 08/16/18 Physical Exam-Neuro Vital Signs: Vital Signs Temperature 97.7 F 04/02/19 14:35 Pulse Rate 76 04/02/19 14:35 Respiratory Rate 17 04/02/19 14:35 Blood Pressure 134/67 04/02/19 14:35 O2 Sat by Pulse Oximetry (%) 99 04/02/19 08:48 Labs: CBC, BMP 04/02/19 06:39 04/02/19 06:39 INR, PTT INR 1.03 (0.83-1.09) 04/01/19 16:12 - Neuro Exam Level Of Consciousness: Yes: Alert, Oriented to Person, Oriented to Place, Oriented to Time Eyes: Yes: ARIEL Speech: WNL Dominant Hand: Right Mini Mental Exam: Intact Cranial Nerves II-XII Intact: Yes (No facial droop noted) DTR's: 0 Right Bicep, 0 Left Tricep (left triceps trace present only), 0 Right Brachioradialis, 1+ Left Achilles, 1+ Right Achilles, 2+ Left Bicep, 2+ Right Tricep, 2+ Left Brachioradialis Response to light touch: Abnormal (diminished in right forearm-C6 and C7 distribution) Motor Strength: 4/5: Right Arm (Right Deltoid- 5-/5, biceps and hand shoe cleaner-4/5, triceps- 5-/5), 5/5: Left Arm, Right Leg Gait: Normal Assessment/Plan Pt. with chronic migraine(has her typical GUERRA with photophobia) x days, now with right arm weakness and resolved chest pain. The distribution of RUE weakness is that of lower motor neuron type possibly 2/2 involvement of C5/6/7 nerve roots. DDX includes brachial neuritis(even though no recent hx. of URI), mechanical cervical nerve root compression. Polly eveid of infection clinically. Suggest: Await MRI Cspine report empirically Decadron with PPI-to target possible brachial neuritis, cervical nerve rot region edema. d/w Dr. Montejo. will follow. Thank you, Helen Holley MD
[2019-04-02] MEDS: MELATONIN 5 MG TABLETS PO PRN (21:29)
[2019-04-02] MEDS: DEXAMETHASONE SOD PHOSPHATE 4 MG/1 ML VIAL IVPUSH SCH (21:29)
[2019-04-03] MEDS: ROSUVASTATIN CA 10 MG TABLET (FP) PO SCH ×2 (00:26→22:56)
[2019-04-03] MEDS: ACETAMINOPHEN/CAFFEINE/BUTALBITAL 1 TAB PO PRN ×3 (00:44→22:55)
[2019-04-03] MEDS: DEXAMETHASONE SOD PHOSPHATE 4 MG/1 ML VIAL IVPUSH SCH ×3 (03:43→15:01)
--- NOTE | 2019-04-03 08:41 | PN ---
Progress Note, Physician Chief Complaint: Complains of headache, right upper extremity pain and intermittent dizziness History of Present Illness: Patient was seen and examined. Awake and alert. Chart was reviewed Denies chest pain, SOB or palpitations - Current Medication List Current Medications: Active Medications Acetaminophen (Tylenol -) 650 mg PO Q6H PRN PRN Reason: HEADACHE- PAIN LEVEL 1-5 Acetaminophen/Butalbital/Caffeine (Fioricet -) 1 tablet PO Q6H PRN PRN Reason: HEADACHE-PAIN LEVEL 6-10 Last Admin: 04/03/19 00:44 Dose: 1 tablet Aspirin (Asa -) 81 mg PO DAILY JOHANN Dexamethasone Sodium Phosphate (Decadron Injection -) 4 mg IVPUSH Q6H-IV JOHANN Last Admin: 04/03/19 03:43 Dose: 4 mg Enoxaparin Sodium (Lovenox -) 40 mg SQ DAILY JOHANN Melatonin (Melatonin) 10 mg PO HS PRN PRN Reason: INSOMNIA Last Admin: 04/02/19 21:29 Dose: 10 mg Rosuvastatin Calcium (Crestor -) 10 mg PO HS JOHANN Last Admin: 04/03/19 00:26 Dose: 10 mg - Objective Vital Signs: Vital Signs Temperature 97.6 F 04/02/19 20:30 Pulse Rate 72 04/03/19 00:00 Respiratory Rate 20 04/03/19 00:00 Blood Pressure 124/72 04/03/19 00:00 O2 Sat by Pulse Oximetry (%) 96 04/02/19 20:31 Eyes: Yes: PERRL HENT: Yes: Atraumatic Neck: Yes: Supple Cardiovascular: Yes: Regular Rate and Rhythm, S1, S2 Respiratory: Yes: CTA Bilaterally Gastrointestinal: Yes: Normal Bowel Sounds, Soft. No: Tenderness Edema: No Additional Findings/Remarks: - Review of Systems Constitutional: denies: Chills, Fever Cardiovascular: reports: Chest Pain. denies: Palpitations, Shortness of Breath Respiratory: denies: Cough, Hemoptysis, Orthopnea, PND, SOB, SOB on Exertion Gastrointestinal: denies: Abdominal Pain, Constipation, Diarrhea, Melena, Nausea , Rectal Bleeding, Vomiting Neurological: reports: Dizziness, Headache. denies: Seizure, Syncope Labs: CBC, BMP 04/02/19 06:39 04/02/19 06:39 Problem List - Problems (1) Acute cerebrovascular accident (CVA) Code(s): I63.9 - CEREBRAL INFARCTION, UNSPECIFIED (2) Chest pain Code(s): R07.9 - CHEST PAIN, UNSPECIFIED Qualifiers: Chest pain type: unspecified Qualified Code(s): R07.9 - Chest pain, unspecified (3) Right facial numbness Code(s): R20.0 - ANESTHESIA OF SKIN (4) Right-sided muscle weakness Code(s): M62.81 - MUSCLE WEAKNESS (GENERALIZED) (5) Diverticulitis large intestine Code(s): K57.32 - DVTRCLI OF LG INT W/O PERFORATION OR ABSCESS W/O BLEEDING Qualifiers: Diverticulitis bleeding: without bleeding Diverticulitis complication: without perforation or abscess Qualified Code(s): K57.32 - Diverticulitis of large intestine without perforation or abscess without bleeding (6) Hypercholesteremia Code(s): E78.00 - PURE HYPERCHOLESTEROLEMIA, UNSPECIFIED (7) Pre-diabetes Code(s): R73.03 - PREDIABETES Assessment/Plan 1. Acute CVA with residual right side deficit and dizziness 2. Hypercholesterolemia 3. Migraines 4. Bronchial asthma 5. History of diverticulitis and SBO PLAN: 1. Continue ASA 2. DVT prophylaxis 3. Continue statin therapy. Lipid panel reviewed with high LDL 4. Neurology input noted 5. Echocardiography to assess LV/RV and valvular function 6. Patient does not have evidence of atrial fibrillation but extended heart monitoring may be indicated as outpatient. 7. Continue pain management Further plans are to follow Felix Elkins MD
[2019-04-03] MEDS: ENOXAPARIN NA (PORCINE) 40 MG/0.4 ML DISP.SYRIN SQ SCH (09:01)
[2019-04-03] MEDS: ASPIRIN 81 MG CHEWABLE TABLETS PO SCH (09:01)
--- NOTE | 2019-04-03 09:53 | PN ---
Progress Note (short form) - Note Progress Note: NEUROSURGERY Denies chest pain or SOB, fever or chills. H/a severe overnight and R facial numbness. Also c/o R shoulder pain to arm/forearm which persists; Did not tolerate neurontin or lyrica well previously In tele PE: 97.4, 136/70, VSS HEENT- NC/AT; neck- supple, no bruit; Cor- RR; Lungs- CTA; Abd- benign, mildly obese; Ext- no sign of DVT CN- mild R lower facial numbness to LT/PP; Motor- R D/B/BR/T/I 4/5, R LE 4+-5 ( improved) ; no further drift; Sensation- decreased LT/PP/vibration R UE > LE; Cerebellar intact FTN B Head CT- L anterior frontal white matter small oval hyperdensity x2; no edema or shift Brain MRI- no acute ischemia, small L frontal chronic ischemia and periventricular gliosis C spine MRI (prelim)- mild broad C3-4 disc bulge; L > R C5-6 disc bulge with mild thecal sac impingement, no cord compression Neurology w/u ASA No neurosurgical intervention indicated at this time, doubt C spine MRI findings causing pt's R sided symptoms Cardiology input noted Monitor neuro status On steroid per neurology recommendations Condition and possible tx d/w pt Change to Cymbalta
[2019-04-03 11:17] LABS: HEMATOCRIT 43.9 % (32.4-45.2); MCH 31.3 pg (25.7-33.7); MCHC 34.2 g/dl (32.0-36.0); MEAN CELL VOLUME 91.5 fl (80-96); MEAN PLT VOLUME 7.7 fl (7.5-11.1); PLATELET COUNT 511 K/MM3 (134-434); RDW 13.5 % (11.6-15.6); WHITE BLOOD COUNT 9.4 K/mm3 (4.0-10.0)
[2019-04-03 11:44] LABS: ALBUMIN 3.9 g/dl (3.4-5.0); BILIRUBIN,TOTAL 0.4 mg/dL (0.2-1); BLOOD UREA NITROGEN 14.9 mg/dL (7-18); CALCIUM 9.6 mg/dL (8.5-10.1); CREATININE 0.9 mg/dL (0.55-1.3); MAGNESIUM 2.2 mg/dL (1.8-2.4); PHOSPHOROUS 3.3 mg/dL (2.5-4.9); POTASSIUM 4.3 mmol/L (3.5-5.1)
--- NOTE | 2019-04-03 12:17 | PN ---
Progress Note, Physician History of Present Illness: Ms. Haney reports some improvement in strength, she confirms radiofrequency rx. to Cspine 2 weeks ago. Exam: improved right biceps/triceps strength-5-/5 today. Remains with right hand diminished touch sensation. C spine MRI (prelim)- mild broad C3-4 disc bulge; L > R C5-6 disc bulge with mild thecal sac impingement, no cord compression A/P: likely cervical root C6/7 region edema post procedure. Suggest: cont steroids, can switch to oral Prednisone 40mg daily to be tapered off over 5 days. - Current Medication List Current Medications: Active Medications Acetaminophen (Tylenol -) 650 mg PO Q6H PRN PRN Reason: HEADACHE- PAIN LEVEL 1-5 Acetaminophen/Butalbital/Caffeine (Fioricet -) 1 tablet PO Q6H PRN PRN Reason: HEADACHE-PAIN LEVEL 6-10 Last Admin: 04/03/19 00:44 Dose: 1 tablet Aspirin (Asa -) 81 mg PO DAILY JOHANN Last Admin: 04/03/19 09:01 Dose: 81 mg Dexamethasone Sodium Phosphate (Decadron Injection -) 4 mg IVPUSH Q6H-IV JOHANN Last Admin: 04/03/19 08:52 Dose: 4 mg Duloxetine HCl (Cymbalta -) 30 mg PO DAILY JOHANN Enoxaparin Sodium (Lovenox -) 40 mg SQ DAILY JOHANN Last Admin: 04/03/19 09:01 Dose: 40 mg Melatonin (Melatonin) 10 mg PO HS PRN PRN Reason: INSOMNIA Last Admin: 04/02/19 21:29 Dose: 10 mg Rosuvastatin Calcium (Crestor -) 10 mg PO HS JOHANN Last Admin: 04/03/19 00:26 Dose: 10 mg - Objective Vital Signs: Vital Signs Temperature 98.6 F 04/03/19 08:00 Pulse Rate 89 04/03/19 08:00 Respiratory Rate 18 04/03/19 08:58 Blood Pressure 137/76 04/03/19 08:00 O2 Sat by Pulse Oximetry (%) 96 04/03/19 08:58 Labs: CBC, BMP 04/03/19 10:55 04/03/19 10:55 INR, PTT INR 1.03 (0.83-1.09) 04/01/19 16:12
[2019-04-03] MEDS: DULoxetine HCL 30 MG CAPSULE.DR PO SCH (12:37)
--- NOTE | 2019-04-03 14:44 | PN ---
Progress Note, Physician Chief Complaint: walked in hallway, pt reports more strenght and less GUERRA and less facial and RUE numbness - Current Medication List Current Medications: Active Medications Acetaminophen (Tylenol -) 650 mg PO Q6H PRN PRN Reason: HEADACHE- PAIN LEVEL 1-5 Acetaminophen/Butalbital/Caffeine (Fioricet -) 1 tablet PO Q6H PRN PRN Reason: HEADACHE-PAIN LEVEL 6-10 Last Admin: 04/03/19 00:44 Dose: 1 tablet Aspirin (Asa -) 81 mg PO DAILY [facility] Last Admin: 04/03/19 09:01 Dose: 81 mg Dexamethasone Sodium Phosphate (Decadron Injection -) 4 mg IVPUSH Q6H-IV [facility] Last Admin: 04/03/19 08:52 Dose: 4 mg Duloxetine HCl (Cymbalta -) 30 mg PO DAILY [facility] Last Admin: 04/03/19 12:37 Dose: 30 mg Enoxaparin Sodium (Lovenox -) 40 mg SQ DAILY [facility] Last Admin: 04/03/19 09:01 Dose: 40 mg Melatonin (Melatonin) 10 mg PO HS PRN PRN Reason: INSOMNIA Last Admin: 04/02/19 21:29 Dose: 10 mg Rosuvastatin Calcium (Crestor -) 10 mg PO HS [facility] Last Admin: 04/03/19 00:26 Dose: 10 mg - Objective Vital Signs: Vital Signs Temperature 98.6 F 04/03/19 08:00 Pulse Rate 89 04/03/19 08:00 Respiratory Rate 18 04/03/19 08:58 Blood Pressure 137/76 04/03/19 08:00 O2 Sat by Pulse Oximetry (%) 96 04/03/19 08:58 Constitutional: Yes: No Distress, Calm Eyes: Yes: Conjunctiva Clear HENT: Yes: Atraumatic Neck: Yes: Supple Cardiovascular: Yes: Regular Rate and Rhythm Respiratory: Yes: CTA Bilaterally Gastrointestinal: Yes: Soft. No: Tenderness Genitourinary: No: Hematuria Musculoskeletal: No: Joint Stiffness, Joint Swelling Extremities: No: Cold, Cool Edema: No Integumentary: No: Rash, Venous Stasis Changes Neurological: Yes: WNL, Alert, Oriented ...Motor Strength: WNL Psychiatric: Yes: WNL, Alert, Oriented. No: Agitated, Suicidal Ideation Labs: CBC, BMP 04/03/19 10:55 04/03/19 10:55 INR, PTT INR 1.03 (0.83-1.09) 04/01/19 16:12 - ....Imaging Other: Report Reviewed Assessment/Plan 68 YOF h/o migraines, seasonal allergies and asthma admitted with GUERRA R face and RUE numbness (not her usual migraine episode) consults, tests, meds and chart reviewed and d/w pt switch to po steroids per neurology; pt asked for second opinion for neurology to help her clarify her diagnosis and management; also she asked if she should have brain MRI with IVC - will d/w neurology falls pfx; d/w pt and staff
[2019-04-03] MEDS ORDERED: LORazepam 1 MG TABLET PO ONE (16:47)
--- NOTE | 2019-04-03 16:56 | EKG ---
Test Reason : Blood Pressure : / mmHG Vent. Rate : 096 BPM Atrial Rate : 096 BPM P-R Int : 130 ms QRS Dur : 072 ms QT Int : 332 ms P-R-T Axes : 063 041 039 degrees QTc Int : 419 ms NORMAL SINUS RHYTHM NONSPECIFIC ST ABNORMALITY ABNORMAL ECG WHEN COMPARED WITH ECG OF 15-AUG-2018 19:58, NO SIGNIFICANT CHANGE WAS FOUND Confirmed by HARVEY PAVON MD ([id number]) on 04/03/2019 4:55:58 PM Referred By: Confirmed By:HARVEY PAVON MD
[2019-04-03] MEDS ORDERED: POLYETHYLENE GLYCOL 3350 119 GM BTL PO PRN (21:40)
[2019-04-03] MEDS: BUDESONIDE/FORMETEROL FUMARATE 80/4.5 mcg INHALER IH SCH (22:53)
[2019-04-04] MEDS: MELATONIN 5 MG TABLETS PO PRN (02:15)
[2019-04-04] MEDS ORDERED: SODIUM CHLORIDE 1,000 ML IV SCH (09:00)
[2019-04-04] MEDS: BUDESONIDE/FORMETEROL FUMARATE 80/4.5 mcg INHALER IH SCH (09:17)
[2019-04-04] MEDS: ASPIRIN 81 MG CHEWABLE TABLETS PO SCH (09:18)
[2019-04-04] MEDS: ENOXAPARIN NA (PORCINE) 40 MG/0.4 ML DISP.SYRIN SQ SCH (09:18)
[2019-04-04] MEDS: predniSONE 20 MG TABLET (UD) PO SCH ×3 (09:18→09:25)
[2019-04-04] MEDS: DULoxetine HCL 30 MG CAPSULE.DR PO SCH (09:18)
--- NOTE | 2019-04-04 09:38 | PN ---
Progress Note, Physician Chief Complaint: Complains of headache, right upper extremity pain and intermittent dizziness improved History of Present Illness: Patient was seen and examined. Awake and alert. Chart was reviewed Denies chest pain, SOB or palpitations - Current Medication List Current Medications: Active Medications Acetaminophen (Tylenol -) 650 mg PO Q6H PRN PRN Reason: HEADACHE- PAIN LEVEL 1-5 Acetaminophen/Butalbital/Caffeine (Fioricet -) 1 tablet PO Q6H PRN PRN Reason: HEADACHE-PAIN LEVEL 6-10 Last Admin: 04/03/19 22:55 Dose: 1 tablet Aspirin (Asa -) 81 mg PO DAILY [facility] Last Admin: 04/04/19 09:18 Dose: 81 mg Budesonide/Formoterol Fumarate (Symbicort 80/4.5mcg -) 2 puff IH BID [facility] Last Admin: 04/04/19 09:17 Dose: 2 puff Duloxetine HCl (Cymbalta -) 30 mg PO DAILY [facility] Last Admin: 04/04/19 09:18 Dose: 30 mg Enoxaparin Sodium (Lovenox -) 40 mg SQ DAILY [facility] Last Admin: 04/04/19 09:18 Dose: 40 mg Sodium Chloride (Normal Saline -) 1,000 mls @ 50 mls/hr IV ASDIR [facility] Stop: 04/05/19 08:58 Last Admin: 04/04/19 09:19 Dose: 50 mls/hr Lorazepam (Ativan -) 1 mg PO ONCE ONE Stop: 04/03/19 16:48 Melatonin (Melatonin) 10 mg PO HS PRN PRN Reason: INSOMNIA Last Admin: 04/04/19 02:15 Dose: 10 mg Polyethylene Glycol (Miralax (For Daily Use) -) 17 gm PO DAILY PRN PRN Reason: CONSTIPATION Prednisone (Deltasone -) 40 mg PO DAILY [facility] Last Admin: 04/04/19 09:25 Dose: 40 mg Propranolol HCl (Inderal -) 10 mg PO TID [facility] Last Admin: 04/04/19 07:46 Dose: Not Given Rosuvastatin Calcium (Crestor -) 10 mg PO HS [facility] Last Admin: 04/03/19 22:56 Dose: 10 mg - Objective Vital Signs: Vital Signs Temperature 97.8 F 04/03/19 21:00 Pulse Rate 79 04/03/19 21:00 Respiratory Rate 20 04/03/19 21:00 Blood Pressure 138/75 04/03/19 21:00 O2 Sat by Pulse Oximetry (%) 96 04/03/19 21:00 Eyes: Yes: PERRL HENT: Yes: Atraumatic Neck: Yes: Supple Cardiovascular: Yes: Regular Rate and Rhythm, S1, S2 Respiratory: Yes: CTA Bilaterally Gastrointestinal: Yes: Normal Bowel Sounds, Soft. No: Tenderness Edema: No Additional Findings/Remarks: - Review of Systems Constitutional: denies: Chills, Fever Cardiovascular: reports: Chest Pain. denies: Palpitations, Shortness of Breath Respiratory: denies: Cough, Hemoptysis, Orthopnea, PND, SOB, SOB on Exertion Gastrointestinal: denies: Abdominal Pain, Constipation, Diarrhea, Melena, Nausea , Rectal Bleeding, Vomiting Neurological: reports: Dizziness, Headache. denies: Seizure, Syncope Labs: CBC, BMP 04/03/19 10:55 04/03/19 10:55 INR, PTT INR 1.03 (0.83-1.09) 04/01/19 16:12 Problem List - Problems (1) Acute cerebrovascular accident (CVA) Code(s): I63.9 - CEREBRAL INFARCTION, UNSPECIFIED (2) Chest pain Code(s): R07.9 - CHEST PAIN, UNSPECIFIED Qualifiers: Chest pain type: unspecified Qualified Code(s): R07.9 - Chest pain, unspecified (3) Right facial numbness Code(s): R20.0 - ANESTHESIA OF SKIN (4) Right-sided muscle weakness Code(s): M62.81 - MUSCLE WEAKNESS (GENERALIZED) (5) Diverticulitis large intestine Code(s): K57.32 - DVTRCLI OF LG INT W/O PERFORATION OR ABSCESS W/O BLEEDING Qualifiers: Diverticulitis bleeding: without bleeding Diverticulitis complication: without perforation or abscess Qualified Code(s): K57.32 - Diverticulitis of large intestine without perforation or abscess without bleeding (6) Hypercholesteremia Code(s): E78.00 - PURE HYPERCHOLESTEROLEMIA, UNSPECIFIED (7) Pre-diabetes Code(s): R73.03 - PREDIABETES Assessment/Plan 1. Acute CVA with residual right side deficit and dizziness 2. Hypercholesterolemia 3. Migraines 4. Bronchial asthma 5. History of diverticulitis and SBO PLAN: 1. Continue ASA 2. DVT prophylaxis 3. Continue statin therapy. Lipid panel reviewed with high LDL 4. Neurology second opinion pending as per patient request 5. Echocardiography to assess LV/RV and valvular function 6. Patient does not have evidence of atrial fibrillation but extended heart monitoring may be indicated as outpatient. 7. Continue pain management Further plans are to follow Felix Elkins MD
--- NOTE | 2019-04-04 09:39 | PN ---
Progress Note (short form) - Note Progress Note: NEUROSURGERY Denies chest pain or SOB, fever or chills. H/a and R facial numbness. Also c/o R shoulder pain to arm/forearm which persists; Did not tolerate neurontin or lyrica well previously; started on cymbalta Pt now relates h/o recent cervical spine radiofrequency rhizotomy In tele PE: 97.4, VSS, BP slightly higher and facial blushing likely secondary to prednisone HEENT- NC/AT, mild B facial blushing; neck- supple, no bruit; Cor- RR; Lungs- CTA; Abd- benign, mildly obese; Ext- no sign of DVT CN- mild R lower facial numbness to LT/PP; Motor- R D/B/BR/T/I 4/5, R LE 5+-5 ( improved) ; no further drift; Sensation- decreased LT/PP/vibration R UE; Cerebellar intact FTN B Head CT- L anterior frontal white matter small oval hyperdensity x2; no edema or shift Brain MRI- no acute ischemia, small L frontal chronic ischemia and periventricular gliosis C spine MRI (prelim)- mild broad C3-4 disc bulge; R C3-4 foramenal stenosis; L > R C5-6 disc bulge with mild thecal sac impingement, no cord compression ASA No neurosurgical intervention indicated at this time, doubt chronic C spine MRI findings causing pt's R sided UE symptoms given unilateral and multiple dermatome (C4,5,6) R sided symptoms Outpatient neurology f/u for possible R UE EMG/NCS Monitor neuro status Condition and possible tx d/w pt
--- NOTE | 2019-04-04 14:08 | PN ---
Progress Note, Physician History of Present Illness: Pt with right hand weakness improved; right leg w/o weakness. Pt w/o GUERRA, dizziness, CP, palpitations, abd pain, chocking when eating. - Current Medication List Current Medications: Active Medications Acetaminophen (Tylenol -) 650 mg PO Q6H PRN PRN Reason: HEADACHE- PAIN LEVEL 1-5 Acetaminophen/Butalbital/Caffeine (Fioricet -) 1 tablet PO Q6H PRN PRN Reason: HEADACHE-PAIN LEVEL 6-10 Last Admin: 04/03/19 22:55 Dose: 1 tablet Aspirin (Asa -) 81 mg PO DAILY [facility] Last Admin: 04/04/19 09:18 Dose: 81 mg Budesonide/Formoterol Fumarate (Symbicort 80/4.5mcg -) 2 puff IH BID [facility] Last Admin: 04/04/19 09:17 Dose: 2 puff Duloxetine HCl (Cymbalta -) 30 mg PO DAILY [facility] Last Admin: 04/04/19 09:18 Dose: 30 mg Enoxaparin Sodium (Lovenox -) 40 mg SQ DAILY [facility] Last Admin: 04/04/19 09:18 Dose: 40 mg Sodium Chloride (Normal Saline -) 1,000 mls @ 50 mls/hr IV ASDIR [facility] Stop: 04/05/19 08:58 Last Admin: 04/04/19 09:19 Dose: 50 mls/hr Lorazepam (Ativan -) 1 mg PO ONCE ONE Stop: 04/03/19 16:48 Melatonin (Melatonin) 10 mg PO HS PRN PRN Reason: INSOMNIA Last Admin: 04/04/19 02:15 Dose: 10 mg Polyethylene Glycol (Miralax (For Daily Use) -) 17 gm PO DAILY PRN PRN Reason: CONSTIPATION Prednisone (Deltasone -) 40 mg PO DAILY [facility] Last Admin: 04/04/19 09:25 Dose: 40 mg Propranolol HCl (Inderal -) 10 mg PO TID [facility] Last Admin: 04/04/19 07:46 Dose: Not Given Rosuvastatin Calcium (Crestor -) 10 mg PO HS [facility] Last Admin: 04/03/19 22:56 Dose: 10 mg - Objective Vital Signs: Vital Signs Temperature 99 F 04/04/19 10:00 Pulse Rate 80 04/04/19 10:00 Respiratory Rate 18 04/04/19 10:00 Blood Pressure 159/87 04/04/19 10:00 O2 Sat by Pulse Oximetry (%) 97 04/04/19 09:00 Constitutional: Yes: No Distress, Calm Cardiovascular: Yes: Regular Rate and Rhythm, S1, S2 Respiratory: Yes: Regular, CTA Bilaterally. No: Rales Gastrointestinal: Yes: Normal Bowel Sounds, Soft. No: Tenderness Edema: No Neurological: Yes: Alert, Oriented, Other (Right arm motor 4/5 Right leg motor is 4-5/5) Labs: CBC, BMP 04/03/19 10:55 04/03/19 10:55 INR, PTT INR 1.03 (0.83-1.09) 04/01/19 16:12 Problem List - Problems (1) Acute cerebrovascular accident (CVA) Assessment/Plan: Although clinical presentation suggested acute stroke Brain MRI w/o findings of acute stroke. Code(s): I63.9 - CEREBRAL INFARCTION, UNSPECIFIED (2) Hypercholesteremia Code(s): E78.00 - PURE HYPERCHOLESTEROLEMIA, UNSPECIFIED (3) Weakness of right upper extremity Code(s): R29.898 - OTH SYMPTOMS AND SIGNS INVOLVING THE MUSCULOSKELETAL SYSTEM (4) Right leg weakness Code(s): R29.898 - OTH SYMPTOMS AND SIGNS INVOLVING THE MUSCULOSKELETAL SYSTEM (5) Right upper limb pain Code(s): M79.601 - PAIN IN RIGHT ARM (6) Abnormal MRI, cervical spine Code(s): R93.7 - ABNORMAL FINDINGS ON DIAGNOSTIC IMAGING OF PRT MS SYS (7) Chronic cerebrovascular accident (CVA) Assessment/Plan: Small chronic CVA in Left frontal lobe ( per Brain MRI) Code(s): I69.30 - UNSPECIFIED SEQUELAE OF CEREBRAL INFARCTION Assessment/Plan Brain MRI w/o findings of acute stroke. NeuroSX, Neurology, Cardio consults are appreciated Pt asked to see a new Neurologist. Pt wants to go home without having the MRI,states that will go home AMA. I explained to pt the importance of Brain MRI and I reassured her that can go home in the evening is feeling OK. She agrees to stay for testing. Pt is scheduled for Brain MRI w contrast today. Start IVF. Pt's care was d/w tp's nurse.
--- NOTE | 2019-04-04 14:31 | CONSULT ---
Consult - text type - Consultation Consultation Note: Neurology Chief Complaint: right arm pain and dizziness History of Present Illness: The patient is a very pleasant 68-year-old female who hashyperlipidemia (self DC 'ed statin) in [facility] until he night prior to admission when developed right side CP on and off w/o associated symptoms (no palpitations, SOB, dizziness). Reportedly, the morning of admission she woke up around 5 AM pt woke up with right shoulder and arm pain, blurry vision, associated on and off with dizziness , w/o CP or palpitations or SOB or motor weakness. In the afternoon she decided to come to ER where was found to have weakness and decreased sensation of the right arm and leg. The patient was admitted for further evaluation and had noncontrast head CT which demonstrated likely calcifications. Neurology was consulted, Dr. Holley, and MRI of the brain was obtained which showed no acute changes but chronic left frontal infarct. MRA was also completed which I reviewed and showed patent vessels. Due to continued complaints, MRI of the cervical spine was completed and showed no evidence of spinal stenosis or compression, there was moderate C3/C4 narrowing along with mild C5/C6 narrowing. The patient endorses continued headaches and does have a history of migraines and was prescribed Fioricet during her admission but did not find it provide adequate relief. She reports being suggested to have Botox which she states had helped her in the past butwanted a second opinion for further clarification regarding results and diagnosis. I had an extensive conversation with her today and explained all the results and that I do feel that she has a complicated migraine. Her cervical spine imaging is consistent with age and no significant cord or root compression noted. I do feel she may benefit from physical therapy for her cervicalgia and continued neck pain. I also discussed with her trial of Topamax 25 mg hat she can continue as an outpatient She reports trying the medication in the past without complications and would be willing to try again. 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) Cardiovascular: Yes: Hyperlipdemia Pulmonary: Yes: Asthma Gastrointestinal: Yes: Constipation, Diverticulitis, Other (bowel obstruction ) Heme/Onc: Yes: Other (Thrombocytosis on ASA) Musculoskeletal: Yes: Chronic low back pain, Osteoarthritis - Past Surgical History Past Surgical History: Yes: Colectomy (elective laparoscopic sigmoidectomy) - Smoking History Smoking history: Never smoked Have you smoked in the past 12 months: No Aproximately how many cigarettes per day: 0 - Alcohol/Substance Use Hx Alcohol Use: No History of Substance Use: reports: None - Social History History of Recent Travel: No Home Medications - Allergies Allergies/Adverse Reactions: Allergies Allergy/AdvReac Type Severity Reaction Status Date / Time lansoprazole [From Prevacid] Allergy Severe Swelling Verified 02/18/15 08:06 metronidazole [From Flagyl] AdvReac Intermediate Vomiting Verified 02/18/15 08: 06 - Home Medications Home Medications: Ambulatory Orders Loratadine 10 mg PO PRN PRN 08/16/18 Review of Systems - Review of Systems Constitutional: denies: Chills, Fever Eyes: denies: Blurred Vision, Double Vision, Photophobia HENT: denies: Difficult Swallowing, Ear Discharge, Ear Pain, Epistaxis, Nasal Congestion, Throat Pain Neck: denies: Pain on Movement, Stiffness Cardiovascular: denies: Chest Pain, Edema, Palpitations Respiratory: denies: Cough, SOB, Wheezing Gastrointestinal: denies: Abdominal Pain, Nausea, Vomiting Genitourinary: denies: Burning, Discharge, Dysuria Musculoskeletal: denies: Back Pain, Muscle Pain Integumentary: denies: Bruising, Rash Neurological: denies: Change in LOC, Change in Speech, Confusion, Incoordination , Numbness, Weakness Endocrine: denies: Excessive Sweating, Intolerance to Cold Hematology/Lymphatic: denies: Easily Bruised, Excessive Bleeding Psychiatric: denies: Anxiety, Depression Physical Examination Vital Signs Period Temp Pulse Resp BP Sys/Sterling Pulse Ox Last 24 Hr 97.8 F-99 F 79-95 18-20 138-161/75-87 96-97 Constitutional: Yes: No Distress, Calm Eyes: Yes: Conjunctiva Clear, EOM Intact, PERRL HENT: Yes: Normocephalic. No: Epistaxis, Pharyngeal Erythema, Rhinnorhea Neck: Yes: Trachea Midline. No: Lymphadenopathy Cardiovascular: Yes: Regular Rate and Rhythm, S1, S2 Respiratory: Yes: Regular, CTA Bilaterally. No: Rhonchi Gastrointestinal: Yes: Normal Bowel Sounds, Soft. No: Tenderness ...Rectal Exam: Yes: Deferred Renal/: No: Bladder Distention, [place] Present Breast(s): Yes: Other (deferred) Musculoskeletal: No: Back Pain, Joint Stiffness Extremities: No: Cold, Cool, Cyanosis Edema: No Integumentary: No: Erythema, Rash Neurological: Yes: Alert, Oriented, Cran Nerves II-XII Intact strength intact 5/ 5 in LE, 5-/5 in RUE, sensory intact, finger to nose normal, no slurred speech Psychiatric: Yes: Alert, Oriented CBCD WBC 9.4 K/mm3 (4.0-10.0) 04/03/19 10:55 RBC 4.80 M/mm3 (3.60-5.2) 04/03/19 10:55 Hgb 15.0 GM/dL (10.7-15.3) 04/03/19 10:55 Hct 43.9 % (32.4-45.2) 04/03/19 10:55 MCV 91.5 fl (80-96) 04/03/19 10:55 MCHC 34.2 g/dl (32.0-36.0) 04/03/19 10:55 RDW 13.5 % (11.6-15.6) 04/03/19 10:55 Plt Count 511 K/MM3 (134-434) H D 04/03/19 10:55 MPV 7.7 fl (7.5-11.1) 04/03/19 10:55 CMP Sodium 136 mmol/L (136-145) 04/03/19 10:55 Potassium 4.3 mmol/L (3.5-5.1) 04/03/19 10:55 Chloride 101 mmol/L (98-107) 04/03/19 10:55 Carbon Dioxide 24 mmol/L (21-32) 04/03/19 10:55 Anion Gap 12 MMOL/L (8-16) 04/03/19 10:55 BUN 14.9 mg/dL (7-18) 04/03/19 10:55 Creatinine 0.9 mg/dL (0.55-1.3) 04/03/19 10:55 Random Glucose 183 mg/dL (74-106) H 04/03/19 10:55 Calcium 9.6 mg/dL (8.5-10.1) 04/03/19 10:55 Total Bilirubin 0.4 mg/dL (0.2-1) 04/03/19 10:55 AST 45 U/L (15-37) H 04/03/19 10:55 ALT 104 U/L (13-61) H 04/03/19 10:55 Alkaline Phosphatase 133 U/L (45-117) H 04/03/19 10:55 Total Protein 8.0 g/dl (6.4-8.2) 04/03/19 10:55 Albumin 3.9 g/dl (3.4-5.0) 04/03/19 10:55 CARDIAC ENZYMES Creatine Kinase 228 U/L (26-192) H 04/01/19 23:24 Troponin I < 0.02 ng/ml (0.00-0.05) 04/01/19 23:24 Assessment/Plan 68-year-old female who hashyperlipidemia (self DC'ed statin) in [facility] until he night prior to admission when developed right side CP on and off w/o associated symptoms (no palpitations, SOB, dizziness). Reportedly, the morning of admission she woke up around 5 AM pt woke up with right shoulder and arm pain, blurry vision, associated on and off with dizziness, w/o CP or palpitations or SOB or motor weakness. In the afternoon she decided to come to ER where was found to have weakness and decreased sensation of the right arm and leg. The patient was admitted for further evaluation and had noncontrast head CT which demonstrated likely calcifications. Neurology was consulted, Dr. Holley, and MRI of the brain was obtained which showed no acute changes but chronic left frontal infarct. MRA was also completed which I reviewed and showed patent vessels. Due to continued complaints, MRI of the cervical spine was completed and showed no evidence of spinal stenosis or compression, there was moderate C3/ C4 narrowing along with mild C5/C6 narrowing. The patient endorses continued headaches and does have a history of migraines and was prescribed Fioricet during her admission but did not find it provide adequate relief. She reports being suggested to have Botox which she states had helped her in the past butwanted a second opinion for further clarification regarding results and diagnosis. I had an extensive conversation with her today and explained all the results and that I do feel that she has a complicated migraine. Her cervical spine imaging is consistent with age and no significant cord or root compression noted. I do feel she may benefit from physical therapy for her cervicalgia and continued neck pain. I also discussed with her trial of Topamax 25 mg hat she can continue as an outpatient. Can start once daily at bedtime, and increase to twice a day in 3 days if no issues with the medication. She reports trying the medication in the past without complications and would be willing to try again. neurosurgery note reviewed and agree the patient does not require surgical intervention. Outpatient physical therapy can be considered. Cognitive rest discussed and recommended. Neurologically stable at this time, patient would also like to go home, no objection of discharge.
--- NOTE | 2019-04-04 14:46 | ECHO ---
Name: SREEDHARMORRIS CORTEZ Exam:Adult Echocardiogram Study Date: 04/04/2019 11:52 AM Age: 68 yrs Reason For Study: r/o thrombosis Height: 64 in Weight: 171 lb BSA: 1.8 m2 MMode/2D Measurements & Calculations IVSd: 0.98 cm Ao root diam: 2.7 cm LVIDd: 3.5 cm LA dimension: 2.6 cm LVIDs: 2.2 cm LVPWd: 0.92 cm EDV(Teich): 52.3 ml LVOT diam: 2.0 cm ESV(Teich): 16.6 ml LAV (MOD-bp): 27.0 ml Doppler Measurements & Calculations MV E max jean paul: 82.9 cm/sec Ao V2 max: 147.8 cm/sec MV A max jean paul: 74.7 cm/sec Ao max P.7 mmHg MV E/A: 1.1 AI P1/2t: 520.9 msec MV dec time: 0.17 sec MT(V,D): 2.7 cm2 AI max jean paul: 368.8 cm/sec LV V1 max P.1 mmHg AI max P.6 mmHg LV V1 max: 123.2 cm/sec AI dec slope: 207.3 cm/sec2 MR max jean paul: 504.4 cm/sec TR max jean paul: 250.0 cm/sec MR max P.2 mmHg TR max P.1 mmHg PA V2 max: 101.8 cm/sec Med Peak E' Jean Paul: 10.4 cm/sec PA max P.1 mmHg Med E/e': 7.9 Lat Peak E' Jean Paul: 10.7 cm/sec Lat E/e': 7.8 PI Vmax: 70.6 cm/sec Procedure A complete two-dimensional transthoracic echocardiogram was performed (2D, M-mode, Doppler and color flow Doppler). Left Ventricle The left ventricle is normal in size. Left ventricular systolic function is normal. Ejection Fraction = 60- 65%. No regional wall motion abnormalities noted. Right Ventricle The right ventricle is normal size. The right ventricular systolic function is normal. Atria The left atrial size is normal. Right atrial size is normal. Mitral Valve The mitral valve is normal in structure and function. There is mild mitral regurgitation. Tricuspid Valve The tricuspid valve is normal in structure and function. There is mild to moderate tricuspid regurgit ation. Pulmonary artery systolic pressure is at least 32 mmHg if RA pressure is assumed 3 mmHg. Aortic Valve There is mild aortic sclerosis.;. Mild aortic regurgitation. Pulmonic Valve The pulmonic valve is not well visualized. Great Vessels The aortic root is normal size. Pericardium/Pleura There is no pericardial effusion. Interpretation Summary The left ventricle is normal in size. Left ventricular systolic function is normal. No regional wall motion abnormalities noted. Ejection Fraction = 60-65%. The right ventricular systolic function is normal. The left atrial size is normal. Right atrial size is normal. There is mild mitral regurgitation. There is mild to moderate tricuspid regurgitation. Pulmonary artery systolic pressure is at least 32 mmHg if RA pressure is assumed 3 mmHg. There is mild aortic sclerosis. Mild aortic regurgitation. There is no pericardial effusion. Felix Elkins MD 04/04/2019 02:45 PM
[2019-04-04 15:45] VITALS: BP 137/64; PULSE 63; TEMP 97.8
--- NOTE | 2019-04-04 18:31 | DS ---
Physical Examination Vital Signs: Vital Signs Temperature 97.8 F 04/04/19 14:00 Pulse Rate 63 04/04/19 14:00 Respiratory Rate 20 04/04/19 14:00 Blood Pressure 137/64 04/04/19 14:00 O2 Sat by Pulse Oximetry (%) 97 04/04/19 09:00 Findings/Remarks: See today Progress Note for PHI, ROS, PE. Labs: CBC, BMP 04/03/19 10:55 04/03/19 10:55 Discharge Summary Reason For Visit: VERTIGO/WEAKNESS Current Active Problems Abnormal MRI, cervical spine (Acute) Acute cerebrovascular accident (CVA) (Acute) Chest pain (Acute) Chronic cerebrovascular accident (CVA) (Acute) Right facial numbness (Acute) Right leg weakness (Acute) Right upper limb pain (Acute) Right-sided muscle weakness (Acute) Weakness of right upper extremity (Acute) Procedures: Principal: Head CT scan. Brain MRI, MRI,Carotid US. ECHO,. Abd US Hospital Course: Pt with known HLD, Lower back pain ( seeing a Pain Management) came to ER with right upper arm pain and dizziness, noticed in ER to have Right arm weakness and right lef weakness, though to have acute CVA. Pt had head CT scan which raised possibility of punctate frontal lobe bleed. Pt was admitted to , was seen by NeuroSX (Dr Franklin Albright), Cardio (Dr Nichol Elkins), Neuro (Dr Holley; for second oppinion Dr. Espinoza). Pt had Brain MRI and MRA, not c/w Acute CVA, + for small frontal chronic infarct. C spine MRI was c/w disc degeneration at multiple levels and right neural foraminal narrowing at C3-C4 and C5-C6. Pt right arm and leg improved, cleared for DC with out pat f/u. Condition: Improved - Instructions - Home Medications Comprehensive Discharge Medication List: Ambulatory Orders
[2019-04-04] MEDS ORDERED: TOPIRAMATE 25 MG TABLET (FP) PO SCH (22:00)
== END 2019-04-04 19:25 | disposition home or self-care (01) | DRG 552 ==
LOC: JER 15:38 → JERBED 18:44 → JICU 04-02 00:26 → J4W 04-02 13:37
PROVIDERS: ADMIT Specialist; ATTEND Specialist
DX: M50.122 Cervical disc disorder at C5-C6 level with radiculopathy (principal); G81.91 Hemiplegia, unspecified affecting right dominant side; R42 Dizziness and giddiness; E78.5 Hyperlipidemia, unspecified; G43.909 Migraine, unspecified, not intractable, without status migrainosus; M50.11 Cervical disc disorder with radiculopathy, high cervical region; J45.909 Unspecified asthma, uncomplicated; E66.01 Morbid (severe) obesity due to excess calories; Z68.29 Body mass index [BMI] 29.0-29.9, adult
CPT/HCPCS: 36415; 70450-TC; 70544-TC; 70551-TC; 71046-TC-FY; 72141-TC; 76705-TC; 80053; 80061; 82550; 82553; 83721; 83735; 83880; 84100; 84439; 84443; 84484; 85025; 85027; 85610; 85651; 86038; 86140; 93005; 93010; 93306-TC; 93880-TC; 99284-25; G0008; J0131; J7030; Q2036

== ENCOUNTER 2019-10-01 14:12 | Emergency (ER) | payer OTHER ==
[2019-10-01 14:20] VITALS: TEMP 98.1; BMI 32.3
--- NOTE | 2019-10-01 14:37 | PDOC ---
History of Present Illness - General Chief Complaint: Chest Pain Stated Complaint: CHEST PAIN Time Seen by Provider: 10/01/19 14:34 - History of Present Illness Initial Comments: 10/01/19 14:37 69 yo F PMH HLD, lower back pain (seeing pain management), migraines, here with chest pain. States that it has been intermittent since Thursday, lasting seconds at a time, 8/10, sternal, into R arm, without any associated SOB or N/V. States that she went to the dentist multiple times in the past week, who could not find anything wrong. Patient notes that her daughter is a nurse practitioner, and encouraged her to come to the ER for an EKG. Notes that her L jaw pain is worsened with chewing, and that she has been told that she grinds her teeth when she sleeps. Currently, she has no complaints. Last admission in March 2019, came to ER with right arm and leg weakness, though to have acute CVA. Head CT scan raised possibility of punctate frontal lobe bleed. Pt was admitted to ICU, seen by neurosurgery (Dr. Franklin Albright), cardio (Dr Nichol Elkins), and neuro (Dr. Holley, with second opinion Dr. Espinoza). Brain MRI and MRA, showing small frontal chronic infarct. C spine MRI was c/w disc degeneration at multiple levels and right neural foraminal narrowing at C3-C4 and C5-C6. Right arm and leg ultimately improved, so patient followed ou tpatient. Denies SOB, GUERRA, N/V, fevers/chills, abd pain, urinary changes. Past History - Past Medical History Allergies/Adverse Reactions: Allergies Allergy/AdvReac Type Severity Reaction Status Date / Time lansoprazole [From Prevacid] Allergy Severe Swelling Verified 10/01/19 14:14 metronidazole [From Flagyl] AdvReac Intermediate Vomiting Verified 10/01/19 14:14 Home Medications: Ambulatory Orders Amoxicillin mg PO ASDIR 10/01/19 Fluticasone/Vilanterol [Breo Ellipta 100-25 Mcg INH] 1 each IH ASDIR 10/01/19 Anemia: No Asthma: Yes Cancer: No Cardiac Disorders: No CVA: No COPD: No CHF: No DVT: No Dementia: No Diabetes: No Dialysis: No GI Disorders: Yes (IBS,OBSTRUCTION,DIVERTIC) Disorders: No HTN: No Hypercholesterolemia: Yes Kidney Stones: No Liver Disease: (elevated liver enzyme) Seizures: No Thyroid Disease: No - Surgical History Abdominal Surgery: Yes (resection for diverticulitis) Appendectomy: No Cardiac Surgery: No Cholecystectomy: No Lung Surgery: No Neurologic Surgery: No Orthopedic Surgery: No - Immunization History Immunization Up to Date: No - Psycho Social/Smoking Cessation Hx Smoking Status: No Smoking History: Never smoked Have you smoked in the past 12 months: No Number of Cigarettes Smoked Daily: 0 Information on smoking cessation initiated: No Hx Alcohol Use: No Drug/Substance Use Hx: No Substance Use Type: None Hx Substance Use Treatment: No Review of Systems - Review of Systems Comments:: 10/01/19 14:45 GENERAL/CONSTITUTIONAL: denies fever, chills, diaphoresis, generalized weakness, malaise, loss of appetite, weight change HEAD, EYES, EARS, NOSE AND THROAT: denies rhinorrhea, nasal congestion, throat pain, throat swelling, difficulty swallowing, mouth swelling, ear pain, eye pain, visual changes NEUROLOGIC: denies headache, focal weakness or paresthesias, dizziness, unsteady gait, seizure, mental status changes, bladder or bowel incontinence CARDIOVASCULAR: endorses intermittent chest pain radiating into jaw and R arm. Denies syncope, palpitations, irregular heart rate, lightheadedness RESPIRATORY: denies cough, shortness of breath, dyspnea with exertion, orthopnea, wheezing, stridor, hemoptysis GASTROINTESTINAL: denies abdominal pain, abdominal distension, nausea, vomiting, diarrhea, constipation, melena, hematochezia GENITOURINARY: denies dysuria, frequency, urgency, hesitancy, hematuria, flank pain, genital pain MUSCULOSKELETAL: denies myalgia, arthralgia, joint swelling, back pain, neck pain SKIN: denies rash, itching, pallor HEMATOLOGIC/IMMUNOLOGIC: denies easy bleeding, easy bruising, lymphadenopathy, frequent infections ENDOCRINE: denies unexplained weight gain, unexplained weight loss, heat intolerance, cold intolerance PSYCHIATRIC: denies anxiety, depression, suicidal or homicidal ideation, hallucinations *Physical Exam - Vital Signs Last Vital Signs Temp Pulse Resp BP Pulse Ox 98.1 F 89 18 156/81 99 10/01/19 14:12 10/01/19 14:12 10/01/19 14:12 10/01/19 14:12 10/01/19 14:12 - Physical Exam 10/01/19 14:46 Gen: well-developed, well-nourished, NAD Neuro: AAOX4, CN II-XII grossly intact HEENT: atraumatic, normocephalic. Tenderness at left TMJ Neck: trachea midline, supple CV: regular rate, regular rhythm, no murmurs, rubs, or gallops Pulm: CTA b/l, no wheezing Abd: soft, non-distended, non-tender MSK: full ROM, intact pulses Extr: no edema, no deformities Skin: warm, dry ED Treatment Course - LABORATORY CBC & Chemistry Diagram: 10/01/19 14:50 10/01/19 14:50 - RADIOLOGY Radiology Studies Ordered: Category Date Time Status CHEST X-RAY PORTABLE* [RAD] Stat Radiology 10/01/19 14:30 Ordered Medical Decision Making - Medical Decision Making 10/01/19 14:36 Low likelihood for ACS, but must rule out cardiac etiology. L jaw pain likely 2/2 TMJ. - CBC, CMP - EKG, trop - CXR EKG normal sinus at 82 bpm, DE 130, QRS 80, QTc 429. Shared decision making with patient, expressed that for patients of this age, we often admit for telemetry observation. Patient states that particularly in the current environment, she does not want to be admitted. If labs and trops are normal, will plan to dc for further outpatient management. 10/01/19 15:53 Na 132, but patient does have an EMANUEL with Cr of 1.6. 10/01/19 16:05 Discussed all results with patient and her daughter, who is a nurse practitioner . They are in agreement that the patient will follow the creatinine outpatient and drink plenty of fluids. Will dc patient for further outpatient management. Discharge - Discharge Information Problems reviewed: Yes Clinical Impression/Diagnosis: Temporomandibular joint (TMJ) pain, Atypical chest pain, EMANUEL (acute kidney injury) Condition: Stable Disposition: HOME - Admission No - Follow up/Referral Referrals: Stefan Fermin MD [Primary Care Provider] - - Patient Discharge Instructions Patient Printed Discharge Instructions: DI for Atypical Chest Pain, DI for Temporomandibular Disorder Additional Instructions: You were seen with shortness of breath and left jaw pain. Your jaw pain is likely due to temperomandibular dysfunction; you may take medications such as acetaminophen, and consider a bite block. Your EKG and chest X-ray did not show any acute findings, but your labs did show worsened function. This is likely due to dehydration, but it is very important that you get this checked by your primary care doctor. Drink plenty of fluids. Follow up with your primary care doctor within one week. Return to the ER if you develop new or worsening symptoms. - Post Discharge Activity
--- NOTE | 2019-10-01 15:02 | PDOC ---
Attending Attestation - Resident Resident Name: Rowan Gilbert - ED Attending Attestation I have performed the following: I have examined & evaluated the patient, The case was reviewed & discussed with the resident, I agree w/resident's findings & plan, Exceptions are as noted - HPI HPI: 10/01/19 15:00 69 yo F with h/o prior weakness possible tia, here today with intermittent cp since 5 days. also c/o unrelated left jaw pain for which she has seen a dentist. also c/o mild headache. no cough no sob. mild headache has h/o migraines. 10/01/19 15:05 10/01/19 15:10 - Physicial Exam PE: 10/01/19 15:09 awake alert lungs clear bilat heart rrr no mrg abd soft nt nd ext wwp. nuero alert oriented x 3. - Medical Decision Making 10/01/19 15:10 69 yo F with c/o chest pain. jaw pain and mild headahce. 10/01/19 15:10 on exam pt normal exam. normal vs. plan labs ekg trop cxr. differential infection, pna, angina, . asa given in ed. Discharge - Discharge Information Condition: Fair - Follow up/Referral Referrals: Stefan Fermin MD [Primary Care Provider] - - Patient Discharge Instructions - Post Discharge Activity
[2019-10-01] MEDS ORDERED: ASPIRIN 81 MG CHEWABLE TABLETS PO ONE (15:04)
[2019-10-01 15:06] LABS: BASO % 1.6 % (0-2.0); EOS % 1.6 % (0-4.5); HEMATOCRIT 42.5 % (32.4-45.2); HEMOGLOBIN 13.9 GM/dl (10.7-15.3); LYMPH % 28.8 % (8-40); MCHC 32.5 g/dl (32.0-36.0); MEAN CELL VOLUME 95.2 fl (80-96); MEAN PLT VOLUME 7.9 fl (7.5-11.1); MONO % 5.3 % (3.8-10.2); NEUT % 62.7 % (42.8-82.8); PLATELET COUNT 510 K/MM3 (134-434); RBC 4.47 M/mm3 (3.60-5.2)
[2019-10-01] MEDS ORDERED: ASPIRIN 81 MG CHEWABLE TABLETS ONE (15:09)
[2019-10-01 15:14] LABS: ALBUMIN 3.8 g/dl (3.4-5.0); BILIRUBIN,TOTAL 0.6 mg/dl (0.2-1); CALCIUM 8.7 mg/dl (8.5-10); CREATININE 1.6 mg/dl (0.55-1.3); POTASSIUM 4.3 mmol/L (3.5-5.1); TOT PROT 6.7 g/dl (6.4-8.2)
[2019-10-01 16:34] VITALS: BP 126/63; PULSE 79
--- NOTE | 2019-10-03 15:07 | EKG ---
Test Reason : Blood Pressure : / mmHG Vent. Rate : 082 BPM Atrial Rate : 082 BPM P-R Int : 130 ms QRS Dur : 080 ms QT Int : 368 ms P-R-T Axes : 066 033 041 degrees QTc Int : 429 ms NORMAL SINUS RHYTHM NORMAL ECG WHEN COMPARED WITH ECG OF 01-APR-2019 15:40, NO SIGNIFICANT CHANGE WAS FOUND Confirmed by HARVEY PAVON MD ([id number]) on 10/03/2019 3:07:01 PM Referred By: DR ZALDIVAR Confirmed By:HARVEY PAVON MD
== END 2019-10-01 16:40 | disposition home or self-care (01) ==
LOC: FER 14:12
DX: M26.603 Bilateral temporomandibular joint disorder, unspecified (principal); R07.9 Chest pain, unspecified; N17.9 Acute kidney failure, unspecified
CPT/HCPCS: 36415; 71045-TC-FY; 80053; 84484; 85025; 93005; 99284-25

== ENCOUNTER 2020-01-06 20:45 | Emergency (ER) | payer OTHER ==
[2020-01-06 21:01] VITALS: BP 153/69; PULSE 87; TEMP 98.8; BMI 29.2
[2020-01-06 21:35] LABS: HEMATOCRIT 41.9 % (32.4-45.2); HEMOGLOBIN 14.5 GM/dl (10.7-15.3); MCH 30.7 pg (25.7-33.7); MCHC 34.7 g/dl (32.0-36.0); MEAN CELL VOLUME 88.7 fl (80-96); MEAN PLT VOLUME 7.9 fl (7.5-11.1); PLATELET COUNT 488 K/MM3 (134-434); RBC 4.73 M/mm3 (3.60-5.2); RDW 13.2 % (11.6-15.6); WHITE BLOOD COUNT 10.9 K/mm3 (4.0-10.8)
[2020-01-06] MEDS ORDERED: ONDANSETRON 4 MG/2 ML VIAL IVPUSH ONE (21:43)
[2020-01-06] MEDS ORDERED: KETOROLAC TROMETHAMINE 30 MG/1 ML VIAL IVPUSH ONE (21:43)
[2020-01-06] MEDS ORDERED: SODIUM CHLORIDE 1,000 ML IV STA (21:43)
[2020-01-06 21:46] LABS: INR 1.09 (0.82-1.09); PROTHROMBIN TIME (PATIENT) 12.2 SEC (10.2-13.0)
[2020-01-06] MEDS ORDERED: ONDANSETRON 4 MG/2 ML VIAL ONE (21:47)
[2020-01-06] MEDS ORDERED: KETOROLAC TROMETHAMINE 30 MG/1 ML VIAL ONE (21:47)
[2020-01-06 22:08] LABS: ALBUMIN 3.9 g/dl (3.4-5.0); BILIRUBIN,TOTAL 0.7 mg/dl (0.2-1); CALCIUM 9.1 mg/dl (8.5-10); CREATININE 0.7 mg/dl (0.55-1.3); POTASSIUM 4.2 mmol/L (3.5-5.1); TOT PROT 6.7 g/dl (6.4-8.2)
[2020-01-06 22:32] LABS: PLATELET ESTIMATE SLT INCREASE
[2020-01-07] MEDS ORDERED: ACETAMINOPHEN 1000 MG/100 ML VIAL (NON FORMULARY) IVPB ONE (00:11)
[2020-01-07] MEDS ORDERED: ACETAMINOPHEN INJECTION 100 ML IVPB ONE (00:14)
--- NOTE | 2020-01-07 01:18 | PDOC ---
Documentation entered by Maira Bender SCRIBE, acting as scribe for Julia Okeefe MD. Julia Okeefe MD: This documentation has been prepared by the sohanibeNapoleon Lincy, SCRIBE, under my direction and personally reviewed by me in its entirety. I confirm that the documentation accurately reflects all work, treatment, procedures, and medical decision making performed by me. History of Present Illness - General Chief Complaint: Pain Stated Complaint: ABD PAIN Time Seen by Provider: 01/06/20 20:47 History Source: Patient Exam Limitations: No Limitations - History of Present Illness Initial Comments: 01/06/20 21:54 The patient is a 69-year-old female with past medical history diverticulitis (s/p colon resection in 2010) who presents to the emergency department with abdominal pain. The patient reports she hasnt had a complete bowel movement in the past few days, and has been taking lactulose and Miralax for the symptom, with very little passing of stool and increased flatulence. The patient reports around 2:00 pm today she had an onset of abdominal pain, more felt to the right upper abdomen, and lower abdominal region, states she feels blockage there. The patient reports the symptoms seem similar to prior episodes of small bowel obstruction. The patient reports associated symptoms of nausea denies vomiting. Denies fever, chills, chest pain, or shortness of breath. Past History - Medical History Allergies/Adverse Reactions: Allergies Allergy/AdvReac Type Severity Reaction Status Date / Time lansoprazole [From Prevacid] Allergy Severe Swelling Verified 01/06/20 20:46 metronidazole [From Flagyl] AdvReac Intermediate Vomiting Verified 01/06/20 20: 46 Home Medications: Ambulatory Orders Fluticasone/Vilanterol [Breo Ellipta 100-25 Mcg INH] 1 each IH ASDIR 10/01/19 Amox-Tr/K Cl [Augmentin - 875Mg Tablet] 1 tab PO BID #20 tablet 01/07/20 Anemia: No Asthma: Yes Cancer: No Cardiac Disorders: No CVA: No COPD: No CHF: No DVT: No Dementia: No Diabetes: No Dialysis: No GI Disorders: Yes (IBS,OBSTRUCTION,DIVERTIC) Disorders: No HTN: No Hypercholesterolemia: Yes Kidney Stones: No Liver Disease: (elevated liver enzyme) Seizures: No Thyroid Disease: No - Surgical History Abdominal Surgery: Yes (resection for diverticulitis) Appendectomy: No Cardiac Surgery: No Cholecystectomy: No Lung Surgery: No Neurologic Surgery: No Orthopedic Surgery: No - Immunization History Immunization Up to Date: No - Psycho-Social/Smoking History Smoking Status: No Smoking History: Never smoked Have you smoked in the past 12 months: No Number of Cigarettes Smoked Daily: 0 Information on smoking cessation initiated: No - Substance Abuse Hx (Audit-C & DAST Scrn) How often the patient has a drink containing alcohol: Never Score: In Men: 4 or > Positive; In Women: 3 or > Positive: 0 Screen Result (Pos requires Nsg. Audit-10AR): Negative In the last yr the pt used illegal drug/Rx for NonMed reason: No Score: Yes response is considered Positive: 0 Screen Result (Positive result requires Nsg. DAST-10): Negative Review of Systems - Review of Systems Able to Perform ROS?: Yes Comments:: 01/06/20 21:54 CONSTITUTIONAL: Pt denies Fever, Chills, weakness. HEENT: denies vision changes, sore throat RESPIRATORY: Denies cough, sob, hemoptysis CARDIAC: denies chest pain, palpitations, lightheadedness, leg swelling ABD/GI: +abdominal pain and nausea. denies vomiting, blood per rectum, melena, diarrhea : denies dysuria, frequency, discharge MSK: denies back pain, joint swelling SKIN: denies bruising, erythema, rash NEUROLOGICAL: denies headache, numbness, focal weakness, tingling, ataxia, weakness HEMATOLOGICAL: denies anemia, easy bruising, easy bleeding *Physical Exam - Vital Signs Last Vital Signs Temp Pulse Resp BP Pulse Ox 98.8 F 87 16 153/69 98 01/06/20 20:45 01/06/20 20:45 01/06/20 20:45 01/06/20 20:45 01/06/20 20:45 - Physical Exam 01/06/20 21:55 GENERAL: The patient is awake, alert, and fully oriented, in no acute distress. HEAD: Normal with no signs of trauma. EYES: Pupils equal, round and reactive to light, extraocular movements intact, sclera anicteric, conjunctiva clear with no pallor. ENT: Ears normal, nares patent, oropharynx clear without exudates. +dry mucous membranes. NECK: Normal range of motion LUNGS: Breath sounds equal, clear to auscultation bilaterally. HEART: Regular rate and rhythm ABDOMEN: +moderate tenderness to the left lower quadrant without rebound or involuntary guarding. Hypoactive bowel sounds. EXTREMITIES: Normal range of motion, no edema. NEUROLOGICAL: alert and oriented x3. Normal speech, normal gait. SKIN: Warm, Dry, normal turgor, no rashes or lesions noted. ED Treatment Course - LABORATORY CBC & Chemistry Diagram: 01/06/20 21:10 01/06/20 21:45 Medical Decision Making - Medical Decision Making As noted above, this 69-year-old woman with a history of recurrent SBO after colon resection for diverticular disease presents with few day history of abdominal pain with nausea but no vomiting. Exam as noted above Laboratory evaluation notable for mild elevation of white blood cell count (10,900 with left shift) but no other significant abnormality 01/07/20 01:59 CT abdomen/pelvis with oral and IV contrast performed. Preliminary interpretation by Imaging dish up person: Mild acute diverticulitis of the sigmoid colon with mild pericolonic mesenteric edema. No free air or abscess present. No evidence of small bowel obstruction with moderate amount of gas and stool in the colon. Other than bilateral nonspecific lung nodules and hypodense right liver lobe lesion measuring 1.2 cm, no other significant abnormality seen. Results discussed with the patient. She currently describes her pain as being largely resolved and no further nausea after 1 dose of Zofran on presentation. Since patient is not nauseated or vomiting and pain is not severe, she is a candidate for outpatient treatment of her acute diverticulitis. Patient is allergic to metronidazole. She has taken amoxicillin/clavulanate in the past without significant side effects. The patient will be prescribed Augmentin 875/125 twice a day for 10 days with each dose to be taken with a meal. First dose will be given here in the emergency room and the patient will eat when she returns home. She will return to the ER if she develops nausea/vomiting, persistent severe pain or fever. Patient understands the plan and agrees to it. Discharge - Discharge Information Problems reviewed: Yes Clinical Impression/Diagnosis: Acute diverticulitis Condition: Stable Disposition: HOME - Additional Discharge Information Prescriptions: Amox-Tr/K Cl [Augmentin - 875Mg Tablet] 1 tab PO BID #20 tablet - Follow up/Referral Referrals: Stefan Fermin MD [Primary Care Provider] - - Patient Discharge Instructions Patient Printed Discharge Instructions: Diverticulitis Additional Instructions: Light diet Augmentin 875/125 twice a day for 10 days; take with a meal Return to ER if you have severe pain, nausea/vomiting, fever Contact your doctor and discuss today's ER visit; follow-up as arranged - Post Discharge Activity
[2020-01-07] MEDS ORDERED: AMOX TR/POT CLAV 875MG/125MG TABLETS (FP) PO ONE (01:55)
[2020-01-07] MEDS ORDERED: AMOX TR/POT CLAV 875MG/125MG TABLETS (FP) ONE (01:58)
--- NOTE | 2020-01-07 11:06 | PDOC ---
Patient Follow-up (Call Back) - Post ED Follow - Up Condition at time of discharge: Stable Disposition at time of original discharge: HOME - Disposition Additional Instructions/Notes: Patient seen last night and prescribed Augmentin for mild diverticulitis. Her pharmacy is closed today and she requests the prescription to be sent to a different pharmacy. Prescription resent to [facility] pharmacy [facility] in [place] as requested.
== END 2020-01-07 02:09 | disposition home or self-care (01) ==
LOC: FER 20:45
PROC: 3E033GC Introduction of Other Therapeutic Substance into Peripheral Vein, Percutaneous Approach (ICD-10-PCS; principal; 2020-01-06)
PROC: 3E0337Z Introduction of Electrolytic and Water Balance Substance into Peripheral Vein, Percutaneous Approach (ICD-10-PCS; principal; 2020-01-06)
PROC: 3E033GC Introduction of Other Therapeutic Substance into Peripheral Vein, Percutaneous Approach (ICD-10-PCS; 2020-01-07)
DX: K57.92 Diverticulitis of intestine, part unspecified, without perforation or abscess without bleeding (principal)
CPT/HCPCS: 36415; 74177-TC; 80053; 81003; 81015; 85025; 85610; 99285-25; J0131; Q9967

== ENCOUNTER 2020-11-18 01:46 | Emergency (ER) | payer OTHER ==
[2020-11-18 01:58] VITALS: PULSE 65; TEMP 98.7; BMI 29.5
[2020-11-18 02:52] LABS: BASO % 1.1 % (0-2.0); EOS % 2.3 % (0-4.5); HEMATOCRIT 38.9 % (32.4-45.2); HEMOGLOBIN 13.5 GM/dL (10.7-15.3); LYMPH % 32.5 % (8-40); MCH 31.6 pg (25.7-33.7); MCHC 34.7 g/dl (32.0-36.0); MEAN CELL VOLUME 91.3 fl (80-96); MEAN PLT VOLUME 7.5 fl (7.5-11.1); NEUT % 56.1 % (42.8-82.8); PLATELET COUNT 431 K/MM3 (134-434); RBC 4.26 M/mm3 (3.60-5.2); RDW 13.4 % (11.6-15.6)
[2020-11-18] MEDS ORDERED: ACETAMINOPHEN/CAFFEINE/BUTALBITAL 1 TAB ONE (03:04)
[2020-11-18 03:10] LABS: CALCIUM 8.7 mg/dL (8.5-10.1)
[2020-11-18 03:11] LABS: ALBUMIN 3.5 g/dl (3.4-5.0); BLOOD UREA NITROGEN 20.9 mg/dL (7-18)
[2020-11-18 03:14] LABS: CREATININE 0.6 mg/dL (0.55-1.3)
[2020-11-18 03:16] LABS: BILIRUBIN,TOTAL 0.2 mg/dL (0.2-1); TOT PROT 6.6 g/dl (6.4-8.2)
[2020-11-18] MEDS ORDERED: ACETAMINOPHEN/CAFFEINE/BUTALBITAL 1 TAB PO ONE (03:57)
[2020-11-18] MEDS ORDERED: SODIUM CHLORIDE 1,000 ML IV ONE (03:58)
[2020-11-18 05:31] VITALS: BP 143/62
== END 2020-11-18 06:01 | disposition home or self-care (01) ==
LOC: FER 01:46
PROC: 3E0337Z Introduction of Electrolytic and Water Balance Substance into Peripheral Vein, Percutaneous Approach (ICD-10-PCS; principal; 2020-11-18)
DX: G43.909 Migraine, unspecified, not intractable, without status migrainosus (principal)
CPT/HCPCS: 36415; 70450-TC; 74174-TC; 80053; 85025; 99284-25; Q9967

== ENCOUNTER 2021-12-28 16:49 | Observation (INO) | payer OTHER ==
[2021-12-28] MEDS ORDERED: ONDANSETRON 4 MG/2 ML VIAL IVPUSH ONE (17:15)
[2021-12-28] MEDS ORDERED: ACETAMINOPHEN 1000 MG/100 ML BAG IVPB ONE (17:28)
[2021-12-28] MEDS ORDERED: ONDANSETRON 4 MG/2 ML VIAL ONE (18:04)
[2021-12-28] MEDS ORDERED: ACETAMINOPHEN INJECTION 100 ML IVPB ONE (18:05)
[2021-12-28 18:16] LABS: HEMATOCRIT 43.9 % (32.4-45.2); MCH 31.6 pg (25.7-33.7); MCHC 34.2 g/dl (32.0-36.0); MEAN CELL VOLUME 92.4 fl (80-96); MEAN PLT VOLUME 7.4 fl (7.5-11.1); PLATELET COUNT 464.8 10^3/uL (134-434); RBC 4.75 10^6/uL (3.60-5.2); RDW 13.9 % (11.6-15.6); WHITE BLOOD COUNT 15.6 10^3/uL (4.0-10.8)
[2021-12-28 18:20] LABS: ALBUMIN 4.1 g/dl (3.4-5.0); BILIRUBIN,TOTAL 0.5 mg/dl (0.2-1); CALCIUM 9.5 mg/dl (8.5-10); CREATININE 0.8 mg/dl (0.55-1.3); TOT PROT 7.2 g/dl (6.4-8.2)
[2021-12-28 18:22] LABS: INR 0.98 (0.83-1.09); PROTHROMBIN TIME (PATIENT) 11.3 SEC (9.7-13.0)
[2021-12-28 18:24] LABS: ACTIVATED PTT 31.2 SECONDS (25.2-36.5)
[2021-12-28] MEDS ORDERED: LACTULOSE 20 GM/30 ML UDC (FOR ORAL USE ONLY) PO ONE (19:35)
[2021-12-28] MEDS ORDERED: LACTULOSE 20 GM/30 ML UDC (FOR ORAL USE ONLY) ONE (19:37)
[2021-12-28 20:12] LABS: EPITHELIAL CELLS FEW /hpf
[2021-12-28] MEDS ORDERED: HYOSCYAMINE SULFATE 0.125 MG *ODT PO ONE (21:46)
[2021-12-28] MEDS ORDERED: KETOROLAC TROMETHAMINE 30 MG/1 ML VIAL IVPUSH ONE (22:13)
[2021-12-28] MEDS ORDERED: BISACODYL 10 MG SUPP.RECT PR ONE (22:16)
[2021-12-28] MEDS ORDERED: KETOROLAC TROMETHAMINE 30 MG/1 ML VIAL ONE (22:16)
[2021-12-28] MEDS ORDERED: BISACODYL 10 MG SUPP.RECT ONE (22:21)
[2021-12-28] MEDS ORDERED: DEXTROSE 5%-NORMAL SALINE 1,000 ML IV SCH (23:15)
[2021-12-28] MEDS ORDERED: AMITRIPTYLINE HCL 50 MG TABLET PO SCH (23:17)
[2021-12-28] MEDS ORDERED: ALBUTEROL SO4 HFA INHALER IH PRN (23:18)
[2021-12-29] MEDS ORDERED: ACETAMINOPHEN 1000 MG/100 ML BAG IVPB PRN
[2021-12-29] MEDS ORDERED: ONDANSETRON 4 MG/2 ML VIAL IVPUSH PRN
[2021-12-29 01:18] VITALS: BMI 33.9
[2021-12-29] MEDS: propRANOLol HCL 10 MG TABLET PO SCH ×2 (01:19→06:10)
[2021-12-29] MEDS ORDERED: ACETAMINOPHEN/CAFFEINE/BUTALBITAL 1 TAB PO PRN (07:30)
[2021-12-29 08:41] LABS: CALCIUM 8.3 mg/dl (8.5-10); CREATININE 0.8 mg/dl (0.55-1.3); MAGNESIUM 2.1 mg/dL (1.8-2.4)
[2021-12-29 08:42] LABS: RBC 4.04 10^6/uL (3.60-5.2); WHITE BLOOD COUNT 12.9 10^3/uL (4.0-10.8)
[2021-12-29 08:43] LABS: HEMATOCRIT 37.7 % (32.4-45.2); HEMOGLOBIN 13.8 G/dL (10.7-15.3); MCH 32.9 pg (25.7-33.7); MCHC 35.2 g/dl (32.0-36.0); MEAN CELL VOLUME 93.3 fl (80-96); MEAN PLT VOLUME 7.4 fl (7.5-11.1); PLATELET COUNT 416 10^3/uL (134-434); RDW 13.9 % (11.6-15.6)
[2021-12-29] MEDS ORDERED: ACETAMINOPHEN 325 MG TABLET (FP) PO ONE (09:39)
[2021-12-29 09:55] VITALS: BP 154/63; PULSE 70; TEMP 97.4
[2021-12-29] MEDS ORDERED: PANTOPRAZOLE 40 MG TABLET PO SCH (10:00)
[2021-12-29] MEDS ORDERED: HYDROCHLOROTHIAZIDE 12.5 MG CAPSULE (FP) PO SCH (10:00)
[2021-12-29 10:51] LABS: ALBUMIN 3.2 g/dl (3.4-5.0); BILIRUBIN,DIRECT 0.2 mg/dL (0.0-0.2); BILIRUBIN,TOTAL 0.7 mg/dl (0.2-1); TOT PROT 6.5 g/dl (6.4-8.2)
[2021-12-30] MEDS ORDERED: ACETAMINOPHEN 325 MG TABLET (FP) PO PRN
[2021-12-30] MEDS ORDERED: ENOXAPARIN NA (PORCINE) 40 MG/0.4 ML DISP.SYRIN SQ SCH (10:00)
== END 2021-12-29 12:45 | disposition home or self-care (01) ==
LOC: FER 16:49 → FM/S 12-29 00:30
PROVIDERS: ADMIT Hospitalist; ATTEND Nurse Practitioner Family
PROC: 3E033NZ Introduction of Analgesics, Hypnotics, Sedatives into Peripheral Vein, Percutaneous Approach (ICD-10-PCS; principal; 2021-12-29)
PROC: 3E0337Z Introduction of Electrolytic and Water Balance Substance into Peripheral Vein, Percutaneous Approach (ICD-10-PCS; 2021-12-29)
PROC: 3E0333Z Introduction of Anti-inflammatory into Peripheral Vein, Percutaneous Approach (ICD-10-PCS; 2021-12-29)
PROC: 3E033GC Introduction of Other Therapeutic Substance into Peripheral Vein, Percutaneous Approach (ICD-10-PCS; 2021-12-29)
DX: I11.0 Hypertensive heart disease with heart failure (principal); I50.9 Heart failure, unspecified; R10.10 Upper abdominal pain, unspecified; D72.9 Disorder of white blood cells, unspecified; K57.92 Diverticulitis of intestine, part unspecified, without perforation or abscess without bleeding; E66.8 Other obesity; G43.909 Migraine, unspecified, not intractable, without status migrainosus; Z68.33 Body mass index [BMI] 33.0-33.9, adult; E78.5 Hyperlipidemia, unspecified; K58.9 Irritable bowel syndrome, unspecified; Z87.19 Personal history of other diseases of the digestive system; Z88.8 Allergy status to other drugs, medicaments and biological substances; Z87.891 Personal history of nicotine dependence
CPT/HCPCS: 36415; 71045-TC-FY; 74176-TC; 80048; 80053; 80076; 81003; 81015; 83735; 85025; 85610; 85730; 86140; 86850; 86900; 86901; 93005; 96365; 96375; 96376; 99285-25; C9803-CS; G0378; U0003; U0005